=== PATIENT | female | born 1945 | race Two or more races ===

== ENCOUNTER 2019-02-07 22:51 | Inpatient (IN) | payer MEDICARE, MEDICAID ==
[~2019-02-07] VITALS: Ht 162.6 cm; Wt 86.2 kg
--- NOTE | 2019-02-07 22:55 | NUR ---
ED Nurse Note: Pt MAUDEA RA 32, no medicl complaints at this time, [facility] home refused to accept pt from EMS after being sent home from a clinic. Pt is AO x 3~4 times, on 2L N/C. KIRA seen Pt at bedside.
[2019-02-07] MEDS ORDERED: AMLODIPINE BESY10 MG ORAL (23:02)
[2019-02-07] MEDS ORDERED: ASPIRIN81 MG ORAL (23:02)
[2019-02-07] MEDS ORDERED: LANTUS SOL100 UNIT/1 SUBQ (23:02)
[2019-02-07] MEDS ORDERED: ATORVASTATIN CA40 MG ORAL (23:02)
[2019-02-07] MEDS ORDERED: HYDRALAZINE HCL50 MG ORAL (23:02)
[2019-02-07] MEDS ORDERED: FUROSEMIDE40 MG ORAL (23:02)
[2019-02-07] MEDS ORDERED: METOPROLOL SUC100 MG ORAL (23:02)
[2019-02-07] MEDS ORDERED: METFORMIN HCL1000 M1 ORAL (23:02)
[2019-02-07] MEDS ORDERED: LISINOPRIL40 MG ORAL (23:02)
[2019-02-07] MEDS ORDERED: CLOPIDOGREL75 MG ORAL (23:02)
--- NOTE | 2019-02-07 23:20 | Emergency Room Report ---
History of Present Illness General Chief Complaint: General Complaint Source: Patient, Medical Record Present Illness HPI This is a 73-year-old female with a history of diabetes, CHF, frequent fall who was just discharged from [facility] on January 30, 2018 for acute CHF exacerbation. [facility] for chief complaint of increasing weakness and fall. Work-up data showed elevated glucose and patient was given insulin. Also labs and chest x- ray show CHF. Patient was given a dose of Lasix. She was hypoxic on room air at 83%. On 4 L it went to 98%. She was seen there and sent to a SNF via BLS. When she moved at the skilled nursing, because of her condition, they refused admission and EMS brought her here instead. Patient is complaining of generalized weakness. Denies any other trauma. Denies any fever chills but denies any nausea or vomiting. Allergies: Uncoded Allergies: SULFA (Allergy, Unknown, 02/07/19) Patient History Past Medical History: see triage record, old chart reviewed, DM, HTN Past Surgical History: other Pertinent Family History: none Social History: Denies: smoking Now: No Immunizations: other Reviewed Nursing Documentation: PMH: Agreed; PSxH: Agreed Nursing Documentation-PMH Past Medical History: No Stated History Hx Cardiac Problems: Yes - CHF Hx Hypertension: Yes Hx COPD: Yes Hx Diabetes: Yes Review of Systems Constitutional: Reports: malaise, weakness Eye: Denies: eye pain, blurred vision ENT: Denies: ear pain, nose congestion, throat swelling Respiratory: Denies: cough, shortness of breath Cardiovascular: Denies: chest pain, palpitations Gastrointestinal: Denies: abdominal pain, diarrhea, nausea, vomiting Musculoskeletal: Denies: back pain, joint pain Skin: Denies: rash Neurological: Denies: headache, numbness Endocrine: Denies: increased thirst, increased urine Hematologic/Lymphatic: Denies: easy bruising All Other Systems: negative except mentioned in HPI Physical Exam Vital Signs Date Time Temp Pulse Resp B/P (MAP) Pulse Ox O2 Delivery O2 Flow Rate FiO2 02/07/19 22:50 98.1 18 16 121/93 (102) 97 Room Air Vitals unremarkable Sp02 EP Interpretation: reviewed, normal General Appearance: well appearing, no apparent distress, alert Head: normocephalic, atraumatic Eyes: bilateral eye PERRL, bilateral eye EOMI ENT: hearing grossly normal, normal pharynx Neck: full range of motion, supple, no meningismus Respiratory: chest non-tender, normal breath sounds, rales Cardiovascular #1: regular rate, rhythm, no murmur Gastrointestinal: normal bowel sounds, non tender, no mass, no organomegaly, no bruit, non-distended Musculoskeletal: back normal, normal range of motion, other - 1+ pitting edema Psychiatric: mood/affect normal Medical Decision Making Diagnostic Impression: Primary Impression: Acute exacerbation of CHF (congestive heart failure) Qualified Codes: I50.9 - Heart failure, unspecified Additional Impressions: Uncontrolled diabetes mellitus Qualified Codes: E11.65 - Type 2 diabetes mellitus with hyperglycemia Bacteriuria ER Course Patient presents with altered mental status and weakness. Her glucose very elevated. She may have a urinary tract infection. She does have bacteruria and positive nitrite. We will go ahead and treat with antibiotics. CT negative for CVA. Troponin negative. I discussed the case with Dr. Brink who will admit. Lab Results Impression Labs with elevated BNP and glucose EKG Diagnostic Results Rate: normal, tachycardiac Rhythm: NSR ST Segments: other - bifasicular block Rhythm Strip Diag. Results EP Interpretation: yes Rate: 113 Rhythm: NSR, no PVC's, no ectopy Chest X-Ray Diagnostic Results Chest X-Ray Diagnostic Results : Chest X-Ray Ordered: Yes # of Views/Limited/Complete: 1 View Indication: Shortness of Breath EP Interpretation: Yes Interpretation: no consolidation, no effusion, no pneumothorax, other - Vascular congestion Impression: Other - chf Electronically Signed by: Franck Yanez MD CT/MRI/US Diagnostic Results CT/MRI/US Diagnostic Results : Imaging Test Ordered: CT head Impression Neg per radiologist Last Vital Signs Date Time Temp Pulse Resp B/P (MAP) Pulse Ox O2 Delivery O2 Flow Rate FiO2 02/07/19 22:50 98.1 18 16 121/93 (102) 97 Room Air Status: improved Disposition: ADMITTED INPATIENT Condition: Serious Franck Yanez MD Feb 07, 2019 23:20
[2019-02-07 23:43] LABS: APPEARANCE,URINE CLEAR; BILIRUBIN, URINE NEGATIVE (NEGATIVE); COLOR,URINE PALE YELLOW; GLUCOSE, URINE (UA) 3+ (NEGATIVE); KETONES,URINE NEGATIVE (NEGATIVE); LEUKOCYTE ESTERASE ,URINE NEGATIVE (NEGATIVE); NITRITE,URINE POSITIVE (NEGATIVE); PH,URINE 5 (4.5-8.0); PROTEIN,URINE 1+ (NEGATIVE); UROBILINOGEN,URINE NORMAL MG/DL (0.0-1.0)
--- NOTE | 2019-02-07 23:45 | NUR ---
ED Nurse Note: Pt went to CT scan.
--- NOTE | 2019-02-07 23:48 | NUR ---
ED Nurse Note: Urine and blood sample sent to lab.
[2019-02-07 23:50] LABS: BASOPHILS % (AUTO) 0.7 % (0.0-2.0); EOSINOPHILS % (AUTO) 1.7 % (0.0-3.0); HEMATOCRIT 37.9 % (37.0-47.0); HEMOGLOBIN 11.7 G/DL (12.0-16.0); LYMPHOCYTES % (AUTO) 11.1 % (20.0-45.0); MEAN CORPUSCULAR VOLUME 91 FL (80-99); MONOCYTES % (AUTO) 8.1 % (1.0-10.0); NEUTROPHILS % (AUTO) 78.5 % (45.0-75.0); PLATELET COUNT 586 K/UL (150-450); RED BLOOD COUNT 4.17 M/UL (4.20-5.40); RED CELL DISTRIBUTION WIDTH 15.6 % (11.6-14.8); WHITE BLOOD COUNT 9.9 K/UL (4.8-10.8)
[2019-02-07 23:51] VITALS: BP 134/90
[2019-02-08] VITALS (19 sets, daily range): BP systolic 105–167; BP diastolic 52–88
--- NOTE | 2019-02-08 00:38 | Diagnostic Imaging Report ---
Indications: Altered mental status Technique: Spiral acquisitions obtained through the brain. Angled axial and coronal 5 x 5 mm slices were reconstructed. Total dose length product 1415.01 mGycm. CTDI vol(s) 70.38 mGy. Dose reduction achieved using automated exposure control Comparison: None. Findings: No acute intracranial hemorrhage or edema, mass effect, nor midline shift. Small old deep white matter infarct is seen in the right frontal deep white matter. Otherwise normal vaz-white differentiation. Normal size ventricles and extra axial CSF spaces. Intact calvarium. The mastoids are clear. Visualized orbits and sinuses are unremarkable. 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 The CT scanner at [facility] is accredited by the [employer] and the scans are performed using protocols designed to limit radiation exposure to as low as reasonably achievable to attain images of sufficient resolution adequate for diagnostic evaluation.
[2019-02-08 00:43] LABS: ALANINE AMINOTRANSFERASE 13 U/L (12-78); ALBUMIN 3.3 G/DL (3.4-5.0); ALBUMIN/GLOBULIN RATIO 0.7 (1.0-2.7); ALKALINE PHOSPHATASE 146 U/L (46-116); ANION GAP 3 mmol/L (5-15); ASPARTATE AMINO TRANSFERASE 30 U/L (15-37); BILIRUBIN,TOTAL 0.4 MG/DL (0.2-1.0); BLOOD UREA NITROGEN 26 mg/dL (7-18); CARBON DIOXIDE 38 MMOL/L (21-32); CHLORIDE 97 MMOL/L (98-107); CKMB < 0.5 NG/ML (0.0-3.6); CREATINE KINASE 87 U/L (26-308); CREATININE 1.1 MG/DL (0.55-1.30); SODIUM 138 MMOL/L (136-145)
[2019-02-08 00:45] LABS: POTASSIUM 6.6 MMOL/L (3.5-5.1)
--- NOTE | 2019-02-08 00:47 | NUR ---
ED Nurse Note: Demographics finally obtained. Message left with Pt's daughter, Val Hanna ([phone]). Addendum: 02/08/19 at 0358 by [employer] Pt's daughter returned call - informed of her mother's whereabouts.
[2019-02-08] MEDS ORDERED: cefTRIAXone 1 GM in NS 55 ML IVPB ONE (03:15)
[2019-02-08] MEDS ORDERED: Insulin Human Regular 100units/ml 3ml IV ONE (03:15)
--- NOTE | 2019-02-08 04:25 | NUR ---
ED Nurse Note: Recheck BS 347. Pt admit to Tele room 214-2. Report given to ANDREW Garvin. Pt is current asleep,VSS, on 2L N/C 100% O2 Sat no distress.
--- NOTE | 2019-02-08 04:46 | NUR ---
NURSE NOTES: Received pt from ED via gurney. Pt transferred to telemetry unit and bed without any incident. Received report from ANDREW Kennedy. Pt is lethargic; arousable by name and light shaking. Pt is currently on 3L N/C, breathing through mouth and using accessory muscles; saturating at 95%. Vital signs are stable. prosthetic dentist is in placed, IV site intact, asymptomatic, and patent. Bed is in the lowest position and locked. Belongings list checked and accounted. Will call Dr. Brink for admission orders.
--- NOTE | 2019-02-08 05:05 | NUR ---
NURSE NOTES: Called respiratory therapist, Alexandre, who put pt on venturi mask at 6L, 35%. Pt's O2 is saturating at 93% with history of COPD.
--- NOTE | 2019-02-08 05:32 | NUR ---
NURSE NOTES: Received admission orders from Dr. Brink. Also, notified Dr. Brink that pt is currently lethargic, on venturi mask at 6L 35%, using accessory muscles and breathing through mouth. Dr. Brink said okay. Also mentioned that pt is currently A.Fib on quality assurance monitor body and confirmed with EKG tracing; Dr. Brink ordered Eliquis 5mg BID and to also put Dr. Martínez as a farm owner operator consultation.
[2019-02-08] MEDS ORDERED: HydrALAZINE 50mg tab ORAL SCH (06:00)
[2019-02-08] MEDS ORDERED: NovoLOG Insulin Flexpen SUBQ SCH (06:30)
--- NOTE | 2019-02-08 07:25 | NUR ---
NURSE NOTES: Received patient from ANDREW Garvin. Patient is lethargic and responded to voice. Patient is on youth nutritional monitor and afib. Patient is on venturi mask 6L 35%. Patient is breathing labored and using accessory muscles. Was endorsed that Dr. Brink is aware of patient labored breathing. In addition, notified Clement, respiratory therapist and Nba charge nurse. Patient has Turner that is intact and patent. Patient is on fall precaution. Bed alarm is on, call light in place, bed in lowest position, side rails x 3. Will follow up plan of care.
--- NOTE | 2019-02-08 08:21 | NUR ---
CASE MANAGEMENT:REVIEW 73 YR OLD FEMALE BIBA FROM [address] SI: CHF. UNCONTROLLED DM 98.0 18 79 121/93 97% ON RA K+6.6 BUN+26 IS: IV LASIX IV ROCEPHIN IV INSULIN CT HEAD CHEST XRAY : TO TELEMETRY
--- NOTE | 2019-02-08 08:28 | NUR ---
HAND-OFF: Report given to ANDREW White.
--- NOTE | 2019-02-08 08:57 | History & Physical ---
History and Physical History & Physicial dict Acute resp failure w CO2 narcosis transfer to ICU BiPAP Blu Brink MD Feb 08, 2019 08:57
[2019-02-08] MEDS ORDERED: metFORMIN 500mg tab ORAL SCH ×3 (09:00→18:00)
[2019-02-08] MEDS ORDERED: Lisinopril 20mg tab ORAL SCH (09:00)
[2019-02-08] MEDS ORDERED: Eliquis 5mg tablet ORAL SCH (09:00)
[2019-02-08] MEDS ORDERED: Aspirin Baby 81mg ORAL SCH (09:00)
[2019-02-08] MEDS ORDERED: Albuterol/Ipratropium 3ml neb HHN SCH (09:00)
[2019-02-08] MEDS ORDERED: Metoprolol Succinate XL 100mg tab ORAL SCH (09:00)
--- NOTE | 2019-02-08 09:00 | NUR ---
NURSE NOTES: ABG done. Notified Dr. Brink results. Order received to go to ICU.
--- NOTE | 2019-02-08 09:40 | NUR ---
HAND-OFF: Report given to ANDREW Palacios. Patient transfer to ICU room F. Patient is baseline lethargic and responded to voice. Patient is on pathology lab technician and afib. Patient is on venturi mask 6L 35%. Patient is breathing labored and using accessory muscles. Patient has Turner that is intact, draining and patent. Patient is on fall precaution. Bed alarm is on, call light in place, bed in lowest position, side rails x 3. Noted IV heplock is infiltrated and was removed. Addendum: 02/08/19 at 1312 by Christopher Zaman RN Belonging checklist signed.
--- NOTE | 2019-02-08 09:40 | NUR ---
NURSE NOTES: Unable to give Lasix 40mg IVPB. IV on right hand infiltrated. Attempted twice to insert IV. was unsuccessful. was endorse to ICU nurse Suzanne.
--- NOTE | 2019-02-08 09:45 | NUR ---
NURSE NOTES: Received pt who was transferred from [facility] via hospital bed to ICU. Pt hand off report received from Christopher MORALES. Pt is asleep, lethargic, responsive to painful stimuli. Pt is currently on Venturi mask at 6L, and is currently being placed on BIPAP per MD order by RT with settings 14/5 and FIO2 40% with O2sat fluctuating from 92-98%. Diminished breath sounds noted on auscultation. environmental monitoring specialist displays AFib with heart rate fluctuating in the 90's and palpable bounding peripheral pulses with edema on lower extremities. Pt has no IV access at this time. Will attempt to access peripheral line. Abdomen is large, round, distended, slightly hard/nontender to touch with hypoactive bowel sounds. Turner catheter is in place draining clear, yellow urine. Bed is locked with three side rails up, in lowest position and call light within easy reach. Will continue to monitor pt and follow plan of care per MD orders and protocol.
--- NOTE | 2019-02-08 09:50 | NUR ---
RESPIRATORY NOTE: Placed pt on Bipap 14/5- back up rate 12- 30%FiO2. Pt is lethargic, tolerating well with the setting. Foam tapes applied to cheeks, chin, and nose bridge to prevent skin breakdown, no redness or skin breakdown on pt face. End tidal CO2 monitor in place at bedside, EtCO2 75mmHg. No SOB or resp distress noted at this time. Alarms are set and audible, Bipap is plugged into the red outlet, ambu bag is at bedside. Will continue to monitor pt.
--- NOTE | 2019-02-08 10:30 | Diagnostic Imaging Report ---
Indication: Shortness of breath and coughing Technique: One view of the chest Comparison: None Findings: Body habitus limits evaluation. Suboptimal inspiration. The heart is enlarged. There is a left chest bifocal pacemaker. There is equivocal mild central interstitial congestive changes. Impression: Cardiomegaly Equivocal mild interstitial congestion correlate with clinical findings
--- NOTE | 2019-02-08 10:30 | NUR ---
NURSE NOTES: Order and consent was received for PICC placement if unable to obtain peripheral IV access. security installation technician was at bedside and able to obtain two peripheral IV access, right AC #20G, and left AC #18G.
--- NOTE | 2019-02-08 10:42 | NUR ---
*-* NO INSURANCE INFORMATION IN THE BAR UNABLE TO SEND CLINICALS *-*
--- NOTE | 2019-02-08 11:00 | NUR ---
NURSE NOTES: Pt is asleep, awakens to touch, however lethargic. VS stable while currently on BIPAP. Family now at bedside. Turner continues to drain yellow urine with sediments. Pt is afebrile.
[2019-02-08] MEDS: NovoLOG Insulin Flexpen SUBQ SCH ×3 (11:30→21:33)
--- NOTE | 2019-02-08 12:00 | NUR ---
NURSE NOTES: Pt is maintained on Bipap with settings 14/5 and FIO2 currently at 40% with O2sat fluctuating above 94%. alarm security or surveillance monitor displays arrhythmia with heart rate in the upper 90's-100's. Pt remains afebrile. Pt has been repositioned with extremities elevated on pillows. Head of bed at semi-neal's.
[2019-02-08] MEDS: Albuterol/Ipratropium 3ml neb HHN SCH ×2 (12:50→19:00)
--- NOTE | 2019-02-08 13:00 | History and Physical Report ---
DATE OF ADMISSION: 02/08/2019 CHIEF COMPLAINT: Short of breath. HISTORY OF PRESENT ILLNESS: The patient is a 73-year-old woman, who was admitted because of shortness of breath and diabetes, out of control. She was recently hospitalized at another facility for similar problems and was discharged home. She became weak at home after several days and yesterday the family brought her to urgent care where she was evaluated. She was found to have compensated heart failure and frequent falls. Her blood sugar was 437 in the urgent care facility, but she was discharged to a snf care facility. When she arrived there, she was lethargic and in respiratory distress and they refused her and she was redirected to the emergency department here. The patient is poorly responsive and can provide no additional history. Records reviewed. PAST MEDICAL HISTORY: Congestive heart failure, type 2 diabetes, frequent falls, sick sinus syndrome, pacemaker, COPD, sleep apnea, anemia, aortic atherosclerosis, coronary heart disease, chronic back pain, chronic diastolic heart failure, chronic kidney disease, hyperlipidemia, degenerative disc disease, peripheral neuropathy, and morbid obesity. She is oxygen dependent. She has had a coronary stent placed in the past. She has diabetic retinopathy. There is vitamin D deficiency. ALLERGIES: Sulfa. CODE STATUS: DNR. SURGICAL HISTORY: Cholecystectomy, pacemaker. SOCIAL HISTORY: She does not drink or smoke. REVIEW OF SYSTEMS: Cannot be obtained. MEDICATIONS: Advair, amlodipine, baby aspirin, Lipitor, insulin, Plavix, Lasix, hydralazine, iron, Januvia, lisinopril, metformin, metoprolol, and vitamin D. PHYSICAL EXAMINATION: GENERAL: The patient is poorly responsive, but is arousable. VITAL SIGNS: Blood pressure is satisfactory, heart rate was 79 to 92, saturations 93% to 100% on mask oxygen. There is no fever. She is somewhat overweight. HEENT: Head is normocephalic. NECK: No jugular veins visible. CHEST: Has a few rhonchi. CARDIAC: Irregular with rate controlled. ABDOMEN: Soft and nontender. Liver and spleen are not enlarged. EXTREMITIES: No clubbing, cyanosis, or edema. DIAGNOSTIC AND LABORATORY DATA: Chest x-ray is reported to show vascular congestion. It is not available for my review. EKG shows right bundle-branch block and atrial fibrillation. Laboratory tests show the blood sugar was 424, but improved somewhat with insulin. Potassium was 6.6, but improved on repeat. BUN is 26, creatinine 1.1. Natriuretic peptide 4000. Troponin negative. Albumin is 3.3. White count is normal, hemoglobin is 11.7, and platelets are high at 586,000. Urinalysis shows protein and glucose. CT brain showed an old infarct, but nothing acute. IMPRESSION: 1. Congestive heart failure. 2. Diabetes, out of control. 3. 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 4. COPD. 5. Sleep apnea. 6. Atrial fibrillation, not on anticoagulants. 7. Coronary heart disease. 8. Aortic atherosclerosis. PLAN: The patient will be cared for on the telemetry floor. We will get a stat blood gas to evaluate for possible CO2 narcosis. Cardiology and Endocrinology have been called for consultation. Neurology may be appropriate. If she has respiratory failure, she may be transferred to ICU. We will give Lasix intravenous and increase the insulin as needed. Blu Brink M.D. DR: JAMI JOB#: [id number] CC:
[2019-02-08] MEDS: HydrALAZINE 50mg tab ORAL SCH ×2 (14:00→22:20)
--- NOTE | 2019-02-08 14:00 | NUR ---
NURSE NOTES: Pt is maintained on Bipap with settings 14/5 and FIO2 at 40% with O2sat above 95%. Pt's daughter and son are now at bedside. VS stable. Pt was repositioned.
--- NOTE | 2019-02-08 15:09 | Cardiology Report ---
APPROVED REPORT EXAM: Two-dimensional and M-mode echocardiogram with Doppler and color Doppler. INDICATION Atrial fibrillation M-Mode DIMENSIONS IVSd1.7 (0.7-1.1cm)Left Atrium (MM)4.8 (1.6-4.0cm) LVDd3.6 (3.5-5.6cm)Aortic Root2.2 (2.0-3.7cm) PWd1.5 (0.7-1.1cm)Aortic Cusp Exc.1.5 (1.5-2.0cm) LVDs2.6 (2.5-4.0cm) PWs1.7 cm Technically difficult study due to poor acoustic windows. Study quality precludes accurate assessment of regional wall motion. Normal left ventricular chamber size. Global left ventricular hypokinesis. Left ventricular ejection fraction estimated to be 40-45 %. Mild left ventricular hypertrophy. No evidence of pericardial effusion. Mild left atrial enlargement. Right atrial size at upper limits of normal. Right ventricular chamber sizes is within normal limits. Focal aortic valve sclerosis with adequate cusp excursion. Mildly thickened mitral valve leaflets with normal excursion. Mild mitral annulus and aortic root calcification. Normal pulmonic valve structure. Normal tricuspid valve structure. IVC dilated at 2.3 cm without physiological collapse. A color flow and spectral Doppler study was performed and revealed: No aortic regurgitation. Mild mitral regurgitation. Left ventricular diastolic function could not be determined due to A-Fib. Mild tricuspid regurgitation. Tricuspid systolic velocities suggests peak right ventricular systolic pressure of 31 mmHg. Trace pulmonic regurgitation present.
--- NOTE | 2019-02-08 15:10 | Cardiology Report ---
APPROVED REPORT EKG Measurement Heart [id number] Atrial flutter with variable AV block Right bundle branch block Left posterior fascicular block Bifascicular block T wave abnormality, consider inferior ischemia Abnormal ECG
--- NOTE | 2019-02-08 15:13 | Cardiology Report ---
APPROVED REPORT EKG Measurement Heart [id number] CA 96P [id number] Sinus tachycardia with short CA Right bundle branch block Left posterior fascicular block Bifascicular block Abnormal ECG
--- NOTE | 2019-02-08 16:00 | NUR ---
NURSE NOTES: RT at bedside. ABGs were redrawn and results reported to Dr Brink. Per Dr Brink's advise, ER MD was contacted and plan is now to intubate pt. Pt's family is aware and in the waiting room. VS stable currently.
--- NOTE | 2019-02-08 16:33 | Emergency Room Report ---
History of Present Illness General Chief Complaint: General Complaint Source: Patient, Medical Record Present Illness Allergies: Coded Allergies: SULFA (SULFONAMIDE ANTIBIOTICS) (Unverified Allergy, Unknown, 02/08/19) Uncoded Allergies: SULFA (Allergy, Unknown, 02/07/19) Patient History Now: No Nursing Documentation-[facility] Past Medical History: No History, Except For Hx Cardiac Problems: Yes Hx Hypertension: Yes Hx Pacemaker: Yes - Lt chest Hx Asthma: Yes Hx COPD: Yes Hx Diabetes: Yes Hx Cancer: No Hx Gastrointestinal Problems: No Hx Neurological Problems: No Physical Exam Vital Signs Date Time Temp Pulse Resp B/P (MAP) Pulse Ox O2 Delivery O2 Flow Rate FiO2 02/07/19 22:50 98.1 18 16 121/93 (102) 97 Room Air 02/08/19 04:46 6.0 02/08/19 09:50 30 Procedures Critical Care Time Critical Care Time i. I feel this is a highly complex case requiring extensive working including EKG/Rhythm strip, Xray/CT/US, Blood/urine lab work, repeat exams while in ED, and administration of strong opiates/narcotics for pain control, admission to hospital or close patient follow up. Total time: 30 min bedside evaluation and treatment excludes procedures (EKG). Reason for critical care: hypercapnia, acidosis, COPD Possible complications: hypotension, hypertension, WI, shock, arrhythmias, metabolic acidosis, end organ damage, respiratory failure. Interventions: interpretation of ABG. intubation. Course: Called to evaluate this patient in the ICU. On BiPAP for COPD. After several hours of BiPAP repeat ABG shows worsening of PCO2 and pH. Patient remains lethargic. I made decision to intubate patient. Intubated without complication. Repeat chest x-ray shows ET tube in mainstem bronchus. Will be pulled back and adjusted accordingly Consultations: nursing staff, EMS, family Performed by: Dr Barnett Tolerated well condition = critical j. because of unstable vital signs this patient had a condition that could potentially threaten life or limb. I feel this is a critical patient who required my full attention while patient was considered critical. Total Critical Care Time excluding procedures was greater than 30 minutes Intubation Intubation : Consent: Emergent Intubation Method: orotracheal Tube Size (cm): 7.5 Medications: Etomidate, Rocuronium Breath Sounds after Intubation: equal Intubation Complications: no complications Post Intubation Xray: Yes Progress/Xray Impression: ET TUbe in Right Mainstem Bronchus Attempts: One Patient Tolerated: Well Complications: None Medical Decision Making Diagnostic Impression: Primary Impression: Acute exacerbation of CHF (congestive heart failure) Qualified Codes: I50.9 - Heart failure, unspecified Additional Impressions: Bacteriuria Uncontrolled diabetes mellitus Qualified Codes: E11.65 - Type 2 diabetes mellitus with hyperglycemia ER Course I was called to evaluate this patient in the ICU. On BiPAP for COPD. After several hours of BiPAP patient ABG getting worse and PCO2 getting worse. Patient is lethargic. I made decision to intubate patient. Good breath sounds bilaterally. O2 sats improved. Repeat chest x-ray shows ET tube in mainstem bronchus. Will be adjusted accordingly. Care resumed by admitting physician Last Vital Signs Date Time Temp Pulse Resp B/P (MAP) Pulse Ox O2 Delivery O2 Flow Rate FiO2 02/08/19 14:00 97 15 120/81 (94) 99 02/08/19 12:52 Facial 40 02/08/19 12:00 98.0 02/08/19 09:00 6.0 Status: improved Disposition: ADMITTED INPATIENT Condition: Critical Referrals: [facility]ERR[facility] (PCP) Eliel Barnett MD Feb 08, 2019 16:33
--- NOTE | 2019-02-08 16:39 | NUR ---
RESPIRATORY NOTE: Intubated patient with a 7.5 ETT at 23cm at the lip. ACVC 20, VT 500, 40% fio2, Peep +5. Patient currently sedated. Will continue to monitor.
--- NOTE | 2019-02-08 16:48 | Diagnostic Imaging Report ---
Indication: Post intubation Technique: One view of the chest Comparison: 02/07/2019 Findings: Left chest bipolar pacemaker is again demonstrated. Interim endotracheal intubation, endotracheal tube projecting slightly into the right mainstem bronchus. There is better inspiration. Lungs and pleural spaces are clear. Heart size is enlarged. Impression: Low position of endotracheal tube, within the right mainstem bronchus. Retraction recommended. This critical value finding was discussed by phone with Dr. Barnett previously Cardiomegaly Apparent improved interstitial congestion, probably in part apparent and artifactual due to better aeration of the lungs
--- NOTE | 2019-02-08 17:00 | NUR ---
NURSE NOTES: Pt was intubated at bedside by ER MD, two RTs at bedside. ETT 7.5, currently at 23cm lipline, with vent settings AC20, VT500, Peep 5.0, FIO2 40%, with O2sat now at 100%. Sputum culture was collected and sent to lab. VS stable.
[2019-02-08] MEDS ORDERED: LORazepam Inj 2mg/ml 1ml IV PRN (17:15)
[2019-02-08] MEDS: Eliquis 5mg tablet ORAL SCH (17:27)
--- NOTE | 2019-02-08 17:28 | Diagnostic Imaging Report ---
Indication: Status post repositioning of malpositioned endotracheal tube Technique: One view of the chest Comparison: One hour earlier Findings: Interim improved position previously malpositioned endotracheal tube, tip now in satisfactory position approximately 3 cm above the karlee. Other findings are unchanged Impression: Improved and now satisfactory position of endotracheal tube
--- NOTE | 2019-02-08 18:08 | NUR ---
RESPIRATORY NOTE: Ordered by Dr. Brink to cut ETT. Cut at 25 cm at the lip. Addendum: 02/08/19 at 1809 by MARYBETH FAYE RT Dr. Brink at bedside.
--- NOTE | 2019-02-08 18:30 | NUR ---
NURSE NOTES: Per radiologist recommendation, ETT was repositioned to 20cm at lipline and now confirmed with good position with xray. Radiologist informed charge nurse. VS stable. Pt was cleaned, gown and linens changed, oral care done and pt repositioned.
--- NOTE | 2019-02-08 18:45 | NUR ---
NURSE NOTES: Orders received from Dr Brink for daily labs at 0400 CBC, CMP and ABGs. Order also received for NG tube insertion to for PO med administration and to start tube feeding per nutrition consult recommendation. Order also received for Troponin Q8hrs x3 and lipid/TSH for 0400 tomorrow, venous duplex and SCDS. Will process all orders, follow and endorse to next shift.
--- NOTE | 2019-02-08 19:00 | NUR ---
NURSE NOTES: NG tube was inserted. Will place order for KUB confirmation.
--- NOTE | 2019-02-08 19:01 | NUR ---
RESPIRATORY NOTE: Received pt on AC 20, 500VT, 40%, PEEP +5. Pt intubated w/ ETT 7.5 @ 20cm lipline, secured by anchorfast. Pt sedated. B/S sarthak. rhonchi, sxn small amounts of thick/thin, pale-yellow secretions w/ occasional red specks. Bite block in place as pt tends to clench jaw. Both hands on soft-restraints to prevent pt from self-extubation. Vent plugged into red outlet, ambubag at bedside. Pt in no apparent distress at this time. Will continue to monitor pt.
--- NOTE | 2019-02-08 19:15 | NUR ---
NURSE NOTES: Endorsement received from ANDREW Palacios. Patient asleep, responds to pain. Orally intubated with ET 7.5, 20 lipline. AC 20,. Vt 500, PEEP 5, 40% FiO2. With NGT at right nare, pending confirmation with KUB. With heplock g 20 at right AC, and left AC g18. Turner catheter draining to urimeter. With bilateral soft wrists restraints for attempting to pull out tubings. Head of bed elevated, locked and in low position. Bed alarm on, call light within reach.
--- NOTE | 2019-02-08 19:30 | NUR ---
NURSE NOTES: Patient connected to ETCO2 monitor, current reading at 30.
--- NOTE | 2019-02-08 19:30 | NUR ---
HAND-OFF: Report given to Ailin MORALES. Endorsed plan of care. VS stable.
--- NOTE | 2019-02-08 19:45 | NUR ---
NURSE NOTES: news gathering technician at bedside for KUB
--- NOTE | 2019-02-08 19:45 | Consultation ---
DATE OF CONSULTATION: 02/08/2019 ENDOCRINOLOGY CONSULTATION CONSULTING PHYSICIAN: Garett Shay M.D. REFERRING PHYSICIAN: Blu Brink M.D. REASON FOR CONSULTATION: Diabetes management. HISTORY OF PRESENT ILLNESS: The patient is a 73-year-old female who was admitted to the hospital with respiratory failure. Currently, recently she was intubated and she is in the ICU. Therefore, history is obtained from review of the chart and medical records. The patient has diabetes and is on combination of Levemir, NovoLog, and metformin as an outpatient. Additionally, she has history of heart failure. PAST MEDICAL HISTORY: 1. CHF. 2. Type 2 diabetes. 3. Frequent falls. 4. Sinus sick syndrome. 5. COPD. 6. Sleep apnea. 7. Anemia. 8. Aortic atherosclerosis 9. Coronary artery disease. 10. Chronic back pain. 11. Chronic kidney disease. 12. Hyperlipidemia. 13. Peripheral neuropathy. 14. Vitamin D deficiency. PAST SURGICAL HISTORY: 1. Pacemaker placement. 2. Cholecystectomy. ALLERGIES: Sulfa. SOCIAL HISTORY: No smoking, alcohol, or drug use. REVIEW OF SYSTEMS: Unobtainable. MEDICATIONS: Reviewed and reconciled. PHYSICAL EXAMINATION: GENERAL: The patient is intubated. VITAL SIGNS: Blood pressure 110/80, pulse 80, temperature 98.2, respiratory rate 18. HEENT: Pupils are equal and reactive to light. Orally intubated. NECK: No JVD. HEART: Tachycardia. LUNGS: Decreased breath sounds. ABDOMEN: Positive bowel sounds. EXTREMITIES: No clubbing, cyanosis. Positive for edema. LABORATORY DATA: WBC 9.9, hemoglobin 11, hematocrit 37, platelets of 586. Sodium 138, potassium 6.6, chloride 97, bicarbonate 38, BUN 26, creatinine 1.1, glucose of 424. BNP of 4079. DIAGNOSES: 1. Hypercapnic respiratory failure. 2. CHF. 3. Diabetes out of control. PLAN: 1. Discontinue metformin. 2. Continue Levemir 25 units daily. 3. NovoLog sliding scale high dose every 4 hours. 4. Further adjustment according to blood glucose values. 5. I will follow the patient closely during hospital stay. Thank you, Dr. Brink, for the courtesy of this consultation. Garett Shay M.D. DR: Tushar JOB#: [id number] CC: TRENT
--- NOTE | 2019-02-08 20:15 | NUR ---
NURSE NOTES: Patient has episodes of non sustained v tach, 4-[address] Martínez and left a message. Awaiting for return call.
--- NOTE | 2019-02-08 20:18 | Diagnostic Imaging Report ---
EXAM: XR Abdomen, 1 View CLINICAL HISTORY: TUBE PLCMT TECHNIQUE: Frontal supine view of the abdomen/pelvis. COMPARISON: No relevant prior studies available. FINDINGS: Lower thorax: Pacemaker and cardiomegaly. Gastrointestinal tract: Enteric tube at the gastroduodenal junction. Organs: Cholecystectomy clips. Bones/joints: No acute fracture. Tubes, lines and devices: Endotracheal tube in the distal trachea, approximately 1 cm above the karlee. IMPRESSION: Enteric tube at the gastroduodenal junction.
[2019-02-08] MEDS ORDERED: Atorvastatin 80mg tab ORAL SCH (21:00)
[2019-02-08] MEDS ORDERED: Levemir Flexpen SUBQ SCH ×2 (21:00)
--- NOTE | 2019-02-08 21:00 | NUR ---
NURSE NOTES: Patient NPO, half dose of levemir = 12 units given as ordered
--- NOTE | 2019-02-08 21:20 | NUR ---
NURSE NOTES: Dr. Martínez returned the call with new orders for stat BNP, Troponin and Magnesium
[2019-02-08] MEDS: Atorvastatin 80mg tab ORAL SCH (21:26)
[2019-02-08] MEDS: Pantoprazole Inj IVP SCH (21:27)
[2019-02-08] MEDS: Solu-MEDROL 40mg Inj IVP SCH (22:19)
--- NOTE | 2019-02-08 22:29 | NUR ---
NURSE NOTES: Lab results available, called Dr. Martínez. Left a message, awaiting for return call.
--- NOTE | 2019-02-08 23:30 | NUR ---
NURSE NOTES: Patient seen and examined by Dr. Martínez with orders in.
[2019-02-08 23:53] LABS: ANION GAP 7 mmol/L (5-15); BLOOD UREA NITROGEN 34 mg/dL (7-18); CALCIUM 9.7 MG/DL (8.5-10.1); CARBON DIOXIDE 37 MMOL/L (21-32); CHLORIDE 100 MMOL/L (98-107); CREATININE 1.4 MG/DL (0.55-1.30); POTASSIUM 3.8 MMOL/L (3.5-5.1); SODIUM 144 MMOL/L (136-145)
[2019-02-09] VITALS (24 sets, daily range): BP systolic 93–133; BP diastolic 54–76
--- NOTE | 2019-02-09 01:00 | Consultation ---
DATE OF CONSULTATION: 02/08/2019 CARDIOLOGY CONSULTATION CONSULTING PHYSICIAN: Dominic Martínez M.D. REFERRING PHYSICIAN: Blu Brink M.D. REASON FOR CONSULTATION: Respiratory failure with congestive heart failure. HISTORY OF PRESENT ILLNESS: This 73-year-old female was admitted to the hospital with shortness of breath. She was noted to have signs of acute congestive heart failure. She subsequently deteriorated with regard to respiratory parameters and required intubation and mechanical ventilation. I have been asked to assist with further cardiovascular care. The patient had an echocardiogram performed earlier today that revealed an ejection fraction in the range of 45% with areas of hypokinesis and mild valvular regurgitation. PAST MEDICAL HISTORY: Permanent pacemaker, paroxysmal atrial fibrillation, sick sinus syndrome, coronary artery disease, history of coronary stent, hypertension with hypertensive heart disease and congestive heart failure, COPD, sleep apnea, anemia of chronic kidney disease, type 2 diabetes mellitus, diabetic nephropathy, hyperlipidemia, degenerative disk disease, peripheral neuropathy, obesity, diabetic retinopathy, and vitamin D deficiency. Prior cholecystectomy. ALLERGIES: Sulfa. ADVANCED DIRECTIVES: DNR. MEDICATIONS: Prior to admission, reviewed and reconciled. Current medications reviewed in the MAR. FAMILY HISTORY: Noncontributory. SOCIAL HISTORY: No record of smoking or alcohol use. REVIEW OF SYSTEMS: Cannot be obtained from the patient at this time. Pertinent data from records is outlined above after extensive review. PHYSICAL EXAMINATION: GENERAL: She is orally intubated. Mechanically ventilated. VITAL SIGNS: Blood pressure 151/79, heart rate 121, respiratory rate 22, and temperature 98.2. HEENT: Orally intubated. Mechanically ventilated. NECK: Thin trach secretions. LUNGS: Bilateral rales. Accessory muscle use. HEART: Irregularly irregular rhythm. Normal S1, increased splitting S2. Respiratory sounds obscure further cardiac evaluation and murmur cannot be auscultated. ABDOMEN: Soft and nontender. EXTREMITIES: 1+ dependent edema. NEUROLOGIC: She is able to respond to painful stimuli with symmetric movement of the extremities. DIAGNOSTIC DATA: EKG reveals atrial fibrillation/flutter, right bundle and left anterior hemiblock. LABORATORY DATA: Notable for sodium 138, potassium 6.6 repeated 4.6, bicarb 38, BUN 26, and creatinine 1.1. Glucose 424. Magnesium 1.7. Troponin 1 is 0.012, troponin 2 is 0.024. Pro-natriuretic peptide initially was 4000, now 5700. Albumin 3.3. White count 9.9, hemoglobin 11.7. ABG pre-intubation 7.24, 120, 51. IMPRESSION: 1. Acute respiratory failure. 2. Acute respiratory acidosis. 3. Acute on chronic diastolic and systolic congestive heart failure. 4. Ischemic cardiomyopathy. 5. Hypertensive heart disease. 6. Insulin requiring diabetes with multiple complications. 7. Mild protein-calorie malnutrition. 8. Mild hypomagnesemia. 9. Paroxysmal atrial fibrillation and flutter. 10. Permanent pacemaker. PLAN: 1. ICU unit monitoring and care. 2. Intravenous diuresis. 3. Titration of anti-failure and antihypertensive. 4. Monitor potassium and replace accordingly IV magnesium at this time. 5. Full anticoagulation with apixaban for cardioembolic prophylaxis. 6. Sputum culture. 7. Empiric antimicrobials. 8. Condition is critical. 9. Prognosis guarded. 10. Follow up lipid panel, chemistry panel, thyroid function, and trend natriuretic peptide assay. Dominic Martíenz M.D. DR: DOROTHY JOB#: [id number] CC:
[2019-02-09] MEDS: Albuterol/Ipratropium 3ml neb HHN SCH ×4 (01:11→19:31)
[2019-02-09] MEDS: NovoLOG Insulin Flexpen SUBQ SCH ×6 (01:18→21:07)
--- NOTE | 2019-02-09 02:00 | NUR ---
NURSE NOTES: No episodes of SVT. Patient asleep. Arousable by light touch. No sign of pain or discomfort
--- NOTE | 2019-02-09 04:00 | NUR ---
NURSE NOTES: Bed bath, oral care, change of linens done. Skin is intact.
[2019-02-09] MEDS: Solu-MEDROL 40mg Inj IVP SCH ×2 (05:07→14:09)
[2019-02-09] MEDS: HydrALAZINE 50mg tab ORAL SCH ×3 (05:57→21:06)
--- NOTE | 2019-02-09 06:00 | NUR ---
NURSE NOTES: ETCO2 readinmmHg. Blood sugar checked and covered with insulin as per sliding scale
--- NOTE | 2019-02-09 06:55 | NUR ---
RESPIRATORY NOTE: Received patient on ordered vent settings. Pt airway is patent and secured. Suctioned pt prn. Vent alarms are on and audible. Vent is plugged into red outlet. Will monitor pt progress.
[2019-02-09 07:10] LABS: HEMATOCRIT 39.7 % (37.0-47.0); HEMOGLOBIN 12.3 G/DL (12.0-16.0); MEAN CORPUSCULAR VOLUME 91 FL (80-99); PLATELET COUNT 547 K/UL (150-450); RED BLOOD COUNT 4.39 M/UL (4.20-5.40); RED CELL DISTRIBUTION WIDTH 15.6 % (11.6-14.8); WHITE BLOOD COUNT 13.1 K/UL (4.8-10.8)
--- NOTE | 2019-02-09 07:24 | General Progress Note ---
Assessment/Plan Problem List: (1) Bacteriuria ICD Codes: R82.71 - Bacteriuria SNOMED: 78017355 (2) Uncontrolled diabetes mellitus ICD Codes: E11.65 - Type 2 diabetes mellitus with hyperglycemia SNOMED: 93773012, 795848652 Qualifiers: Qualified Codes: E11.65 - Type 2 diabetes mellitus with hyperglycemia (3) Acute exacerbation of CHF (congestive heart failure) ICD Codes: I50.9 - Heart failure, unspecified SNOMED: 075276016, [id number] Qualifiers: Qualified Codes: I50.9 - Heart failure, unspecified Assessment/Plan: change Levemir to 16 units bid continue NISS every 4 hours Subjective ROS Limited/Unobtainable: Yes Allergies: Coded Allergies: SULFA (SULFONAMIDE ANTIBIOTICS) (Unverified Allergy, Unknown, 02/08/19) Uncoded Allergies: SULFA (Allergy, Unknown, 02/07/19) Subjective intubated in ICU glucose values improved still on higher side on steroid Item Value Date Time Bedside Blood Glucose 217 mg/dl H 02/09/19 0607 Bedside Blood Glucose 185 mg/dl H 02/09/19 0118 Bedside Blood Glucose 244 mg/dl H 02/08/19 2133 Bedside Blood Glucose 211 mg/dl H 02/08/19 1630 Bedside Blood Glucose 196 mg/dl H 02/08/19 1130 Bedside Blood Glucose 351 mg/dl H 02/08/19 0646 Objective Last 24 Hour Vital Signs Date Time Temp Pulse Resp B/P (MAP) Pulse Ox O2 Delivery O2 Flow Rate FiO2 02/09/19 06:55 124 20 100 Mechanical Ventilator 40 02/09/19 06:55 124 20 40 02/09/19 06:55 40 02/09/19 06:00 115 20 104/68 (80) 100 02/09/19 05:57 104/68 02/09/19 05:13 120 20 40 02/09/19 05:00 121 20 105/61 (76) 100 02/09/19 04:00 99.1 120 20 93/58 (70) 100 02/09/19 04:00 40 02/09/19 04:00 124 02/09/19 04:00 Mechanical Ventilator 02/09/19 03:03 120 20 40 02/09/19 03:00 121 20 130/60 (83) 100 02/09/19 02:00 123 20 127/62 (83) 100 02/09/19 01:20 120 20 100 Mechanical Ventilator 40 02/09/19 01:10 118 20 100 Mechanical Ventilator 40 02/09/19 01:09 118 20 40 02/09/19 01:00 120 20 106/58 (74) 99 02/09/19 00:00 Mechanical Ventilator 02/09/19 00:00 99.0 122 20 118/63 (81) 99 02/09/19 00:00 40 02/09/19 00:00 122 02/08/19 23:00 123 20 105/57 (73) 100 02/08/19 23:00 126 20 40 02/08/19 22:20 126/64 02/08/19 22:00 121 20 124/65 (84) 100 02/08/19 21:05 122 20 40 02/08/19 21:00 121 21 131/68 (89) 99 02/08/19 20:00 121 02/08/19 20:00 40 02/08/19 20:00 99.1 116 20 153/88 (109) 100 02/08/19 20:00 Mechanical Ventilator 02/08/19 19:00 121 20 167/82 (110) 100 02/08/19 18:59 Mechanical Ventilator 40 02/08/19 18:59 Mechanical Ventilator 40 02/08/19 18:57 124 20 40 02/08/19 18:00 121 22 151/79 (103) 98 02/08/19 17:11 108 20 40 02/08/19 17:00 98.2 122 27 165/52 (89) 41 02/08/19 16:34 125 20 100 Mechanical Ventilator 60.0 40 02/08/19 16:28 123 20 40 02/08/19 16:00 123 02/08/19 16:00 40 02/08/19 16:00 123 20 117/63 (81) 100 02/08/19 15:00 123 15 148/70 (96) 98 02/08/19 14:00 97 15 120/81 (94) 99 02/08/19 13:00 96 16 123/76 (92) 99 02/08/19 12:52 123 18 98 Facial 40 02/08/19 12:51 Bi-Pap 40 02/08/19 12:51 123 Bi-Pap 40 02/08/19 12:00 40 02/08/19 12:00 85 02/08/19 12:00 98.0 89 17 125/75 (92) 99 02/08/19 11:15 40 02/08/19 11:00 87 14 136/76 (96) 91 02/08/19 10:35 91 14 94 Facial 30 02/08/19 10:00 96 14 121/67 (85) 93 02/08/19 09:50 98 16 96 Facial 30 02/08/19 09:50 98 16 96 Bi-Pap 30 02/08/19 09:30 98.0 95 20 135/53 (80) 90 02/08/19 09:00 Venturi Mask 6.0 02/08/19 08:00 97.7 104 24 161/83 (109) 93 Intake and Output 02/08/19 02/09/19 18:59 06:59 Intake Total 200 ml Output Total 460 ml 365 ml Balance -460 ml -165 ml Intake IV Total 200 ml Output Urine Total 460 ml 365 ml Laboratory Tests 02/08/19 08:40: Arterial Blood pH 7.268L, Arterial Blood Partial Pressure CO2 112.1*H, Arterial Blood Partial Pressure O2 79.1, Arterial Blood HCO3 50.1*H, Arterial Blood Oxygen Saturation 93.8L, Arterial Blood Base Excess 18.1*H, Ector Test Positive 02/08/19 15:00: Arterial Blood pH 7.245*L, Arterial Blood Partial Pressure CO2 121.6*H, Arterial Blood Partial Pressure O2 98.9, Arterial Blood HCO3 51.5*H, Arterial Blood Oxygen Saturation 96.3, Arterial Blood Base Excess 18.7*H, Ector Test Positive 02/08/19 17:25: Arterial Blood pH 7.527H, Arterial Blood Partial Pressure CO2 44.4, Arterial Blood Partial Pressure O2 85.2, Arterial Blood HCO3 36.0H, Arterial Blood Oxygen Saturation 97.1, Arterial Blood Base Excess 11.9*H, Ector Test Positive 02/08/19 21:40: Sodium Level 144, Potassium Level 3.8, Chloride Level 100, Carbon Dioxide Level 37H, Anion Gap 7, Blood Urea Nitrogen 34H, Creatinine 1.4H, Estimat Glomerular Filtration Rate , Glucose Level 289#H, Calcium Level 9.7, Magnesium Level 1.7L, Troponin I 0.024, Pro-B-Type Natriuretic Peptide 5724H 02/09/19 06:30: White Blood Count 13.1H, Red Blood Count 4.39, Hemoglobin 12.3, Hematocrit 39.7 , Mean Corpuscular Volume 91, Mean Corpuscular Hemoglobin 28.0, Mean Corpuscular Hemoglobin Concent 30.9L, Red Cell Distribution Width 15.6H, Platelet Count 547H, Mean Platelet Volume 5.4L, Neutrophils (%) (Auto) , Lymphocytes (%) (Auto) , Monocytes (%) (Auto) , Eosinophils (%) (Auto) , Basophils (%) (Auto) , Neutrophils % (Manual) [Pending], Lymphocytes % (Manual) [Pending], Platelet Estimate [Pending], Platelet Morphology [Pending], Sodium Level [Pending], Potassium Level [Pending], Chloride Level [Pending], Carbon Dioxide Level [Pending], Blood Urea Nitrogen [Pending], Creatinine [Pending], Estimat Glomerular Filtration Rate [Pending], Glucose Level [Pending], Calcium Level [Pending], Total Bilirubin [Pending], Aspartate Amino Transf (AST/SGOT) [ Pending], Alanine Aminotransferase (ALT/SGPT) [Pending], Alkaline Phosphatase [ Pending], Troponin I [Pending], Total Protein [Pending], Albumin [Pending], Globulin [Pending], Triglycerides Level [Pending], Cholesterol Level [Pending], LDL Cholesterol [Pending], HDL Cholesterol [Pending], Cholesterol/HDL Ratio [ Pending], Thyroid Stimulating Hormone (TSH) [Pending] 02/09/19 06:53: Arterial Blood pH 7.686*H, Arterial Blood Partial Pressure CO2 27.4L, Arterial Blood Partial Pressure O2 121.1H, Arterial Blood HCO3 32.1H, Arterial Blood Oxygen Saturation 98.6, Arterial Blood Base Excess 12.0*H, Ector Test Positive Height (Feet): 5 Height (Inches): 4.00 Weight (Pounds): 170 General Appearance: severe distress EENT: other - ETT Neck: normal alignment Cardiovascular: tachycardia Respiratory/Chest: decreased breath sounds Abdomen: normal bowel sounds Edema: 1+ Arm (L), 1+ Arm (R), 1+ Leg (L), 1+ Leg (R), 1+ Pedal (L), 1+ Pedal ( R), 1+ Generalized Objective Current Medications Medications (Trade) Dose Ordered Sig/Willy Route PRN Reason Start Time Stop Time Status Last Admin Dose Admin Albuterol/ Ipratropium (Albuterol/ Ipratropium) 3 ml Q6HRT HHN 02/08/19 13:00 02/13/19 08:59 02/09/19 01:11 Amlodipine Besylate (Norvasc) 5 mg DAILY ORAL 02/09/19 09:00 03/11/19 08:59 Apixaban (Eliquis) 5 mg BID ORAL 02/08/19 18:00 03/10/19 08:59 Aspirin (ASA) 81 mg DAILY ORAL 02/09/19 09:00 03/10/19 08:59 Atorvastatin Calcium (Lipitor) 80 mg BEDTIME ORAL 02/08/19 21:00 03/10/19 20:59 02/08/19 21:26 Clopidogrel Bisulfate (Plavix) 75 mg DAILY ORAL 02/09/19 09:00 03/10/19 08:59 Furosemide (Lasix) 40 mg EVERY 8 HOURS IV 02/09/19 06:00 03/11/19 05:59 02/09/19 05:08 Hydralazine HCl (Apresoline) 50 mg EVERY 8 HOURS ORAL 02/08/19 14:00 03/10/19 05:59 02/09/19 05:57 Insulin Aspart (NovoLOG) EVERY 4 HOURS SUBQ 02/08/19 21:00 03/10/19 06:29 02/09/19 05:09 Insulin Detemir (Levemir) 25 units BEDTIME SUBQ 02/08/19 21:00 03/10/19 20:59 02/08/19 21:30 Lisinopril (Prinivil) 40 mg DAILY ORAL 02/09/19 09:00 03/10/19 08:59 Lorazepam (Ativan 2mg/ml 1ml) 1 mg Q2H PRN IV For Anxiety 02/08/19 17:15 02/15/19 17:14 02/08/19 17:42 Methylprednisolone Sodium Succinate (Solu-MEDROL) 40 mg EVERY 8 HOURS IVP 02/08/19 22:00 03/10/19 21:59 02/09/19 05:07 Metoprolol Succinate (Toprol XL) 200 mg DAILY ORAL 02/09/19 09:00 03/10/19 08:59 Pantoprazole (Protonix) 40 mg DAILY IVP 02/08/19 20:45 03/10/19 20:44 02/08/19 21:27 Garett Shay MD Feb 09, 2019 07:24
[2019-02-09 07:25] LABS: ALANINE AMINOTRANSFERASE 14 U/L (12-78); ALBUMIN 2.9 G/DL (3.4-5.0); ALBUMIN/GLOBULIN RATIO 0.6 (1.0-2.7); ALKALINE PHOSPHATASE 130 U/L (46-116); ANION GAP 8 mmol/L (5-15); ASPARTATE AMINO TRANSFERASE 18 U/L (15-37); BILIRUBIN,TOTAL 0.6 MG/DL (0.2-1.0); BLOOD UREA NITROGEN 43 mg/dL (7-18); CALCIUM 9.5 MG/DL (8.5-10.1); CARBON DIOXIDE 35 MMOL/L (21-32); CHLORIDE 101 MMOL/L (98-107); CHOLESTEROL 131 MG/DL (< 200); HDL CHOLESTEROL 40 MG/DL (40-60); POTASSIUM 3.6 MMOL/L (3.5-5.1); SODIUM 144 MMOL/L (136-145); TRIGLYCERIDES 104 MG/DL (30-150)
--- NOTE | 2019-02-09 07:30 | NUR ---
HAND-OFF: Report given to ANDREW Mccurdy.
--- NOTE | 2019-02-09 07:31 | NUR ---
NURSE NOTES: Received patient from ANDREW Parisi. Patient restless and throwing right leg off the bed. Patient pulled up and repositioned at this time. Patient does not have her eyes open at this time. Patient's eyes were cleaned and oral care provided. Heart rate 120, blood pressure 101/57, temp 99.2, SpO2 100%, RR 20. Patient's eyes PERRLA bilaterally. Patient does not respond to voice at this time. Patient sleeping. Patient withdraws to pain. Patient's feet 4/5 strength. right arm 4/5 strength and left arm 3/5 strength. Patient has endotracheal tube with 20cm at the lip line. Patient ventilator set at assist/control 20, tidal volume 500, FiO2 40%, and PEEP 5. Patient tolerating setting with oxygen saturation 99%. Patient has a right nares NGT that is patent and verified with aspiration and auscultation at this time. Patient NPO awaiting nutritional consult. Patient has abnormal ABG results this morning. Will notify Dr Brink. Patient skin intact at this time. Patient has a right antecubital 20 gauge peripheral IV and a left antecubital 18 gauge IV. Both are patent, asymptomatic, and saline locked at this time. skin intact. Patient received 2g Magnesium yesterday for low serum magnesium. No repeat lab drawn this morning. Patient showing sinus tachycardia on the monitor with occasional runs of PVCs and atrial pacing. Patient showing no sign of acute distress. Patient has an order for venous duplex today. Will follow up with radiology. Bed in low position with bed alarm on and call light in reach at this time.
--- NOTE | 2019-02-09 08:09 | NUR ---
NURSE NOTES: Notified Dr Brink over the phone regarding ABG results of pH 7.686, pCO2 27.4, PO2 121.1, HCO3 32.1, O2 98.6, and base excess 12. He reported that Dr Sandoval is covering for him today and ordered change of ventilator setting to IMV/SIMV 12 with tidal volume 400.
--- NOTE | 2019-02-09 08:15 | NUR ---
NURSE NOTES: Called Dr Martínez and was connected with Dr Valdez through their emergency line as he is the doctor operations lieutenant. I reported that I was attempting to talk to Dr Martínez and he reported that he is not covering for Dr Martínez with this patient. I reported the troponin of 0.[address] Valdez and he said that he would pass the message on to Dr Martínez.
[2019-02-09] MEDS: Eliquis 5mg tablet ORAL SCH ×2 (08:47→18:35)
[2019-02-09] MEDS: Aspirin Baby 81mg ORAL SCH (08:47)
[2019-02-09] MEDS: Levemir Flexpen SUBQ SCH ×2 (08:57→18:40)
[2019-02-09] MEDS ORDERED: Pantoprazole Inj IVP SCH (09:00)
[2019-02-09] MEDS ORDERED: Metoprolol Succinate XL 100mg tab ORAL SCH (09:00)
[2019-02-09] MEDS ORDERED: Lisinopril 20mg tab ORAL SCH (09:00)
--- NOTE | 2019-02-09 09:00 | NUR ---
NURSE NOTES: Unable to give metoprolol this morning. This medication cannot be crushed in the form that has been ordered. Will notify Dr Martínez when he rounds on the patient.
[2019-02-09] MEDS: Pantoprazole Inj IVP SCH (10:23)
--- NOTE | 2019-02-09 10:46 | NUR ---
NURSE NOTES: Called Dr Sandoval and notified her of ABG result this morning. Dr Brink did not order pressure support setting for SIMV of 12 and tidal volume [address] Sandoval ordered for ventilator setting of SIMV 12, TV 400, and pressure support 12. Order placed at this time.
--- NOTE | 2019-02-09 12:00 | NUR ---
NURSE NOTES: Patient continues to be restless and throwing right leg off the bed. Patient pulled up and repositioned at this time. Patient has eyes open and is communicating with her family at this time. She is asking for water. It has been explained to her that she is not able to have anything by mouth at this time. Patient responds to questions with nodding head for yes and shaking head for no. Patient follows commands. Oral care provided. Heart rate 121, blood pressure 130/66, temp 100.6, SpO2 100%, RR 21. Patient's eyes PERRLA bilaterally. Patient withdraws to pain. Patient's feet 4/5 strength. right arm 4/5 strength and left arm 3/5 strength. Patient ventilator set at SIMV 12, tidal volume 400, FiO2 40%, and pressure support 12. Patient tolerating setting with oxygen saturation 100%. Patient right nares NGT that is patent and verified with aspiration and auscultation at this time. Dr Brink and Dr Sandoval are aware of the ABG result. Right antecubital 20 gauge peripheral IV and a left antecubital 18 gauge IV patent, asymptomatic, and saline locked at this time. skin intact. Patient showing sinus tachycardia on the monitor with occasional runs of PVCs and atrial pacing. Patient had a run of ventricular tachycardia at 1029. Dr Martínez called, message left, awaiting call back regarding V tach and elevated serum troponin value of 0.07. Patient showing no sign of acute distress. Bed in low position with bed alarm on and call light in reach at this time. Addendum: 02/09/19 at 1911 by Calli Esqueda RN Capnography shows 27mmHg CO2
[2019-02-09] MEDS ORDERED: Acetaminophen 650mg/20.3ml NG PRN (12:45)
--- NOTE | 2019-02-09 13:38 | NUR ---
NURSE NOTES: Noted troponin value of 0.147 which is higher than the previous value of 0.070 this morning. Left message for Dr Martínez on his emergency line. Patient continues to have small runs of V. tach. aware.
--- NOTE | 2019-02-09 15:43 | NUR ---
CASE MANAGEMENT: REVIEW 02/09/2019 SI: CHF. UNCONTROLLED DM T 99.1 HR 106 RR 20 B/P 118/57 SATS 99% ON MECH VENT FIO2 40 WBC 13.1 CO2 37 BUN 43 CR 2 GLU 246 ALP 130 TROPONIN 0.070 ABGs pH 7.686 pCO2 27.4 pO2 121.1 HCO3 32.1 BE 12 IS: INSULIN ASPART SUBQ Q4H HYDRALAZINE PO Q8H SOLU MEDROL IV Q8H LASIX IV Q8H LIPITOR PO QHS ELIQUIS PO BID LEVEMIR SUBQ BID ASA PO QD PLAVIX PO QD LISINOPRIL PO QD PROTONIX IV QD NORVASC PO QD : ICU STATUS
[2019-02-09] MEDS ORDERED: NS 275ml ONE (15:52)
--- NOTE | 2019-02-09 16:00 | NUR ---
NURSE NOTES: Patient continues to be restless and throwing right leg off the bed. Family reports that the patient is complaining of sacral pain. Patient pulled up, cleaned, and repositioned at this time with pillows under both sides. Patient reports that she is comfortable. Patient follows commands and continues to answer yes and no questions. Oral care provided. Heart rate 113, blood pressure 130/68, temp 99.6, SpO2 100%, RR 20. Patient's eyes PERRLA bilaterally. Patient withdraws to pain. Patient's feet 4/5 strength. right arm 4/5 strength and left arm 3/5 strength. Patient ventilator set at SIMV 12, tidal volume 400, FiO2 40%, and pressure support 12. Patient tolerating setting with oxygen saturation 100% and RR 20. Patient right nares NGT that is patent and verified with aspiration and auscultation at this time. Dr Brink and Dr Sandoval are aware of the ABG result. Right antecubital 20 gauge peripheral IV and a left antecubital 18 gauge IV patent, asymptomatic, and saline locked at this time. skin intact. Patient showing sinus tachycardia on the monitor with occasional runs of PVCs and atrial pacing. Awaiting call back from Dr Martínez regarding elevated troponin value. Patient showing no sign of acute distress. Bed in low position with bed alarm on and call light in reach at this time. Addendum: 02/09/19 at 1910 by Calli Esqueda RN Capnography shows 42mmHg CO2
--- NOTE | 2019-02-09 18:21 | NUR ---
NURSE NOTES: Awaiting for Dr Martínez to assess patient bedside. LM on MD emergency line regarding the metoprolol succinate extended release tablet that was not given because it could not be crushed and patient had an episode of 5 beats of V tach which occurred at 1029 this morning. Will endorse to the PM RN to show the EKG strip to MD when he arrives this evening and to get new order for med that is not extended release.
[2019-02-09] MEDS: Metoprolol Tartrate 50mg tab ORAL SCH ×2 (18:40→23:32)
--- NOTE | 2019-02-09 19:05 | NUR ---
NURSE NOTES: Patient's urine output has steadily declined throughout the day. Bladder scan done with only 14mL residual. LM for Dr Sandoval. Awaiting call back. Addendum: 02/09/19 at 1928 by Calli Esqueda RN Patient cleaned, repositioned, and oral care provided at this time. Patient denies pain and showing no sign of acute distress. HR 108, BP 129/58, SpO2 99%, and RR 19. Capnography shows 47mmHg CO2.
--- NOTE | 2019-02-09 19:22 | NUR ---
HAND-OFF: Report given to ANDREW Ch. Dr Sandoval notifed regarding low urine output. Dr Martínez notified regarding episode of 5 beats of V tach and elevated troponin. Endorsed to follow up.
--- NOTE | 2019-02-09 20:00 | NUR ---
NURSE NOTES: Received patient from Dheeraj Mccurdy RN. Patient reports that she is comfortable. Patient follows commands and able to answer yes and no questions. Oral care provided. Heart rate 83, blood pressure 129/76, temp 99.2, SpO2 100%, RR 20. Patient's eyes PERRLA bilaterally. Patient withdraws to pain. Patient's feet 4/5 strength. right arm 4/5 strength and left arm 3/5 strength. Patient ventilator set at SIMV 12, tidal volume 400, FiO2 40%, and pressure support 12. Patient tolerating setting with oxygen saturation 100% and RR 20. Patient right nares NGT that is patent and verified with aspiration and auscultation at this time. Right antecubital 20 gauge peripheral IV and a left antecubital 18 gauge IV patent, asymptomatic, and saline locked at this time. skin intact, safety measures are in place. Family at bedside. Will continue to monitor.
--- NOTE | 2019-02-09 21:00 | NUR ---
NURSE NOTES: Glucose noted to be 190, NovoLog coverage provided. Scheduled PM meds given. NAD at this time. Will continue to monitor.
[2019-02-09] MEDS: Atorvastatin 80mg tab ORAL SCH (21:06)
--- NOTE | 2019-02-09 21:24 | Pulmonolgy Critical Care Note ---
Critical Care - Asmt/Plan Assessment/Plan: 1. Congestive heart failure. 2. Diabetes, out of control. 3. 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 4. COPD. 5. Sleep apnea. 6. Atrial fibrillation, not on anticoagulants. 7. Coronary heart disease. 8. Aortic atherosclerosis. PLAN: weaning protocol to start in am abx nebs rate control wound care avoid narcotics cxr and labs in the am trending trops as well Respiratory: CXR, ABG, weaning trial Cardiac: continue to monitor HR/BP Infectious Disease: check cultures, continue antibiotics Gastrointestinal: continue feedings/current rate Prophylaxis: Protonix Disposition: keep in ICU Time Spent (Minutes): 40 Notes Reviewed: weblogic administrator Discussed with: nurses Critical Care - Objective Last 24 Hour Vital Signs Date Time Temp Pulse Resp B/P (MAP) Pulse Ox O2 Delivery O2 Flow Rate FiO2 02/09/19 21:06 130/72 02/09/19 20:00 40 02/09/19 20:00 99.3 81 21 124/75 (91) 100 02/09/19 20:00 Mechanical Ventilator 02/09/19 20:00 82 02/09/19 19:41 85 16 100 Mechanical Ventilator 40 02/09/19 19:33 81 16 40 02/09/19 19:31 84 16 100 Mechanical Ventilator 40 02/09/19 19:00 84 19 129/76 (93) 100 02/09/19 18:40 113 129/58 02/09/19 18:00 107 24 129/58 (81) 99 02/09/19 17:00 110 19 130/58 (82) 99 02/09/19 16:51 126 20 40 02/09/19 16:00 112 02/09/19 16:00 40 02/09/19 16:00 110 20 130/68 (88) 99 02/09/19 16:00 99.6 110 20 130/68 (88) 99 02/09/19 16:00 Mechanical Ventilator 02/09/19 15:00 110 20 125/59 (81) 99 02/09/19 14:49 128 20 40 02/09/19 14:10 118/57 02/09/19 14:00 99.1 106 20 118/57 (77) 99 02/09/19 13:33 99.1 02/09/19 13:21 122 20 40 02/09/19 13:21 122 20 100 Mechanical Ventilator 40 02/09/19 13:21 40 02/09/19 13:00 120 20 123/64 (83) 100 02/09/19 12:00 40 02/09/19 12:00 120 02/09/19 12:00 100.6 121 19 130/66 (87) 100 02/09/19 12:00 Mechanical Ventilator 02/09/19 11:01 120 20 40 02/09/19 11:00 119 18 129/67 (87) 100 02/09/19 10:00 119 20 122/57 (78) 100 02/09/19 09:20 123 20 40 02/09/19 09:00 118 20 133/68 (89) 100 02/09/19 08:48 119 131/72 02/09/19 08:48 120 131/72 02/09/19 08:47 131/72 02/09/19 08:00 120 02/09/19 08:00 99.2 120 20 120/71 (87) 100 02/09/19 08:00 Mechanical Ventilator 02/09/19 08:00 40 02/09/19 07:00 120 20 101/57 (72) 100 02/09/19 06:55 124 20 100 Mechanical Ventilator 40 02/09/19 06:55 124 20 40 02/09/19 06:55 40 02/09/19 06:00 115 20 104/68 (80) 100 02/09/19 05:57 104/68 02/09/19 05:13 120 20 40 02/09/19 05:00 121 20 105/61 (76) 100 02/09/19 04:00 99.1 120 20 93/58 (70) 100 02/09/19 04:00 40 02/09/19 04:00 124 02/09/19 04:00 Mechanical Ventilator 02/09/19 03:03 120 20 40 02/09/19 03:00 121 20 130/60 (83) 100 02/09/19 02:00 123 20 127/62 (83) 100 02/09/19 01:20 120 20 100 Mechanical Ventilator 40 02/09/19 01:10 118 20 100 Mechanical Ventilator 40 02/09/19 01:09 118 20 40 02/09/19 01:00 120 20 106/58 (74) 99 02/09/19 00:00 Mechanical Ventilator 02/09/19 00:00 99.0 122 20 118/63 (81) 99 02/09/19 00:00 40 02/09/19 00:00 122 02/08/19 23:00 123 20 105/57 (73) 100 02/08/19 23:00 126 20 40 02/08/19 22:20 126/64 02/08/19 22:00 121 20 124/65 (84) 100 Status: awake Condition: critical, improving Lungs: rhonchi Heart: HR/BP stable Abdomen: soft, non-tender Extremities: edema Micro: Microbiology Date/Time Source Procedure Growth Status 02/08/19 16:20 Sputum Gram Stain - Final Resulted 02/08/19 16:20 Sputum Sputum Culture Pending Resulted 02/07/19 23:30 Urine,Clean Catch Urine Culture - Preliminary Gram Negative Yusuf Resulted 02/08/19 04:30 Rectum Received Accucheck: 190 Critical Care - Subjective ROS Limited/Unobtainable: Yes Condition: critical FI02: 40 Vent Support Breath Rate: 12 Vent Support Mode: IMV/SIMV Vent Tidal Volume: 400 Sputum Amount: Small PEEP: 5.0 PIP: 28 I&O: Intake and Output 02/08/19 02/09/19 19:00 07:00 Intake Total 200 ml Output Total 495 ml 350 ml Balance -495 ml -150 ml Intake IV Total 200 ml Output Urine Total 495 ml 350 ml Subjective: more awwake ddoing well on current imv settings positive uop no cp nv or bleeding toelrating tf ET-Tube: 7.5 ET Position: 20 Labs: Current Medications Medications (Trade) Dose Ordered Sig/Willy Route PRN Reason Start Time Stop Time Status Last Admin Dose Admin Acetaminophen (Tylenol) 650 mg Q6H PRN NG Mild Pain/Temp > 100.5 02/09/19 12:45 03/11/19 12:44 02/09/19 13:03 Albuterol/ Ipratropium (Albuterol/ Ipratropium) 3 ml Q6HRT HHN 02/08/19 13:00 02/13/19 08:59 02/09/19 19:31 Amlodipine Besylate (Norvasc) 5 mg DAILY ORAL 02/09/19 09:00 03/11/19 08:59 02/09/19 08:48 Apixaban (Eliquis) 5 mg BID ORAL 02/08/19 18:00 03/10/19 08:59 02/09/19 18:35 Aspirin (ASA) 81 mg DAILY ORAL 02/09/19 09:00 03/10/19 08:59 02/09/19 08:47 Atorvastatin Calcium (Lipitor) 80 mg BEDTIME ORAL 02/08/19 21:00 03/10/19 20:59 02/09/19 21:06 Clopidogrel Bisulfate (Plavix) 75 mg DAILY ORAL 02/09/19 09:00 03/10/19 08:59 02/09/19 08:46 Hydralazine HCl (Apresoline) 50 mg EVERY 8 HOURS ORAL 02/08/19 14:00 03/10/19 05:59 02/09/19 21:06 Insulin Aspart (NovoLOG) EVERY 4 HOURS SUBQ 02/08/19 21:00 03/10/19 06:29 02/09/19 21:07 Insulin Detemir (Levemir) 16 units BID SUBQ 02/09/19 09:00 03/10/19 20:59 02/09/19 18:40 Lorazepam (Ativan 2mg/ml 1ml) 1 mg Q2H PRN IV For Anxiety 02/08/19 17:15 02/15/19 17:14 02/08/19 17:42 Methylprednisolone Sodium Succinate (Solu-MEDROL) 40 mg DAILY IVP 02/10/19 09:00 03/12/19 08:59 Metoprolol Tartrate (Lopressor) 50 mg Q6HR ORAL 02/09/19 18:30 03/11/19 18:29 02/09/19 18:40 Pantoprazole (Protonix) 40 mg DAILY IVP 02/08/19 20:45 03/10/19 20:44 02/09/19 10:23 Laboratory Tests Test 02/08/19 21:40 02/09/19 06:30 02/09/19 06:53 02/09/19 11:45 Sodium Level 144 MMOL/L (136-145) 144 MMOL/L (136-145) Potassium Level 3.8 MMOL/L (3.5-5.1) 3.6 MMOL/L (3.5-5.1) Chloride Level 100 MMOL/L (98-107) 101 MMOL/L (98-107) Carbon Dioxide Level 37 MMOL/L (21-32) H 35 MMOL/L (21-32) H Anion Gap 7 mmol/L (5-15) 8 mmol/L (5-15) Blood Urea Nitrogen 34 mg/dL (7-18) H 43 mg/dL (7-18) H Creatinine 1.4 MG/DL (0.55-1.30) H 2.0 MG/DL (0.55-1.30) H Estimat Glomerular Filtration Rate mL/min (>60) mL/min (>60) Glucose Level 289 MG/DL (74-106) #H 246 MG/DL (74-106) H Calcium Level 9.7 MG/DL (8.5-10.1) 9.5 MG/DL (8.5-10.1) Magnesium Level 1.7 MG/DL (1.8-2.4) L Troponin I 0.024 ng/mL (0.000-0.056) 0.070 ng/mL (0.000-0.056) 0.147 ng/mL (0.000-0.056) Pro-B-Type Natriuretic Peptide 5724 pg/mL (0-125) H White Blood Count 13.1 K/UL (4.8-10.8) H Red Blood Count 4.39 M/UL (4.20-5.40) Hemoglobin 12.3 G/DL (12.0-16.0) Hematocrit 39.7 % (37.0-47.0) Mean Corpuscular Volume 91 FL (80-99) Mean Corpuscular Hemoglobin 28.0 PG (27.0-31.0) Mean Corpuscular Hemoglobin Concent 30.9 G/DL (32.0-36.0) L Red Cell Distribution Width 15.6 % (11.6-14.8) H Platelet Count 547 K/UL (150-450) H Mean Platelet Volume 5.4 FL (6.5-10.1) L Neutrophils (%) (Auto) % (45.0-75.0) Lymphocytes (%) (Auto) % (20.0-45.0) Monocytes (%) (Auto) % (1.0-10.0) Eosinophils (%) (Auto) % (0.0-3.0) Basophils (%) (Auto) % (0.0-2.0) Differential Total Cells Counted 100 Neutrophils % (Manual) 94 % (45-75) H Lymphocytes % (Manual) 3 % (20-45) L Monocytes % (Manual) 3 % (1-10) Eosinophils % (Manual) 0 % (0-3) Basophils % (Manual) 0 % (0-2) Band Neutrophils 0 % (0-8) Platelet Estimate Increased H Platelet Morphology Normal Hypochromasia 1+ Anisocytosis 1+ Total Bilirubin 0.6 MG/DL (0.2-1.0) Aspartate Amino Transf (AST/SGOT) 18 U/L (15-37) Alanine Aminotransferase (ALT/SGPT) 14 U/L (12-78) Alkaline Phosphatase 130 U/L (46-116) H Total Protein 7.4 G/DL (6.4-8.2) Albumin 2.9 G/DL (3.4-5.0) L Globulin 4.5 g/dL Albumin/Globulin Ratio 0.6 (1.0-2.7) L Triglycerides Level 104 MG/DL (30-150) Cholesterol Level 131 MG/DL (< 200) LDL Cholesterol 70 mg/dL (<100) HDL Cholesterol 40 MG/DL (40-60) Cholesterol/HDL Ratio 3.3 (3.3-4.4) Thyroid Stimulating Hormone (TSH) 1.989 uiU/mL (0.358-3.740) Arterial Blood pH 7.686 (7.350-7.450) Arterial Blood Partial Pressure CO2 27.4 mmHg (35.0-45.0) L Arterial Blood Partial Pressure O2 121.1 mmHg (75.0-100.0) H Arterial Blood HCO3 32.1 mmol/L (22.0-26.0) H Arterial Blood Oxygen Saturation 98.6 % (95-100) Arterial Blood Base Excess 12.0 (-2-2) *H Ector Test Positive Citlaly Sandoval DO Feb 09, 2019 21:24
--- NOTE | 2019-02-09 21:30 | NUR ---
NURSE NOTES: Dr. Sandoval came in to round on patient. placed in morning lab orders and mentioned to go ahead with CPAP weaning protocols to be done in the morning. No other new orders. Patient is awake and alert during rounding.
--- NOTE | 2019-02-09 22:00 | NUR ---
NURSE NOTES: Repositioned patient given oral care. Patient remains awake and alert at this time. 104/54, HR 84-92 Afib. 98% SpO2. Patient tolerating ventilator settings. No acute distress at this time.
[2019-02-10] VITALS (24 sets, daily range): BP systolic 99–153; BP diastolic 54–81
--- NOTE | 2019-02-10 | NUR ---
NURSE NOTES: Patient repositioned and given oral care, HR in afib controlled. Patient sleeping at this time. BP is stable. Pacer capturing. Afebrile. Patient awake upon verbal stimulus.
[2019-02-10] MEDS: NovoLOG Insulin Flexpen SUBQ SCH ×6 (00:40→21:14)
[2019-02-10] MEDS: Albuterol/Ipratropium 3ml neb HHN SCH ×4 (01:21→19:21)
--- NOTE | 2019-02-10 02:00 | NUR ---
NURSE NOTES: Repositioned patient and given oral care. Vitals remains stable, Afib, NAD. Patient sleeping at this time.
--- NOTE | 2019-02-10 02:15 | Progress Note ---
DATE: 02/09/2019 CARDIOLOGY PROGRESS NOTE SUBJECTIVE: The patient's condition remains critical. Prognosis guarded. She remains in the intensive care unit. The patient has monitored rhythm, atrial fibrillation. OBJECTIVE: VITAL SIGNS: Blood pressure 130/72, pulse 81, respiratory rate 21, temperature 99.6 max. LUNGS: Bilateral breath sounds. Scattered rhonchi and rales. HEART: Irregularly irregular rhythm. Normal S1, S2. Murmur unchanged. ABDOMEN: Soft. 1+ dependent edema. LABORATORY DATA: White count 13, hemoglobin 12.3. Sodium 144, potassium 3.6, bicarb 35, BUN 42, creatinine 2.0, glucose 246. Troponin increased to 0.147. Albumin 2.9. IMPRESSION: 1. Acute on chronic systolic and diastolic congestive heart failure. 2. Acute renal failure post diuresis. 3. Acute myocardial ischemia and possible non-ST elevation infarction. 4. Moderate protein-calorie malnutrition. 5. Respiratory failure. 6. Chronic obstructive pulmonary disease. 7. Respiratory alkalosis. PLAN: 1. Adjust vent. 2. Hold diuretics. 3. Steroid taper. 4. Bronchodilators. 5. Antimicrobials. 6. Trend troponin level. 7. Recheck chest x-ray. 8. Beta-shai therapy for rate control advanced and discussed with ICU staff. Dominic Martínze M.D. DR: MAIRA ELENA JOB#: [id number] CC:
--- NOTE | 2019-02-10 04:00 | NUR ---
NURSE NOTES: Repositioned and given sponge bath. Patient remains alert and oriented. Vitals stable, afebrile.
[2019-02-10] MEDS: HydrALAZINE 50mg tab ORAL SCH ×3 (05:00→21:48)
[2019-02-10] MEDS: Metoprolol Tartrate 50mg tab ORAL SCH ×4 (05:00→23:57)
--- NOTE | 2019-02-10 06:00 | NUR ---
NURSE NOTES: No acute changes overnight. Patient remains alert and oriented. VSS. Afebrile. Repositioned patient, NGT flushed.
[2019-02-10 06:02] LABS: HEMATOCRIT 41.6 % (37.0-47.0); HEMOGLOBIN 13.1 G/DL (12.0-16.0); MEAN CORPUSCULAR VOLUME 88 FL (80-99); PLATELET COUNT 571 K/UL (150-450); RED BLOOD COUNT 4.74 M/UL (4.20-5.40); RED CELL DISTRIBUTION WIDTH 15.2 % (11.6-14.8); WHITE BLOOD COUNT 21.5 K/UL (4.8-10.8)
--- NOTE | 2019-02-10 07:10 | NUR ---
HAND-OFF: Report given to Dheeraj Mccurdy.
--- NOTE | 2019-02-10 07:11 | NUR ---
NURSE NOTES: Received patient from ANDREW Ch. Patient reported to be alert and oriented times 4, able to follow commands, and primarily [place] speaking. Patient sleeping at this time. Heart rate 80 with some PVCs, blood pressure 125/64, SpO2 100%, RR 19. Capnography showing 45mmHg CO2 on the monitor. Patient's eyes PERRLA bilaterally. Patient withdraws to pain. Patient's feet 4/5 strength. right arm 4/5 strength and left arm 3/5 strength. Patient has endotracheal tube with 20cm at the lip line. Patient on CPAP . Patient tolerating setting with oxygen saturation 99%. Patient has a right nares NGT that is patent and verified with aspiration and auscultation at this time. Patient remains NPO awaiting nutritional consult. Will notify Dr Sandoval. Patient skin intact at this time. Patient has a right antecubital 20 gauge peripheral IV and a left antecubital 18 gauge IV. Both are patent, asymptomatic, and saline locked at this time. skin intact. Patient has high WBC 21.5 this morning and low potassium 3.4 this morning. Will notify Dr Sandoval. Patient has 0.194 serum troponin value this morning. This is elevated from 0.147 yesterday. Patient showing abnormal rhythm on the monitor and the pacer is not capturing. Will perform EKG and notify MD. Patient showing no sign of acute distress. Bed in low position with bed alarm on and call light in reach at this time.
[2019-02-10 07:19] LABS: ALANINE AMINOTRANSFERASE 13 U/L (12-78); ALBUMIN 2.9 G/DL (3.4-5.0); ALBUMIN/GLOBULIN RATIO 0.6 (1.0-2.7); ALKALINE PHOSPHATASE 127 U/L (46-116); ANION GAP 12 mmol/L (5-15); ASPARTATE AMINO TRANSFERASE 22 U/L (15-37); BILIRUBIN,TOTAL 0.5 MG/DL (0.2-1.0); BLOOD UREA NITROGEN 67 mg/dL (7-18); CALCIUM 9.7 MG/DL (8.5-10.1); CARBON DIOXIDE 35 MMOL/L (21-32); CHLORIDE 96 MMOL/L (98-107); CREATININE 2.9 MG/DL (0.55-1.30); POTASSIUM 3.4 MMOL/L (3.5-5.1); SODIUM 143 MMOL/L (136-145)
--- NOTE | 2019-02-10 07:50 | NUR ---
NURSE NOTES: Patient showed a brief episode of atrial fibrillation on the public records officer at this time. Will perform 12 lead ECG and notify MD of result.
--- NOTE | 2019-02-10 07:57 | NUR ---
RESPIRATORY NOTE: Endorsed to RN Calli that I was unsuccessful in drawing the AM ABG from pt. Rn suggest pt may be dehydrated & states she will discuss with MD for solution. Will continue to monitor.
--- NOTE | 2019-02-10 07:59 | NUR ---
NURSE NOTES: Respiratory therapist Quintin unable to obtain ABG due presumably to dehydration. Left message on Dr Sandoval's emergency line regarding inability to obtain ABG, WBC count of 21.5 and serum potassium of 3.4. Recommended IV fluid therapy for this patient. Awaiting call back and orders.
--- NOTE | 2019-02-10 08:30 | NUR ---
NURSE NOTES: Dr Sandoval ordered chest x-ray, blood culture, urine culture, sputum culture, tube feeding of Glucerna 1.2 at 60mL/hr, and nutritional consult using TO/RB. Orders placed at this time.
[2019-02-10 08:48] LABS: HEMATOCRIT 41.3 % (37.0-47.0); HEMOGLOBIN 13.1 G/DL (12.0-16.0); MEAN CORPUSCULAR VOLUME 88 FL (80-99); PLATELET COUNT 629 K/UL (150-450); RED BLOOD COUNT 4.69 M/UL (4.20-5.40); RED CELL DISTRIBUTION WIDTH 15.5 % (11.6-14.8); WHITE BLOOD COUNT 21.9 K/UL (4.8-10.8)
[2019-02-10 08:55] LABS: ANION GAP 2 mmol/L (5-15); BLOOD UREA NITROGEN 70 mg/dL (7-18); CALCIUM 9.3 MG/DL (8.5-10.1); CARBON DIOXIDE 38 MMOL/L (21-32); CHLORIDE 101 MMOL/L (98-107); CREATININE 2.8 MG/DL (0.55-1.30); POTASSIUM 3.5 MMOL/L (3.5-5.1); SODIUM 141 MMOL/L (136-145)
--- NOTE | 2019-02-10 09:09 | NUR ---
RESPIRATORY NOTE: Re-attempt abg draw, unsuccessful. Rn & Md aware. will continue to monitor.
[2019-02-10] MEDS: Solu-MEDROL 40mg Inj IVP SCH (09:25)
[2019-02-10] MEDS: Pantoprazole Inj IVP SCH (09:25)
[2019-02-10] MEDS: Aspirin Baby 81mg ORAL SCH (09:26)
[2019-02-10] MEDS: Eliquis 5mg tablet ORAL SCH ×2 (09:26→17:48)
[2019-02-10] MEDS: Levemir Flexpen SUBQ SCH ×2 (09:34→18:01)
--- NOTE | 2019-02-10 10:09 | Diagnostic Imaging Report ---
EXAM: XR Chest, 1 View CLINICAL HISTORY: CONSTIPATION TECHNIQUE: Frontal view of the chest. COMPARISON: Chest x-ray dated 02/08/19 FINDINGS: Lungs: Subsegmental atelectasis in the left lung base, unchanged. Pleural space: Unremarkable. The costophrenic angles are sharp. No visible pneumothorax. Heart: Cardiomegaly, unchanged. Mediastinum: Unremarkable. Bones/joints: Unremarkable. Tubes, lines and devices: Stable positioning of endotracheal tube. NG tube extends below the diaphragm and its tip is not visualized. Cardiac pacer in the left chest wall with the lead tips in the right atrium and right ventricle regions. Telemetry leads overlie the thorax. IMPRESSION: No significant interval change from the prior chest x-ray.
--- NOTE | 2019-02-10 12:00 | NUR ---
NURSE NOTES: Patient reported to be alert and oriented times 4, able to follow commands. Patient awake and oriented. Family at the bedside speaking with patient. Heart rate 92 in atrial fibrillation with A-pacing, blood pressure 126/61, SpO2 99%, RR 17. Capnography showing 44mmHg CO2 on the monitor. Patient's eyes PERRLA bilaterally. Patient's feet 5/5 strength. right arm 5/5 strength and left arm 4/5 strength. Patient has endotracheal tube with 20cm at the lip line. Patient on CPAP wit pressure support 12. Patient tolerating setting with oxygen saturation 99%. Patient has a right nares NGT that is patent and verified with aspiration and auscultation at this time. Patient will be started on tube feeding Glucerna 1.2 at 60mL/hr per Dr Sandoval. Patient skin intact. Patient has a right antecubital 20 gauge peripheral IV and a left antecubital 18 gauge IV. Both are patent, asymptomatic, and saline locked at this time. Patient has high WBC 21.5 this morning. ID doctor consulted. Will notify Dr Sandoval. Repeat troponin trending down. Patient showing no sign of acute distress. Bed in low position with bed alarm on and call light in reach at this time. Addendum: 02/10/19 at 2000 by Calli Esqueda RN Oral care and repositioning performed.
--- NOTE | 2019-02-10 12:35 | NUR ---
NURSE NOTES: Dietitian called with a recommendation for tube feeding. Recommendation is for Glucerna 1.5 at 40mL/hr. Will change order at this time.
--- NOTE | 2019-02-10 12:36 | NUR ---
RD ASSESSMENT & RECOMMENDATIONS SEE CARE ACTIVITY FOR COMPLETE ASSESSMENT DAILY ESTIMATED NEEDS: Needs based on Critcal care, pulmonary, DM 58.9kg adj 22-28 kcals/kg [id number] total kcals 1.2-2 g protein/kg 71-118 g total protein Fluid per MD, on lasix NUTRITION DIAGNOSIS: 1) Swallowing difficulty r/t respiratory distress as evidenced by s/p intubation, now on NGT feeds. 2) Altered nutrition related lab values r/t clinical status as evidenced by elev WBC (21.9), elev pH (7.686), elev BUN (70), elev Creat (2.8), elev BG on adm now improved (424->151), elev BNP (4990) (CURRENT TF: Glucerna 1.2 @60 ml) PO DIET RECOMMENDATIONS: IN FLIGHT REFUELING MANAGER eval upon extubation ENTERAL NUTRITION RECOMMENDATIONS-->> TF change to Glucerna 1.5 @40ml/hr x24 hrs to provide 960ml, 1440 kcal, 79g pro, 729ml free H2O - Rec TF change for less free fluid (h/o CHF, currently edematous w/ elev BNP). - Start Glucerna 1.5 @20ml/hr for 6 hrs. Advance as tolerated 10ml/hr q4-6 hrs to goal. - Flush per MD/ HOB over 30 degrees. ---- ADDITIONAL RECOMMENDATIONS: 1) NGT recs as above 2) Monitor lytes, BG daily (on NGT feeds + lasix + solumedrol) 3) On lasix, daily calibrated bed scale wts for accuracy 4) IN FLIGHT REFUELING MANAGER eval upon extubation for appropriate texture 5) Monitor tolerance to TF
--- NOTE | 2019-02-10 13:20 | General Progress Note ---
Assessment/Plan Problem List: (1) Bacteriuria ICD Codes: R82.71 - Bacteriuria SNOMED: 94775160 (2) Uncontrolled diabetes mellitus ICD Codes: E11.65 - Type 2 diabetes mellitus with hyperglycemia SNOMED: 84672752, [id number] Qualifiers: Qualified Codes: E11.65 - Type 2 diabetes mellitus with hyperglycemia (3) Acute exacerbation of CHF (congestive heart failure) ICD Codes: I50.9 - Heart failure, unspecified SNOMED: 524178215, [id number] Qualifiers: Qualified Codes: I50.9 - Heart failure, unspecified Assessment/Plan: continue Levemir to 16 units bid continue NISS every 4 hours Subjective ROS Limited/Unobtainable: Yes Allergies: Coded Allergies: SULFA (SULFONAMIDE ANTIBIOTICS) (Unverified Allergy, Unknown, 02/08/19) Uncoded Allergies: SULFA (Allergy, Unknown, 02/07/19) Subjective events noted intubated - awake on TF glucose in fair control Item Value Date Time Bedside Blood Glucose 141 mg/dl H 02/10/19 1312 Bedside Blood Glucose 130 mg/dl H 02/10/19 0934 Bedside Blood Glucose 141 mg/dl H 02/10/19 0501 Bedside Blood Glucose 135 mg/dl H 02/10/19 0040 Bedside Blood Glucose 190 mg/dl H 02/09/19 2107 Bedside Blood Glucose 193 mg/dl H 02/09/19 1841 Objective Last 24 Hour Vital Signs Date Time Temp Pulse Resp B/P (MAP) Pulse Ox O2 Delivery O2 Flow Rate FiO2 02/10/19 13:16 97 17 40 02/10/19 13:07 97 131/64 02/10/19 11:25 90 14 40 02/10/19 10:00 84 13 146/79 (101) 99 02/10/19 09:26 89 153/81 02/10/19 09:01 84 14 40 02/10/19 09:00 87 20 153/81 (105) 100 02/10/19 08:00 85 02/10/19 08:00 98.6 86 18 141/68 (92) 100 02/10/19 08:00 40 02/10/19 08:00 Mechanical Ventilator 02/10/19 07:00 85 18 125/64 (84) 100 02/10/19 06:40 100 02/10/19 06:35 74 12 100 Mechanical Ventilator 40 02/10/19 06:30 83 14 40 02/10/19 06:25 84 14 100 Mechanical Ventilator 40 02/10/19 06:00 80 16 134/69 (90) 100 02/10/19 05:08 88 12 40 02/10/19 05:00 89 125/62 02/10/19 05:00 125/62 02/10/19 05:00 93 16 150/62 (91) 100 02/10/19 04:00 88 02/10/19 04:00 Mechanical Ventilator 02/10/19 04:00 99.0 87 16 122/60 (80) 100 02/10/19 04:00 40 02/10/19 03:01 89 14 40 02/10/19 03:00 82 18 125/62 (83) 100 02/10/19 02:00 81 12 99/57 (71) 99 02/10/19 01:29 76 12 100 Mechanical Ventilator 40 02/10/19 01:22 75 12 40 02/10/19 01:21 83 12 100 Mechanical Ventilator 40 02/10/19 01:00 80 12 118/63 (81) 100 02/10/19 00:00 98.3 78 20 119/61 (80) 100 02/10/19 00:00 40 02/10/19 00:00 65 02/10/19 00:00 Mechanical Ventilator 02/09/19 23:32 91 113/59 02/09/19 23:29 83 16 40 02/09/19 23:00 92 15 113/59 (77) 100 02/09/19 22:00 90 16 104/54 (71) 100 02/09/19 21:25 82 18 40 02/09/19 21:06 130/72 02/09/19 21:00 83 17 130/72 (91) 100 02/09/19 20:00 40 02/09/19 20:00 99.3 81 21 124/75 (91) 100 02/09/19 20:00 Mechanical Ventilator 02/09/19 20:00 82 02/09/19 19:41 85 16 100 Mechanical Ventilator 40 02/09/19 19:33 81 16 40 02/09/19 19:31 84 16 100 Mechanical Ventilator 40 02/09/19 19:00 84 19 129/76 (93) 100 02/09/19 18:40 113 129/58 02/09/19 18:00 107 24 129/58 (81) 99 02/09/19 17:00 110 19 130/58 (82) 99 02/09/19 16:51 126 20 40 02/09/19 16:00 112 02/09/19 16:00 40 02/09/19 16:00 110 20 130/68 (88) 99 02/09/19 16:00 99.6 110 20 130/68 (88) 99 02/09/19 16:00 Mechanical Ventilator 02/09/19 15:00 110 20 125/59 (81) 99 02/09/19 14:49 128 20 40 02/09/19 14:10 118/57 02/09/19 14:00 99.1 106 20 118/57 (77) 99 02/09/19 13:33 99.1 02/09/19 13:21 122 20 40 02/09/19 13:21 122 20 100 Mechanical Ventilator 40 02/09/19 13:21 40 Intake and Output 02/09/19 02/10/19 18:59 06:59 Output Total 190 ml 190 ml Balance -190 ml -190 ml Output Urine Total 190 ml 190 ml Laboratory Tests 02/10/19 05:20: White Blood Count 21.5#H, Red Blood Count 4.74, Hemoglobin 13.1, Hematocrit 41.6 , Mean Corpuscular Volume 88, Mean Corpuscular Hemoglobin 27.7, Mean Corpuscular Hemoglobin Concent 31.5L, Red Cell Distribution Width 15.2H, Platelet Count 571H, Mean Platelet Volume 5.6L, Neutrophils (%) (Auto) , Lymphocytes (%) (Auto) , Monocytes (%) (Auto) , Eosinophils (%) (Auto) , Basophils (%) (Auto) , Differential Total Cells Counted 100, Neutrophils % ( Manual) 86H, Lymphocytes % (Manual) 7L, Monocytes % (Manual) 7, Eosinophils % ( Manual) 0, Basophils % (Manual) 0, Band Neutrophils 0, Platelet Estimate IncreasedH, Platelet Morphology Normal, Polychromasia 1+, Hypochromasia 1+, Anisocytosis 1+, Sodium Level 143, Potassium Level 3.4L, Chloride Level 96L, Carbon Dioxide Level 35H, Anion Gap 12, Blood Urea Nitrogen 67H, Creatinine 2.9H , Estimat Glomerular Filtration Rate , Glucose Level 161H, Calcium Level 9.7, Total Bilirubin 0.5, Aspartate Amino Transf (AST/SGOT) 22, Alanine Aminotransferase (ALT/SGPT) 13, Alkaline Phosphatase 127H, Troponin I 0.194H, Pro-B-Type Natriuretic Peptide 4990H, Total Protein 7.5, Albumin 2.9L, Globulin 4.6, Albumin/Globulin Ratio 0.6L 02/10/19 08:00: White Blood Count 21.9H, Red Blood Count 4.69, Hemoglobin 13.1, Hematocrit 41.3 , Mean Corpuscular Volume 88, Mean Corpuscular Hemoglobin 27.9, Mean Corpuscular Hemoglobin Concent 31.6L, Red Cell Distribution Width 15.5H, Platelet Count 629H, Mean Platelet Volume 5.4L, Neutrophils (%) (Auto) , Lymphocytes (%) (Auto) , Monocytes (%) (Auto) , Eosinophils (%) (Auto) , Basophils (%) (Auto) , Differential Total Cells Counted 100, Neutrophils % ( Manual) 82H, Lymphocytes % (Manual) 8L, Monocytes % (Manual) 10, Eosinophils % ( Manual) 0, Basophils % (Manual) 0, Band Neutrophils 0, Platelet Estimate IncreasedH, Platelet Morphology Normal, Polychromasia 1+, Hypochromasia 1+, Anisocytosis 1+, Sodium Level 141, Potassium Level 3.5, Chloride Level 101, Carbon Dioxide Level 38H, Anion Gap 2L, Blood Urea Nitrogen 70H, Creatinine 2.8H , Estimat Glomerular Filtration Rate , Glucose Level 151H, Calcium Level 9.3, Troponin I 0.139H, Magnesium Level 2.6H Height (Feet): 5 Height (Inches): 4.00 Weight (Pounds): 170 General Appearance: no apparent distress, other - intubated EENT: other - ETT Neck: normal alignment Cardiovascular: normal rate Respiratory/Chest: decreased breath sounds Abdomen: normal bowel sounds Edema: 1+ Arm (L), 1+ Arm (R), 1+ Leg (L), 1+ Leg (R), 1+ Pedal (L), 1+ Pedal ( R), 1+ Generalized Objective Current Medications Medications (Trade) Dose Ordered Sig/Willy Route PRN Reason Start Time Stop Time Status Last Admin Dose Admin Acetaminophen (Tylenol) 650 mg Q6H PRN NG Mild Pain/Temp > 100.5 02/09/19 12:45 03/11/19 12:44 02/09/19 13:03 Albuterol/ Ipratropium (Albuterol/ Ipratropium) 3 ml Q6HRT HHN 02/08/19 13:00 02/13/19 08:59 02/10/19 06:29 Amlodipine Besylate (Norvasc) 5 mg DAILY ORAL 02/09/19 09:00 03/11/19 08:59 02/10/19 09:26 Apixaban (Eliquis) 5 mg BID ORAL 02/08/19 18:00 03/10/19 08:59 02/10/19 09:26 Aspirin (ASA) 81 mg DAILY ORAL 02/09/19 09:00 03/10/19 08:59 02/10/19 09:26 Atorvastatin Calcium (Lipitor) 80 mg BEDTIME ORAL 02/08/19 21:00 03/10/19 20:59 02/09/19 21:06 Clopidogrel Bisulfate (Plavix) 75 mg DAILY ORAL 02/09/19 09:00 03/10/19 08:59 02/10/19 09:26 Hydralazine HCl (Apresoline) 50 mg EVERY 8 HOURS ORAL 02/08/19 14:00 03/10/19 05:59 02/10/19 05:00 Insulin Aspart (NovoLOG) EVERY 4 HOURS SUBQ 02/08/19 21:00 03/10/19 06:29 02/10/19 13:12 Insulin Detemir (Levemir) 16 units BID SUBQ 02/09/19 09:00 03/10/19 20:59 02/10/19 09:34 Lorazepam (Ativan 2mg/ml 1ml) 1 mg Q2H PRN IV For Anxiety 02/08/19 17:15 02/15/19 17:14 02/08/19 17:42 Methylprednisolone Sodium Succinate (Solu-MEDROL) 40 mg DAILY IVP 02/10/19 09:00 03/12/19 08:59 02/10/19 09:25 Metoprolol Tartrate (Lopressor) 50 mg Q6HR ORAL 02/09/19 18:30 03/11/19 18:29 02/10/19 13:07 Pantoprazole (Protonix) 40 mg DAILY IVP 02/08/19 20:45 03/10/19 20:44 02/10/19 09:25 Garett Shay MD Feb 10, 2019 13:20
--- NOTE | 2019-02-10 14:00 | NUR ---
NURSE NOTES: Blood pressure 114/63, HR 89 in atrial fibrillation with atrial pacing, SpO2 99%, RR 13. Patient showing no sign of acute distress. Repositioning done at this time.
--- NOTE | 2019-02-10 15:14 | Infectious Diseases Prog Note ---
Assessment/Plan Assessment/Plan Full consult dictated: A) 1) klebsiella uti 2) possible sepsis, leukocytosis, fevers 3) on steroids 4) sc - neg, chest x-ray without consolidation P) 1) start ceftriaxone 2) monitor labs and chest x-ray 3) thank you Subjective Constitutional: Reports: fever Allergies: Coded Allergies: SULFA (SULFONAMIDE ANTIBIOTICS) (Unverified Allergy, Unknown, 02/08/19) Uncoded Allergies: SULFA (Allergy, Unknown, 02/07/19) Objective Vital Signs Last 24 Hour Vital Signs Date Time Temp Pulse Resp B/P (MAP) Pulse Ox O2 Delivery O2 Flow Rate FiO2 02/10/19 14:36 114/63 02/10/19 13:16 97 17 40 02/10/19 13:15 88 14 100 Mechanical Ventilator 40 02/10/19 13:07 97 131/64 02/10/19 13:00 90 12 100 Mechanical Ventilator 40 02/10/19 13:00 93 18 131/64 (86) 99 02/10/19 12:00 94 16 126/61 (82) 99 02/10/19 11:25 90 14 40 02/10/19 11:00 92 17 140/71 (94) 99 02/10/19 10:00 84 13 146/79 (101) 99 02/10/19 09:26 89 153/81 02/10/19 09:01 84 14 40 02/10/19 09:00 87 20 153/81 (105) 100 02/10/19 08:00 85 02/10/19 08:00 98.6 86 18 141/68 (92) 100 02/10/19 08:00 40 02/10/19 08:00 Mechanical Ventilator 02/10/19 07:00 85 18 125/64 (84) 100 02/10/19 06:40 100 02/10/19 06:35 74 12 100 Mechanical Ventilator 40 02/10/19 06:30 83 14 40 02/10/19 06:25 84 14 100 Mechanical Ventilator 40 02/10/19 06:00 80 16 134/69 (90) 100 02/10/19 05:08 88 12 40 02/10/19 05:00 89 125/62 02/10/19 05:00 125/62 02/10/19 05:00 93 16 150/62 (91) 100 02/10/19 04:00 88 02/10/19 04:00 Mechanical Ventilator 02/10/19 04:00 99.0 87 16 122/60 (80) 100 02/10/19 04:00 40 02/10/19 03:01 89 14 40 02/10/19 03:00 82 18 125/62 (83) 100 02/10/19 02:00 81 12 99/57 (71) 99 02/10/19 01:29 76 12 100 Mechanical Ventilator 40 02/10/19 01:22 75 12 40 02/10/19 01:21 83 12 100 Mechanical Ventilator 40 02/10/19 01:00 80 12 118/63 (81) 100 02/10/19 00:00 98.3 78 20 119/61 (80) 100 02/10/19 00:00 40 02/10/19 00:00 65 02/10/19 00:00 Mechanical Ventilator 02/09/19 23:32 91 113/59 02/09/19 23:29 83 16 40 02/09/19 23:00 92 15 113/59 (77) 100 02/09/19 22:00 90 16 104/54 (71) 100 02/09/19 21:25 82 18 40 02/09/19 21:06 130/72 02/09/19 21:00 83 17 130/72 (91) 100 02/09/19 20:00 40 02/09/19 20:00 99.3 81 21 124/75 (91) 100 02/09/19 20:00 Mechanical Ventilator 02/09/19 20:00 82 02/09/19 19:41 85 16 100 Mechanical Ventilator 40 02/09/19 19:33 81 16 40 02/09/19 19:31 84 16 100 Mechanical Ventilator 40 02/09/19 19:00 84 19 129/76 (93) 100 02/09/19 18:40 113 129/58 02/09/19 18:00 107 24 129/58 (81) 99 02/09/19 17:00 110 19 130/58 (82) 99 02/09/19 16:51 126 20 40 02/09/19 16:00 112 02/09/19 16:00 40 02/09/19 16:00 110 20 130/68 (88) 99 02/09/19 16:00 99.6 110 20 130/68 (88) 99 02/09/19 16:00 Mechanical Ventilator Height (Feet): 5 Height (Inches): 4.00 Weight (Pounds): 170 Microbiology Date/Time Source Procedure Growth Status 02/08/19 16:20 Sputum Gram Stain - Final Complete 02/08/19 16:20 Sputum Sputum Culture - Final NORMAL UPPER RESPIRATORY ROHAN AT 48 ... Complete 02/08/19 04:30 Nose MRSA Culture - Final NO METHICILLIN RESISTANT STAPH AUREUS... Complete 02/07/19 23:30 Urine,Clean Catch Urine Culture - Final Klebsiella Pneumoniae Complete 02/08/19 04:30 Rectum - Final NO CARBAPENEM-RESISTANT ENTEROBACTERI... Complete 02/08/19 04:30 Rectum VRE Culture - Final NO VANCOMYCIN RESISTANT ENTEROCOCCUS ... Complete Laboratory Tests Test 02/10/19 05:20 02/10/19 08:00 02/10/19 13:21 White Blood Count 21.5 K/UL (4.8-10.8) #H 21.9 K/UL (4.8-10.8) H Red Blood Count 4.74 M/UL (4.20-5.40) 4.69 M/UL (4.20-5.40) Hemoglobin 13.1 G/DL (12.0-16.0) 13.1 G/DL (12.0-16.0) Hematocrit 41.6 % (37.0-47.0) 41.3 % (37.0-47.0) Mean Corpuscular Volume 88 FL (80-99) 88 FL (80-99) Mean Corpuscular Hemoglobin 27.7 PG (27.0-31.0) 27.9 PG (27.0-31.0) Mean Corpuscular Hemoglobin Concent 31.5 G/DL (32.0-36.0) L 31.6 G/DL (32.0-36.0) L Red Cell Distribution Width 15.2 % (11.6-14.8) H 15.5 % (11.6-14.8) H Platelet Count 571 K/UL (150-450) H 629 K/UL (150-450) H Mean Platelet Volume 5.6 FL (6.5-10.1) L 5.4 FL (6.5-10.1) L Neutrophils (%) (Auto) % (45.0-75.0) % (45.0-75.0) Lymphocytes (%) (Auto) % (20.0-45.0) % (20.0-45.0) Monocytes (%) (Auto) % (1.0-10.0) % (1.0-10.0) Eosinophils (%) (Auto) % (0.0-3.0) % (0.0-3.0) Basophils (%) (Auto) % (0.0-2.0) % (0.0-2.0) Differential Total Cells Counted 100 100 Neutrophils % (Manual) 86 % (45-75) H 82 % (45-75) H Lymphocytes % (Manual) 7 % (20-45) L 8 % (20-45) L Monocytes % (Manual) 7 % (1-10) 10 % (1-10) Eosinophils % (Manual) 0 % (0-3) 0 % (0-3) Basophils % (Manual) 0 % (0-2) 0 % (0-2) Band Neutrophils 0 % (0-8) 0 % (0-8) Platelet Estimate Increased H Increased H Platelet Morphology Normal Normal Polychromasia 1+ 1+ Hypochromasia 1+ 1+ Anisocytosis 1+ 1+ Sodium Level 143 MMOL/L (136-145) 141 MMOL/L (136-145) Potassium Level 3.4 MMOL/L (3.5-5.1) L 3.5 MMOL/L (3.5-5.1) Chloride Level 96 MMOL/L (98-107) L 101 MMOL/L (98-107) Carbon Dioxide Level 35 MMOL/L (21-32) H 38 MMOL/L (21-32) H Anion Gap 12 mmol/L (5-15) 2 mmol/L (5-15) L Blood Urea Nitrogen 67 mg/dL (7-18) H 70 mg/dL (7-18) H Creatinine 2.9 MG/DL (0.55-1.30) H 2.8 MG/DL (0.55-1.30) H Estimat Glomerular Filtration Rate mL/min (>60) mL/min (>60) Glucose Level 161 MG/DL (74-106) H 151 MG/DL (74-106) H Calcium Level 9.7 MG/DL (8.5-10.1) 9.3 MG/DL (8.5-10.1) Total Bilirubin 0.5 MG/DL (0.2-1.0) Aspartate Amino Transf (AST/SGOT) 22 U/L (15-37) Alanine Aminotransferase (ALT/SGPT) 13 U/L (12-78) Alkaline Phosphatase 127 U/L (46-116) H Troponin I 0.194 ng/mL (0.000-0.056) 0.139 ng/mL (0.000-0.056) Pro-B-Type Natriuretic Peptide 4990 pg/mL (0-125) H Total Protein 7.5 G/DL (6.4-8.2) Albumin 2.9 G/DL (3.4-5.0) L Globulin 4.6 g/dL Albumin/Globulin Ratio 0.6 (1.0-2.7) L Magnesium Level 2.6 MG/DL (1.8-2.4) H Arterial Blood pH 7.494 (7.350-7.450) Arterial Blood Partial Pressure CO2 49.6 mmHg (35.0-45.0) H Arterial Blood Partial Pressure O2 116.5 mmHg (75.0-100.0) H Arterial Blood HCO3 37.3 mmol/L (22.0-26.0) H Arterial Blood Oxygen Saturation 98.0 % (95-100) Arterial Blood Base Excess 12.3 (-2-2) *H Ector Test Positive Current Medications Medications (Trade) Dose Ordered Sig/Willy Route PRN Reason Start Time Stop Time Status Last Admin Dose Admin Acetaminophen (Tylenol) 650 mg Q6H PRN NG Mild Pain/Temp > 100.5 02/09/19 12:45 03/11/19 12:44 02/09/19 13:03 Albuterol/ Ipratropium (Albuterol/ Ipratropium) 3 ml Q6HRT HHN 02/08/19 13:00 02/13/19 08:59 02/10/19 13:39 Amlodipine Besylate (Norvasc) 5 mg DAILY ORAL 02/09/19 09:00 03/11/19 08:59 02/10/19 09:26 Apixaban (Eliquis) 5 mg BID ORAL 02/08/19 18:00 03/10/19 08:59 02/10/19 09:26 Aspirin (ASA) 81 mg DAILY ORAL 02/09/19 09:00 03/10/19 08:59 02/10/19 09:26 Atorvastatin Calcium (Lipitor) 80 mg BEDTIME ORAL 02/08/19 21:00 03/10/19 20:59 02/09/19 21:06 Clopidogrel Bisulfate (Plavix) 75 mg DAILY ORAL 02/09/19 09:00 03/10/19 08:59 02/10/19 09:26 Hydralazine HCl (Apresoline) 50 mg EVERY 8 HOURS ORAL 02/08/19 14:00 03/10/19 05:59 02/10/19 14:36 Insulin Aspart (NovoLOG) EVERY 4 HOURS SUBQ 02/08/19 21:00 03/10/19 06:29 02/10/19 13:12 Insulin Detemir (Levemir) 16 units BID SUBQ 02/09/19 09:00 03/10/19 20:59 02/10/19 09:34 Lorazepam (Ativan 2mg/ml 1ml) 1 mg Q2H PRN IV For Anxiety 02/08/19 17:15 02/15/19 17:14 02/08/19 17:42 Methylprednisolone Sodium Succinate (Solu-MEDROL) 40 mg DAILY IVP 02/10/19 09:00 03/12/19 08:59 02/10/19 09:25 Metoprolol Tartrate (Lopressor) 50 mg Q6HR ORAL 02/09/19 18:30 03/11/19 18:29 02/10/19 13:07 Pantoprazole (Protonix) 40 mg DAILY IVP 02/08/19 20:45 03/10/19 20:44 02/10/19 09:25 Jose Cutler MD Feb 10, 2019 15:14
--- NOTE | 2019-02-10 16:00 | NUR ---
NURSE NOTES: Patient reported to be alert and oriented times 4, able to follow commands. Patient awake and oriented. Family at the bedside speaking with patient. Heart rate 93 in atrial fibrillation with A-pacing, blood pressure 125/74, SpO2 100%, RR 16. Capnography showing 44mmHg CO2 on the monitor. Patient's eyes PERRLA bilaterally. Patient's feet 5/5 strength. right arm 5/5 strength and left arm 4/5 strength. Patient has endotracheal tube with 20cm at the lip line. Patient back on SIMV 12, tidal volume 400, FiO2 40%, and PEEP 5. Weaning trial successful. ABG obtained. Dr Sandoval reported that patient would not be extubated today. Patient tolerating setting with oxygen saturation 99%. Patient has a right nares NGT that is patent and verified with aspiration and auscultation at this time. Patient running tube feeding of Glucerna 1.5 at 20mL/hr with goal of 40mL/hr. Patient reported nausea when feeding increased after four hours on 20mL/hr. Will continue to monitor and increase feeding when possible. No residual noted. Patient skin intact. Patient has a right antecubital 20 gauge peripheral IV and a left antecubital 18 gauge IV. Both are patent, asymptomatic, and saline locked at this time. Patient showing no sign of acute distress. Bed in low position with bed alarm on and call light in reach at this time. Addendum: 02/10/19 at 2000 by Calli Esqueda RN Oral care and repositioning performed.
[2019-02-10] MEDS: cefTRIAXone 1 GM in D5W 50 ML IVPB SCH (17:48)
--- NOTE | 2019-02-10 18:00 | NUR ---
NURSE NOTES: Blood pressure 133/66, HR 92 in atrial fibrillation with atrial pacing, SpO2 100%, RR 18. Patient showing no sign of acute distress. Repositioning done at this time. Addendum: 02/10/19 at 2000 by Calli Esqueda RN Patient cleaned and repositioned at this time.
--- NOTE | 2019-02-10 18:04 | NUR ---
CASE MANAGEMENT: REVIEW 02/10/2019 SI: CHF. UNCONTROLLED DM T 99.1 HR 94 RR 15 B/P 125/74 SATS 100% ON MECH VENT FIO2 40 WBC 21.9 CO2 38 BUN 70 CR 2.8 GLU 151 MG 2.6 TROPONIN 0.139 ABGs PH 7.494 PCO2 49.6 PO2 116.5 HCO3 37.3 BE 12.3 IS: INSULIN ASPART SUBQ Q4H HYDRALAZINE PO Q8H SOLU MEDROL IV Q8H LASIX IV Q8H LIPITOR PO QHS ELIQUIS PO BID LEVEMIR SUBQ BID ASA PO QD PLAVIX PO QD LISINOPRIL PO QD PROTONIX IV QD NORVASC PO QD : ICU STATUS
--- NOTE | 2019-02-10 19:30 | NUR ---
HAND-OFF: Report given to ANDREW Alonzo. Patient blood pressure 109/54, HR 86, SpO2 99%, and RR 16. Patient showing no sign of acute distress.
--- NOTE | 2019-02-10 19:30 | NUR ---
NURSE NOTES:Received pt asleep, but easily arousable to tactile stimulation. Orally intubated on SIMV mode, Bilateral soft wrist restraints on for safety to avoid sadia extubation. Pt A fib rate 90s on the monitor. Pt also has a pacemaker not capturing mds were aware per RN Jeremy Esqueda. Bp stable at this time, afebrile.IVF been infusing well per left upper arm pICC line TKO nS. Site atraumatic. Pt also has Turner to gravity with lg amt of yellowish urine.Monitor I and O. Monitor lytes. NGt fdg re started at this time Glucerna 1.5 at 20ml /hr Goal 40. No nausea nor vomiting noted at this time. HOB kept elevated. On aspiration precaution. Will continue to monitor.
--- NOTE | 2019-02-10 20:12 | Pulmonolgy Critical Care Note ---
Critical Care - Asmt/Plan Assessment/Plan: 1. Congestive heart failure. 2. Diabetes, out of control. 3. 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 4. COPD. 5. Sleep apnea. 6. Atrial fibrillation, not on anticoagulants. 7. Coronary heart disease. 8. Aortic atherosclerosis. 9. 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 Discussed with: nurses Critical Care - Objective Last 24 Hour Vital Signs Date Time Temp Pulse Resp B/P (MAP) Pulse Ox O2 Delivery O2 Flow Rate FiO2 02/10/19 19:32 77 12 100 Mechanical Ventilator 40 02/10/19 19:22 82 15 40 02/10/19 19:21 81 14 100 Mechanical Ventilator 40 02/10/19 19:00 80 14 109/54 (72) 100 02/10/19 18:00 92 20 133/66 (88) 99 02/10/19 17:48 88 121/57 02/10/19 17:25 90 15 40 02/10/19 17:00 92 18 121/57 (78) 100 02/10/19 16:00 Mechanical Ventilator 02/10/19 16:00 40 02/10/19 16:00 99.1 94 15 125/74 (91) 100 02/10/19 16:00 88 02/10/19 15:29 85 14 40 02/10/19 15:00 93 17 115/59 (77) 99 02/10/19 14:36 114/63 02/10/19 14:00 98.8 88 14 114/63 (80) 99 02/10/19 13:16 97 17 40 02/10/19 13:15 88 14 100 Mechanical Ventilator 40 02/10/19 13:07 97 131/64 02/10/19 13:00 90 12 100 Mechanical Ventilator 40 02/10/19 13:00 93 18 131/64 (86) 99 02/10/19 12:00 Mechanical Ventilator 02/10/19 12:00 40 02/10/19 12:00 94 16 126/61 (82) 99 02/10/19 12:00 93 02/10/19 11:25 90 14 40 02/10/19 11:00 92 17 140/71 (94) 99 02/10/19 10:00 84 13 146/79 (101) 99 02/10/19 09:26 89 153/81 02/10/19 09:01 84 14 40 02/10/19 09:00 87 20 153/81 (105) 100 02/10/19 08:00 85 02/10/19 08:00 98.6 86 18 141/68 (92) 100 02/10/19 08:00 40 02/10/19 08:00 Mechanical Ventilator 02/10/19 07:00 85 18 125/64 (84) 100 02/10/19 06:40 100 02/10/19 06:35 74 12 100 Mechanical Ventilator 40 02/10/19 06:30 83 14 40 02/10/19 06:25 84 14 100 Mechanical Ventilator 40 02/10/19 06:00 80 16 134/69 (90) 100 02/10/19 05:08 88 12 40 02/10/19 05:00 89 125/62 02/10/19 05:00 125/62 02/10/19 05:00 93 16 150/62 (91) 100 02/10/19 04:00 88 02/10/19 04:00 Mechanical Ventilator 02/10/19 04:00 99.0 87 16 122/60 (80) 100 02/10/19 04:00 40 02/10/19 03:01 89 14 40 02/10/19 03:00 82 18 125/62 (83) 100 02/10/19 02:00 81 12 99/57 (71) 99 02/10/19 01:29 76 12 100 Mechanical Ventilator 40 02/10/19 01:22 75 12 40 02/10/19 01:21 83 12 100 Mechanical Ventilator 40 02/10/19 01:00 80 12 118/63 (81) 100 02/10/19 00:00 98.3 78 20 119/61 (80) 100 02/10/19 00:00 40 02/10/19 00:00 65 02/10/19 00:00 Mechanical Ventilator 02/09/19 23:32 91 113/59 02/09/19 23:29 83 16 40 02/09/19 23:00 92 15 113/59 (77) 100 02/09/19 22:00 90 16 104/54 (71) 100 02/09/19 21:25 82 18 40 02/09/19 21:06 130/72 02/09/19 21:00 83 17 130/72 (91) 100 Status: awake Lungs: rhonchi Heart: HR/BP stable Abdomen: soft, non-tender Extremities: edema Micro: Microbiology Date/Time Source Procedure Growth Status 02/08/19 16:20 Sputum Gram Stain - Final Complete 02/08/19 16:20 Sputum Sputum Culture - Final NORMAL UPPER RESPIRATORY ROHAN AT 48 ... Complete 02/08/19 04:30 Nose MRSA Culture - Final NO METHICILLIN RESISTANT STAPH AUREUS... Complete 02/07/19 23:30 Urine,Clean Catch Urine Culture - Final Klebsiella Pneumoniae Complete 02/08/19 04:30 Rectum - Final NO CARBAPENEM-RESISTANT ENTEROBACTERI... Complete 02/08/19 04:30 Rectum VRE Culture - Final NO VANCOMYCIN RESISTANT ENTEROCOCCUS ... Complete Accucheck: 181 Blood Sugars: BS not controlled Critical Care - Subjective ROS Limited/Unobtainable: Yes Condition: critical, improving FI02: 40 Vent Support Breath Rate: 12 Vent Support Mode: IMV/SIMV Vent Tidal Volume: 400 Sputum Amount: Scant PEEP: 5.0 PIP: 21 Tube Feeding Amount: 20 I&O: Intake and Output 02/09/19 02/10/19 19:00 07:00 Output Total 170 ml 210 ml Balance -170 ml -210 ml Output Urine Total 170 ml 210 ml Subjective: more awake doing well on current imv settings weaned on CPAP for 6 hours doign better WBC up today seen by ID, started on abx positive uop no cp nv or bleeding tolerating tf ET-Tube: 7.5 ET Position: 20 Labs: Laboratory Tests Test 02/10/19 05:20 02/10/19 08:00 02/10/19 13:21 White Blood Count 21.5 K/UL (4.8-10.8) #H 21.9 K/UL (4.8-10.8) H Red Blood Count 4.74 M/UL (4.20-5.40) 4.69 M/UL (4.20-5.40) Hemoglobin 13.1 G/DL (12.0-16.0) 13.1 G/DL (12.0-16.0) Hematocrit 41.6 % (37.0-47.0) 41.3 % (37.0-47.0) Mean Corpuscular Volume 88 FL (80-99) 88 FL (80-99) Mean Corpuscular Hemoglobin 27.7 PG (27.0-31.0) 27.9 PG (27.0-31.0) Mean Corpuscular Hemoglobin Concent 31.5 G/DL (32.0-36.0) L 31.6 G/DL (32.0-36.0) L Red Cell Distribution Width 15.2 % (11.6-14.8) H 15.5 % (11.6-14.8) H Platelet Count 571 K/UL (150-450) H 629 K/UL (150-450) H Mean Platelet Volume 5.6 FL (6.5-10.1) L 5.4 FL (6.5-10.1) L Neutrophils (%) (Auto) % (45.0-75.0) % (45.0-75.0) Lymphocytes (%) (Auto) % (20.0-45.0) % (20.0-45.0) Monocytes (%) (Auto) % (1.0-10.0) % (1.0-10.0) Eosinophils (%) (Auto) % (0.0-3.0) % (0.0-3.0) Basophils (%) (Auto) % (0.0-2.0) % (0.0-2.0) Differential Total Cells Counted 100 100 Neutrophils % (Manual) 86 % (45-75) H 82 % (45-75) H Lymphocytes % (Manual) 7 % (20-45) L 8 % (20-45) L Monocytes % (Manual) 7 % (1-10) 10 % (1-10) Eosinophils % (Manual) 0 % (0-3) 0 % (0-3) Basophils % (Manual) 0 % (0-2) 0 % (0-2) Band Neutrophils 0 % (0-8) 0 % (0-8) Platelet Estimate Increased H Increased H Platelet Morphology Normal Normal Polychromasia 1+ 1+ Hypochromasia 1+ 1+ Anisocytosis 1+ 1+ Sodium Level 143 MMOL/L (136-145) 141 MMOL/L (136-145) Potassium Level 3.4 MMOL/L (3.5-5.1) L 3.5 MMOL/L (3.5-5.1) Chloride Level 96 MMOL/L (98-107) L 101 MMOL/L (98-107) Carbon Dioxide Level 35 MMOL/L (21-32) H 38 MMOL/L (21-32) H Anion Gap 12 mmol/L (5-15) 2 mmol/L (5-15) L Blood Urea Nitrogen 67 mg/dL (7-18) H 70 mg/dL (7-18) H Creatinine 2.9 MG/DL (0.55-1.30) H 2.8 MG/DL (0.55-1.30) H Estimat Glomerular Filtration Rate mL/min (>60) mL/min (>60) Glucose Level 161 MG/DL (74-106) H 151 MG/DL (74-106) H Calcium Level 9.7 MG/DL (8.5-10.1) 9.3 MG/DL (8.5-10.1) Total Bilirubin 0.5 MG/DL (0.2-1.0) Aspartate Amino Transf (AST/SGOT) 22 U/L (15-37) Alanine Aminotransferase (ALT/SGPT) 13 U/L (12-78) Alkaline Phosphatase 127 U/L (46-116) H Troponin I 0.194 ng/mL (0.000-0.056) 0.139 ng/mL (0.000-0.056) Pro-B-Type Natriuretic Peptide 4990 pg/mL (0-125) H Total Protein 7.5 G/DL (6.4-8.2) Albumin 2.9 G/DL (3.4-5.0) L Globulin 4.6 g/dL Albumin/Globulin Ratio 0.6 (1.0-2.7) L Magnesium Level 2.6 MG/DL (1.8-2.4) H Arterial Blood pH 7.494 (7.350-7.450) Arterial Blood Partial Pressure CO2 49.6 mmHg (35.0-45.0) H Arterial Blood Partial Pressure O2 116.5 mmHg (75.0-100.0) H Arterial Blood HCO3 37.3 mmol/L (22.0-26.0) H Arterial Blood Oxygen Saturation 98.0 % (95-100) Arterial Blood Base Excess 12.3 (-2-2) *H Ector Test Positive Current Medications Medications (Trade) Dose Ordered Sig/Willy Route PRN Reason Start Time Stop Time Status Last Admin Dose Admin Acetaminophen (Tylenol) 650 mg Q6H PRN NG Mild Pain/Temp > 100.5 02/09/19 12:45 03/11/19 12:44 02/09/19 13:03 Albuterol/ Ipratropium (Albuterol/ Ipratropium) 3 ml Q6HRT HHN 02/08/19 13:00 02/13/19 08:59 02/10/19 19:21 Amlodipine Besylate (Norvasc) 5 mg DAILY ORAL 02/09/19 09:00 03/11/19 08:59 02/10/19 09:26 Apixaban (Eliquis) 5 mg BID ORAL 02/08/19 18:00 03/10/19 08:59 02/10/19 17:48 Aspirin (ASA) 81 mg DAILY ORAL 02/09/19 09:00 03/10/19 08:59 02/10/19 09:26 Atorvastatin Calcium (Lipitor) 80 mg BEDTIME ORAL 02/08/19 21:00 03/10/19 20:59 02/09/19 21:06 Ceftriaxone Sodium 1 gm/ Dextrose 50 ml @ 100 mls/hr Q24H IVPB 02/10/19 17:00 02/17/19 16:59 02/10/19 17:48 Clopidogrel Bisulfate (Plavix) 75 mg DAILY ORAL 02/09/19 09:00 03/10/19 08:59 02/10/19 09:26 Hydralazine HCl (Apresoline) 50 mg EVERY 8 HOURS ORAL 02/08/19 14:00 03/10/19 05:59 02/10/19 14:36 Insulin Aspart (NovoLOG) EVERY 4 HOURS SUBQ 02/08/19 21:00 03/10/19 06:29 02/10/19 18:00 Insulin Detemir (Levemir) 16 units BID SUBQ 02/09/19 09:00 03/10/19 20:59 02/10/19 18:01 Lorazepam (Ativan 2mg/ml 1ml) 1 mg Q2H PRN IV For Anxiety 02/08/19 17:15 02/15/19 17:14 02/08/19 17:42 Methylprednisolone Sodium Succinate (Solu-MEDROL) 40 mg DAILY IVP 02/10/19 09:00 03/12/19 08:59 02/10/19 09:25 Metoprolol Tartrate (Lopressor) 50 mg Q6HR ORAL 02/09/19 18:30 03/11/19 18:29 02/10/19 17:48 Pantoprazole (Protonix) 40 mg DAILY IVP 02/08/19 20:45 03/10/19 20:44 02/10/19 09:25 Citlaly Sandoval DO Feb 10, 2019 20:12
[2019-02-10] MEDS: Atorvastatin 80mg tab ORAL SCH (20:45)
--- NOTE | 2019-02-10 21:30 | NUR ---
NURSE NOTES:Turned for comfort and suctioned tk beige secretions moderate in amt. Dr Sandoval at bedside updated with pts condition. No new orders given,
--- NOTE | 2019-02-10 22:30 | Consultation ---
DATE OF CONSULTATION: 02/10/2019 INFECTIOUS DISEASE CONSULT CONSULTING PHYSICIAN: Jose Cutler M.D. ATTENDING PHYSICIAN: Blu Brink M.D. REFERRING PHYSICIAN: Citlaly Sandoval D.O. who is covering for Blu Brink M.D. REASON FOR CONSULTATION: Possible sepsis, elevated white count, fevers, Klebsiella UTI. CHIEF COMPLAINT: The patient's chief complaint coming into the hospital is congestive heart failure and respiratory failure. HISTORY OF PRESENT ILLNESS: This is a 73-year-old female who comes in to [facility] because of shortness of breath and uncontrolled diabetes. She had an elevated blood sugar of 437, had CHF, and frequent falls. The patient is now intubated in the ICU at [place]. She is alert. She is not on pressors. The patient's leukocytosis is getting worse with white count of 21.9. Workup shows that she has a Klebsiella pneumoniae UTI; however, she is on IV steroids also. Infectious Disease consult requested for antibiotic management. The patient was placed on Rocephin 1 g IV q.24 hours. Chart was reviewed. Records and labs are reviewed. Cultures reviewed. REVIEW OF SYSTEMS: CONSTITUTIONAL: She is in the ICU. She is intubated on a vent. No pressors. HEAD AND NECK: She is orally intubated. CARDIAC: No pressors. GASTROINTESTINAL: No nausea, vomiting, or diarrhea. GENITOURINARY: She has a Turner. PULMONARY: She came in with shortness of breath, is intubated. SKIN: No rash. No pruritus, nausea, or seizures. PAST MEDICAL HISTORY: Includes the following. The patient has a past medical history of CHF. She has an elevated creatinine. She has history of diabetes, history of falls, sick sinus syndrome, pacemaker, COPD, sleep apnea, anemia, aortic atherosclerosis, coronary artery disease, back pain, diastolic heart failure, chronic kidney disease, hyperlipidemia, neuropathy, obesity, hypertension. She has history of retinopathy, vitamin D deficiency. She has been on blood pressure medications. ALLERGIES: Include sulfa drugs. SOCIAL HISTORY: Negative for smoking, alcohol, drug abuse. FAMILY HISTORY: Noncontributory. MEDICATIONS: Upon reviewing the MAR, she is on following medications. She is on methylprednisolone, metoprolol. She is on acetaminophen, aspirin, clopidogrel, amlodipine, insulin. She is on Lipitor, NovoLog insulin, Protonix, Eliquis, lorazepam, hydralazine, albuterol treatments. Outside medications noted and reconciliated. PHYSICAL EXAMINATION: VITAL SIGNS: T-max is 100.6, currently blood pressure 114/63, most recent temperature 98.6, pulse rate 97, respiratory rate 17, FiO2 40%, saturation 100%. GENERAL: She is in the ICU. She is intubated. No pressors. HEAD AND NECK: Orally intubated. Eye exam, no icterus. Normocephalic. No JVD. HEART: Regular. No obvious gallop. No murmur, friction rub. ABDOMEN: Soft. Positive bowel sounds. LUNGS: Bilateral rhonchi, rales, and crackles. Possible rales, but no significant rales more fairly. Clearly we might say maybe occasional crackles and rhonchi. SKIN: No rash or dermatitis. MUSCULOSKELETAL: No effusion. Legs are without cellulitis. PERIPHERAL VASCULAR: No cyanosis. GENITOURINARY: She has a Turner. Urine is slightly cloudy. LINE SITES: Without phlebitis. NEUROLOGIC: Awake and responsive. LABORATORY DATA: As follows. White count 21.9, hemoglobin 13.1. Creatinine 2.8. UA had positive nitrite, moderate bacteria. Urine culture greater than 100,000 Klebsiella pneumoniae sensitive to Rocephin and cefazolin. Sputum culture normal kady. Chest x-ray showed no significant change and it looks like atelectasis was seen. It is the most recent chest x-ray from today 02/02/2019. Initial chest x-ray showed CHF findings, interstitial congestion. ASSESSMENT AND PLAN: 1. The patient has Klebsiella UTI, likely complicated UTI. The patient has elevated white count and fevers. However, she has also been on steroids, which could cause leukocytosis. The patient will be placed on Rocephin 1 g IV q.24 hours for the Klebsiella UTI and possible sepsis, elevated white count. Monitor leukocytosis. Again, the patient is on steroids. There is no obvious pneumonia at this time. Most likely CHF with respiratory failure. Continue Rocephin . Plan on 7 to 10-day course of antibiotics. Continue IV Rocephin for now. 2. Acute renal failure. 3. Anemia. 4. CHF. 5. Respiratory failure. 6. ICU care. 7. Diabetes. 8. Possible hypertension. 9. Blood sugar treatment per Endocrinology and primary. 10. Vent care per Dr. Brink and Dr. Sandoval. 11. Falls. 12. Sick sinus syndrome, pacemaker. 13. Sleep apnea, COPD. 14. Anemia. 15. Diastolic heart disease. 16. Coronary artery disease. 17. CHF. 18. Dyslipidemia. 19. Neuropathy. 20. Obesity. 21. Vitamin D deficiency. 22. Allergies to sulfa drugs. 23. MAR is noted. 24. Case was discussed with RN. 25. Social history negative. 26. Family history noncontributory. 27. Continue treatment per primary consultants. Jose Cutler M.D. DR: MACIEJ JOB#: [id number] CC:
--- NOTE | 2019-02-10 22:45 | Progress Note ---
DATE: 02/10/2019 CARDIOLOGY PROGRESS NOTE SUBJECTIVE: The patient remains in the intensive care unit. Condition remains critical. Prognosis guarded. She remains on ventilator support. Weaning trials are in progress. Monitored rhythm, sinus with bundle-branch block. PHYSICAL EXAMINATION: VITAL SIGNS: Blood pressure 109/54, pulse 80, respiratory rate 14, and afebrile. LUNGS: Bilateral breath sounds. Scattered rhonchi. Orally intubated. HEART: Regular rhythm and rate. Normal S1 and S2. A 1/6 systolic murmur at apex. ABDOMEN: Soft. There is no guarding or rebound. EXTREMITIES: Without edema. LABORATORY AND DIAGNOSTIC DATA: White count 21.9 and hemoglobin 13.1. Chest x-ray today reveals no interval change with atelectasis at the left base. ABG, pH 7.49, pCO2 49, and pO2 116. Sodium 141, potassium 3.5, bicarbonate 38, BUN 70, and creatinine 2.8. Troponin is 0.139. Natriuretic peptide is 4990. IMPRESSION: 1. Respiratory failure. 2. UTI with sepsis. 3. COPD exacerbation. 4. Acute on chronic renal failure. 5. Cerebrovascular disease with encephalopathy. 6. Acute on chronic diastolic congestive heart failure. 7. Paroxysmal atrial fibrillation, now in sinus rhythm. 8. Permanent pacemaker. PLAN: 1. Weaning trials. 2. Antimicrobials. 3. Respiratory hygiene. 4. Steroid taper. 5. Hold diuretics. 6. Repeat renal parameters. 7. DVT and stress ulcer prophylaxis. Dominic Martínez M.D. DR: CLIFF JOB#: [id number] CC:
--- NOTE | 2019-02-10 23:00 | NUR ---
NURSE NOTES:Accucheck with coverage. Pls see EMar . watch for any hypoglycemic rections.
[2019-02-11] VITALS (26 sets, daily range): BP systolic 97–122; BP diastolic 46–83
--- NOTE | 2019-02-11 | NUR ---
NURSE NOTES:NGT fdg increased up to 30ml at this time. HOB kept elevated. on aspiration precautions.
[2019-02-11] MEDS: Albuterol/Ipratropium 3ml neb HHN SCH ×4 (01:00→19:42)
[2019-02-11] MEDS: NovoLOG Insulin Flexpen SUBQ SCH ×6 (01:12→20:41)
--- NOTE | 2019-02-11 02:00 | NUR ---
NURSE NOTES:Still AFIB on the monitor, rate 92/mi. bp 94/50. Will continue to observe.
--- NOTE | 2019-02-11 04:00 | NUR ---
NURSE NOTES: Complete bath with bed changed was done.
[2019-02-11 05:18] LABS: HEMATOCRIT 37.5 % (37.0-47.0); HEMOGLOBIN 11.7 G/DL (12.0-16.0); MEAN CORPUSCULAR VOLUME 89 FL (80-99); PLATELET COUNT 537 K/UL (150-450); RED BLOOD COUNT 4.23 M/UL (4.20-5.40); RED CELL DISTRIBUTION WIDTH 15.3 % (11.6-14.8); WHITE BLOOD COUNT 20.1 K/UL (4.8-10.8)
[2019-02-11] MEDS: Metoprolol Tartrate 50mg tab ORAL SCH ×3 (05:39→18:29)
[2019-02-11] MEDS: HydrALAZINE 50mg tab ORAL SCH ×3 (05:40→22:00)
[2019-02-11 05:41] LABS: ALANINE AMINOTRANSFERASE 14 U/L (12-78); ALBUMIN 2.5 G/DL (3.4-5.0); ALBUMIN/GLOBULIN RATIO 0.7 (1.0-2.7); ALKALINE PHOSPHATASE 126 U/L (46-116); ANION GAP 9 mmol/L (5-15); ASPARTATE AMINO TRANSFERASE 24 U/L (15-37); BILIRUBIN,TOTAL 0.3 MG/DL (0.2-1.0); BLOOD UREA NITROGEN 82 mg/dL (7-18); CALCIUM 8.7 MG/DL (8.5-10.1); CARBON DIOXIDE 35 MMOL/L (21-32); CHLORIDE 100 MMOL/L (98-107); CREATININE 2.4 MG/DL (0.55-1.30); SODIUM 144 MMOL/L (136-145)
--- NOTE | 2019-02-11 06:00 | NUR ---
NURSE NOTES:Tolerated SIMV mode the whole night, no resp. distress noted.
--- NOTE | 2019-02-11 06:30 | General Progress Note ---
Assessment/Plan Problem List: (1) Bacteriuria ICD Codes: R82.71 - Bacteriuria SNOMED: 49770527 (2) Uncontrolled diabetes mellitus ICD Codes: E11.65 - Type 2 diabetes mellitus with hyperglycemia SNOMED: 02607310, 436277847 Qualifiers: Qualified Codes: E11.65 - Type 2 diabetes mellitus with hyperglycemia (3) Acute exacerbation of CHF (congestive heart failure) ICD Codes: I50.9 - Heart failure, unspecified SNOMED: 529676574, [id number] Qualifiers: Qualified Codes: I50.9 - Heart failure, unspecified Assessment/Plan: increase Levemir to 18 units bid continue NISS every 4 hours Subjective ROS Limited/Unobtainable: Yes Allergies: Coded Allergies: SULFA (SULFONAMIDE ANTIBIOTICS) (Unverified Allergy, Unknown, 02/08/19) Uncoded Allergies: SULFA (Allergy, Unknown, 02/07/19) Subjective events noted on TF Item Value Date Time Bedside Blood Glucose 219 mg/dl H 02/11/19 0457 Bedside Blood Glucose 168 mg/dl H 02/11/19 0112 Bedside Blood Glucose 182 mg/dl H 02/10/19 2114 Bedside Blood Glucose 181 mg/dl H 02/10/19 1801 Bedside Blood Glucose 141 mg/dl H 02/10/19 1312 Bedside Blood Glucose 130 mg/dl H 02/10/19 0934 Bedside Blood Glucose 141 mg/dl H 02/10/19 0501 Bedside Blood Glucose 135 mg/dl H 02/10/19 0040 Objective Last 24 Hour Vital Signs Date Time Temp Pulse Resp B/P (MAP) Pulse Ox O2 Delivery O2 Flow Rate FiO2 02/11/19 05:40 112/52 02/11/19 05:39 91 112/52 02/11/19 05:12 89 16 40 02/11/19 03:17 88 16 40 02/11/19 02:00 87 17 104/50 (68) 98 02/11/19 01:22 84 14 99 Mechanical Ventilator 40 02/11/19 01:00 83 14 99 Mechanical Ventilator 40 02/11/19 01:00 84 14 97/53 (68) 98 02/11/19 01:00 84 14 40 02/11/19 00:00 40 02/11/19 00:00 98.8 92 16 102/50 (67) 99 02/11/19 00:00 82 7/29/19 00:00 Mechanical Ventilator 02/10/19 23:57 96 105/57 02/10/19 23:30 91 14 40 02/10/19 23:00 94 18 105/57 (73) 99 02/10/19 22:00 88 17 103/54 (70) 99 02/10/19 21:48 112/58 02/10/19 21:18 78 13 40 02/10/19 21:00 85 18 112/58 (76) 99 02/10/19 20:00 80 02/10/19 20:00 40 02/10/19 20:00 Mechanical Ventilator 02/10/19 20:00 99.0 83 16 126/76 (93) 100 02/10/19 19:32 77 12 100 Mechanical Ventilator 40 02/10/19 19:22 82 15 40 02/10/19 19:21 81 14 100 Mechanical Ventilator 40 02/10/19 19:00 80 14 109/54 (72) 100 02/10/19 18:00 92 20 133/66 (88) 99 02/10/19 17:48 88 121/57 02/10/19 17:25 90 15 40 02/10/19 17:00 92 18 121/57 (78) 100 02/10/19 16:00 Mechanical Ventilator 02/10/19 16:00 40 02/10/19 16:00 99.1 94 15 125/74 (91) 100 02/10/19 16:00 88 02/10/19 15:29 85 14 40 02/10/19 15:00 93 17 115/59 (77) 99 02/10/19 14:36 114/63 02/10/19 14:00 98.8 88 14 114/63 (80) 99 02/10/19 13:16 97 17 40 02/10/19 13:15 88 14 100 Mechanical Ventilator 40 02/10/19 13:07 97 131/64 02/10/19 13:00 90 12 100 Mechanical Ventilator 40 02/10/19 13:00 93 18 131/64 (86) 99 02/10/19 12:00 Mechanical Ventilator 02/10/19 12:00 40 02/10/19 12:00 94 16 126/61 (82) 99 02/10/19 12:00 93 7/28/19 11:25 90 14 40 02/10/19 11:00 92 17 140/71 (94) 99 02/10/19 10:00 84 13 146/79 (101) 99 02/10/19 09:26 89 153/81 02/10/19 09:01 84 14 40 02/10/19 09:00 87 20 153/81 (105) 100 02/10/19 08:00 85 02/10/19 08:00 98.6 86 18 141/68 (92) 100 02/10/19 08:00 40 02/10/19 08:00 Mechanical Ventilator 02/10/19 07:00 85 18 125/64 (84) 100 02/10/19 06:40 100 02/10/19 06:35 74 12 100 Mechanical Ventilator 40 02/10/19 06:30 83 14 40 Intake and Output 02/10/19 02/11/19 19:00 07:00 Intake Total 290 ml 180 ml Output Total 525 ml 540 ml Balance -235 ml -360 ml Intake Free Water 30 ml IV Total 50 ml Tube Feeding 210 ml 150 ml Other 30 ml Output Urine Total 525 ml 540 ml Laboratory Tests 02/10/19 08:00: White Blood Count 21.9H, Red Blood Count 4.69, Hemoglobin 13.1, Hematocrit 41.3 , Mean Corpuscular Volume 88, Mean Corpuscular Hemoglobin 27.9, Mean Corpuscular Hemoglobin Concent 31.6L, Red Cell Distribution Width 15.5H, Platelet Count 629H, Mean Platelet Volume 5.4L, Neutrophils (%) (Auto) , Lymphocytes (%) (Auto) , Monocytes (%) (Auto) , Eosinophils (%) (Auto) , Basophils (%) (Auto) , Differential Total Cells Counted 100, Neutrophils % ( Manual) 82H, Lymphocytes % (Manual) 8L, Monocytes % (Manual) 10, Eosinophils % ( Manual) 0, Basophils % (Manual) 0, Band Neutrophils 0, Platelet Estimate IncreasedH, Platelet Morphology Normal, Polychromasia 1+, Hypochromasia 1+, Anisocytosis 1+, Sodium Level 141, Potassium Level 3.5, Chloride Level 101, Carbon Dioxide Level 38H, Anion Gap 2L, Blood Urea Nitrogen 70H, Creatinine 2.8H , Estimat Glomerular Filtration Rate , Glucose Level 151H, Calcium Level 9.3, Magnesium Level 2.6H, Troponin I 0.139H 7/28/19 13:21: Arterial Blood pH 7.494H, Arterial Blood Partial Pressure CO2 49.6H, Arterial Blood Partial Pressure O2 116.5H, Arterial Blood HCO3 37.3H, Arterial Blood Oxygen Saturation 98.0, Arterial Blood Base Excess 12.3*H, Ector Test Positive 02/11/19 04:05: White Blood Count 20.1H, Red Blood Count 4.23, Hemoglobin 11.7L, Hematocrit 37.5 , Mean Corpuscular Volume 89, Mean Corpuscular Hemoglobin 27.7, Mean Corpuscular Hemoglobin Concent 31.3L, Red Cell Distribution Width 15.3H, Platelet Count 537H, Mean Platelet Volume 5.4L, Neutrophils (%) (Auto) , Lymphocytes (%) (Auto) , Monocytes (%) (Auto) , Eosinophils (%) (Auto) , Basophils (%) (Auto) , Neutrophils % (Manual) [Pending], Lymphocytes % (Manual) [Pending], Platelet Estimate [Pending], Platelet Morphology [Pending], Sodium Level 144, Potassium Level 4.0, Chloride Level 100, Carbon Dioxide Level 35H, Anion Gap 9, Blood Urea Nitrogen 82H, Creatinine 2.4H, Estimat Glomerular Filtration Rate , Glucose Level 242H, Calcium Level 8.7, Magnesium Level 2.6H, Total Bilirubin 0.3, Aspartate Amino Transf (AST/SGOT) 24, Alanine Aminotransferase (ALT/SGPT) 14, Alkaline Phosphatase 126H, Total Protein 6.1L, Albumin 2.5L, Globulin 3.6, Albumin/Globulin Ratio 0.7L Height (Feet): 5 Height (Inches): 4.00 Weight (Pounds): 170 General Appearance: no apparent distress Neck: normal alignment Cardiovascular: arrhythmia Respiratory/Chest: decreased breath sounds Abdomen: normal bowel sounds Edema: 2+ Arm (L), 2+ Arm (R), 2+ Leg (L), 2+ Leg (R), 2+ Pedal (L), 2+ Pedal ( R), 2+ Generalized Objective Current Medications Medications (Trade) Dose Ordered Sig/Willy Route PRN Reason Start Time Stop Time Status Last Admin Dose Admin Acetaminophen (Tylenol) 650 mg Q6H PRN NG Mild Pain/Temp > 100.5 02/09/19 12:45 03/11/19 12:44 02/09/19 13:03 Albuterol/ Ipratropium (Albuterol/ Ipratropium) 3 ml Q6HRT HHN 02/08/19 13:00 02/13/19 08:59 02/11/19 01:00 Amlodipine Besylate (Norvasc) 5 mg DAILY ORAL 02/09/19 09:00 03/11/19 08:59 02/10/19 09:26 Apixaban (Eliquis) 5 mg BID ORAL 02/08/19 18:00 03/10/19 08:59 02/10/19 17:48 Aspirin (ASA) 81 mg DAILY ORAL 02/09/19 09:00 03/10/19 08:59 02/10/19 09:26 Atorvastatin Calcium (Lipitor) 80 mg BEDTIME ORAL 02/08/19 21:00 03/10/19 20:59 02/10/19 20:45 Ceftriaxone Sodium 1 gm/ Dextrose 50 ml @ 100 mls/hr Q24H IVPB 02/10/19 17:00 02/17/19 16:59 02/10/19 17:48 Clopidogrel Bisulfate (Plavix) 75 mg DAILY ORAL 02/09/19 09:00 03/10/19 08:59 02/10/19 09:26 Hydralazine HCl (Apresoline) 50 mg EVERY 8 HOURS ORAL 02/08/19 14:00 03/10/19 05:59 02/11/19 05:40 Insulin Aspart (NovoLOG) EVERY 4 HOURS SUBQ 02/08/19 21:00 03/10/19 06:29 02/11/19 04:57 Insulin Detemir (Levemir) 16 units BID SUBQ 02/09/19 09:00 03/10/19 20:59 02/10/19 18:01 Lorazepam (Ativan 2mg/ml 1ml) 1 mg Q2H PRN IV For Anxiety 02/08/19 17:15 02/15/19 17:14 02/08/19 17:42 Methylprednisolone Sodium Succinate (Solu-MEDROL) 40 mg DAILY IVP 02/10/19 09:00 03/12/19 08:59 02/10/19 09:25 Metoprolol Tartrate (Lopressor) 50 mg Q6HR ORAL 7/27/19 18:30 03/11/19 18:29 02/11/19 05:39 Pantoprazole (Protonix) 40 mg DAILY IVP 02/08/19 20:45 03/10/19 20:44 02/10/19 09:25 Garett Shay MD Feb 11, 2019 06:30
--- NOTE | 2019-02-11 07:59 | NUR ---
HAND-OFF: Report given to Suzanne MORALES
--- NOTE | 2019-02-11 08:00 | NUR ---
NURSE NOTES: Received change of shift report from Cheir MORALES. Pt is awake, alert, intubated, able to follow command, and responds by nodding head. ETT 7.5 at 20cm at left lipline with vent settings SIMV 12, TV400, Peep 5, PS 12 with O2sat at 100%. cardiac monitor displays AFib with heart rate in the 70's. NGT in place with feeding Glucerna 1.5 infusing at goal rate of 40ml/hour. Pt is tolerating feeding well with no residual or s/s of nausea. Abdomen is large, round, soft, nontender to touch with active bowel sounds in all quadrants. Turner catheter is in place, draining clear/yellow urine. Pt has bilateral soft wrist restraints to prevent from pulling ET tube out. Skin integrity at restraint site is within normal limits. Head of bed is at 30 degrees, bed in lowest position with three side rails up, bed locked and call light within reach.
--- NOTE | 2019-02-11 08:45 | NUR ---
RESPIRATORY NOTE: Extubated Patient at 0845. Placed on NC 4LPM 36% Fio2. etCO2 48 saturations 98%. Patient doing well, will continue to closely monitor.
[2019-02-11] MEDS: Aspirin Baby 81mg ORAL SCH (09:00)
[2019-02-11] MEDS: Pantoprazole Inj IVP SCH (09:00)
[2019-02-11] MEDS: Eliquis 5mg tablet ORAL SCH ×2 (09:00→18:29)
[2019-02-11] MEDS: Solu-MEDROL 40mg Inj IVP SCH (09:00)
--- NOTE | 2019-02-11 09:00 | NUR ---
NURSE NOTES: Pt was seen by Dr Brink and was extubated by RT per MD order. Pt is currently on NC at 4L with O2sat at 98%. Head of bed is elevated. VS stable.
[2019-02-11] MEDS: Levemir Flexpen SUBQ SCH ×2 (09:21→18:00)
--- NOTE | 2019-02-11 09:30 | NUR ---
NURSE NOTES: Restraints were discontinued after extubation and removal of NG tube. Pt is alert and oriented x4, able to comprehend and follow commands. Pt is primarily Yemeni speaker, however understands simple Slovak.
--- NOTE | 2019-02-11 10:00 | NUR ---
NURSE NOTES: AM meds were administered via NG tube. NG tube was then removed by MD crain. Pt currently remains on NC at 4L with O2sat at 96%. VS stable.
--- NOTE | 2019-02-11 11:00 | NUR ---
NURSE NOTES: Pt had BM x1, soft/brown/formed. Pt was cleaned, gown/linens changed. Pt was repositioned. VS stable.
--- NOTE | 2019-02-11 11:18 | NUR ---
Social Work This SW met patient who is currently alert/oriented x4, speaks Japanese only. This Sw spoke with daughter, Val Gómez (primary decision maker; does not have an Advance Directive). Daughter requesting full code, full treatment. Patient lives with daughter; family to assist with all ADLs (patient was ambulatory with walker-with seat, and has a shower chair). Daughter explains they were anticipating discharge to [facility] [place] [facility] [address] (arranged from Urgent Care), but is requesting either for patient to discharge to home with family care (and home health for P.T) or a SNF closer to her home ([place] or [facility]). This Sw explained will need SNF to locate with available bed and in contract with [facility]. This SW explained how to switch from [facility] to Medicare benefits (per daughter requesting this information). Daughter believes patient will want to stay with [facility], however. P.T to evaluate patient here. Daughter has three steps to her home. Patient has home 02 (through [facility]), did not have a home care agency prior to this admission. Daughter denied any substance abuse history, while explains patient has situation depression from time to time, was not taking any antidepressants.
--- NOTE | 2019-02-11 12:57 | NUR ---
*-* INSURANCE *-* ALL CLINICALS AND REVIEWS HAVE BEEN FAXED TO: [facility] P: [phone] F: [phone] (FAX CLINICALS)
--- NOTE | 2019-02-11 13:00 | NUR ---
NURSE NOTES: Pt was given lunch tray, clear liquid diet per MD order. Pt consumed over 50% of lunch meal. Currently maintained on nasal cannula at 4L with O2sat at 96%. VS stable.
--- NOTE | 2019-02-11 14:00 | NUR ---
NURSE NOTES: Pt is asleep. Pt is a mouth-breather and O2sat is not decreased to 88% while pt is asleep and on nasal cannula. RT at bedside and is switching pt to venturi-mask at 40%FIO2 and O2sat increasing now to 98%. VS remain stable.
--- NOTE | 2019-02-11 14:19 | NUR ---
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 98.1 HR 88 RR 14 B/P 145,77 4L NC O2 SAT @ 98% WBC 20.1 BUN 82 CR 2.4 IS; CEFTRIAXONE IV SOLU MEDROL IV PROTONIX IV ALB HHN ICU STATUS
--- NOTE | 2019-02-11 16:03 | NUR ---
NURSE NOTES: VS stable. O2sat remains at 99% while pt is currently on Venti-mask FIO2 40% while pt is asleep. Pt is a mouth-breather and O2sat drops to 80's with a nasal cannula while pt is asleep.
--- NOTE | 2019-02-11 16:11 | Pulmonology Progress Note ---
Assessment/Plan Assessment/Plan 1. Congestive heart failure. 2. Diabetes, out of control. 3. Altered mental status due to CO2 narcosis 4. COPD with resp failure 5. Sleep apnea. 6. Atrial fibrillation, not on anticoagulants. 7. Coronary heart disease. 8. Aortic atherosclerosis. 9. 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 extubate feed PO WBC high due to steroids, taper AC per cardiology Subjective ROS Limited/Unobtainable: Yes Allergies: Coded Allergies: SULFA (SULFONAMIDE ANTIBIOTICS) (Unverified Allergy, Unknown, 02/08/19) Uncoded Allergies: SULFA (Allergy, Unknown, 02/07/19) Objective Last 24 Hour Vital Signs Date Time Temp Pulse Resp B/P (MAP) Pulse Ox O2 Delivery O2 Flow Rate FiO2 02/11/19 15:00 75 11 101/46 (64) 97 02/11/19 14:41 101/57 02/11/19 14:00 76 10 101/57 (72) 86 02/11/19 13:18 96 18 95 Room Air 4.0 36 02/11/19 13:10 84 18 96 Nasal Cannula 4.0 36 02/11/19 13:00 87 13 109/83 (92) 94 02/11/19 12:23 97 116/62 02/11/19 12:18 88 16 116/62 (80) 98 02/11/19 12:00 Mechanical Ventilator 6.0 Nasal Cannula 02/11/19 12:00 78 02/11/19 12:00 98.4 80 14 99/59 (72) 98 02/11/19 12:00 6.0 02/11/19 11:00 83 13 111/60 (77) 99 02/11/19 10:00 86 13 118/58 (78) 99 02/11/19 09:01 88 116/60 02/11/19 09:00 85 14 105/53 (70) 99 02/11/19 08:57 100 Nasal Cannula 4.0 36 02/11/19 08:56 Nasal Cannula 4.0 36 02/11/19 08:00 88 02/11/19 08:00 40 02/11/19 08:00 Mechanical Ventilator 02/11/19 08:00 98.1 81 14 112/59 (76) 100 02/11/19 07:44 88 12 100 Mechanical Ventilator 40 02/11/19 07:37 75 12 100 Mechanical Ventilator 40 02/11/19 07:20 77 15 40 02/11/19 07:02 94 18 116/60 (78) 98 02/11/19 07:00 84 18 117/60 (79) 98 02/11/19 06:00 94 18 116/60 (78) 98 02/11/19 05:40 112/52 02/11/19 05:39 91 112/52 02/11/19 05:12 89 16 40 02/11/19 05:00 92 17 112/52 (72) 98 02/11/19 04:00 98.6 90 17 98/51 (67) 98 02/11/19 04:00 Mechanical Ventilator 02/11/19 04:00 40 02/11/19 04:00 87 02/11/19 03:17 88 16 40 02/11/19 03:00 91 17 106/60 (75) 98 02/11/19 02:00 87 17 104/50 (68) 98 02/11/19 01:22 84 14 99 Mechanical Ventilator 40 02/11/19 01:00 83 14 99 Mechanical Ventilator 40 02/11/19 01:00 84 14 97/53 (68) 98 02/11/19 01:00 84 14 40 02/11/19 00:00 40 02/11/19 00:00 98.8 92 16 102/50 (67) 99 02/11/19 00:00 82 02/11/19 00:00 Mechanical Ventilator 02/10/19 23:57 96 105/57 02/10/19 23:30 91 14 40 02/10/19 23:00 94 18 105/57 (73) 99 02/10/19 22:00 88 17 103/54 (70) 99 02/10/19 21:48 112/58 02/10/19 21:18 78 13 40 02/10/19 21:00 85 18 112/58 (76) 99 02/10/19 20:00 80 02/10/19 20:00 40 02/10/19 20:00 Mechanical Ventilator 02/10/19 20:00 99.0 83 16 126/76 (93) 100 02/10/19 19:32 77 12 100 Mechanical Ventilator 40 02/10/19 19:22 82 15 40 02/10/19 19:21 81 14 100 Mechanical Ventilator 40 02/10/19 19:00 80 14 109/54 (72) 100 02/10/19 18:00 92 20 133/66 (88) 99 02/10/19 17:48 88 121/57 02/10/19 17:25 90 15 40 02/10/19 17:00 92 18 121/57 (78) 100 Intake and Output 02/10/19 02/11/19 18:59 06:59 Intake Total 270 ml 350 ml Output Total 470 ml 995 ml Balance -200 ml -645 ml Free Water 60 ml IV Total 50 ml Tube Feeding 190 ml 290 ml Other 30 ml Output Urine Total 470 ml 995 ml General Appearance: no acute distress HEENT: atraumatic Respiratory/Chest: lungs clear Cardiovascular: normal rate Microbiology Date/Time Source Procedure Growth Status 02/10/19 10:30 Sputum Induced Gram Stain - Final Resulted 02/10/19 10:30 Sputum Induced Sputum Culture Pending Resulted 02/08/19 16:20 Sputum Gram Stain - Final Complete 02/08/19 16:20 Sputum Sputum Culture - Final NORMAL UPPER RESPIRATORY ROHAN AT 48 ... Complete 02/10/19 10:30 Indwelling Cath Urine Culture - Preliminary NO GROWTH Resulted Laboratory Tests 02/11/19 04:05: White Blood Count 20.1H, Red Blood Count 4.23, Hemoglobin 11.7L, Hematocrit 37.5 , Mean Corpuscular Volume 89, Mean Corpuscular Hemoglobin 27.7, Mean Corpuscular Hemoglobin Concent 31.3L, Red Cell Distribution Width 15.3H, Platelet Count 537H, Mean Platelet Volume 5.4L, Neutrophils (%) (Auto) , Lymphocytes (%) (Auto) , Monocytes (%) (Auto) , Eosinophils (%) (Auto) , Basophils (%) (Auto) , Differential Total Cells Counted 100, Neutrophils % ( Manual) 82H, Lymphocytes % (Manual) 11L, Monocytes % (Manual) 7, Eosinophils % ( Manual) 0, Basophils % (Manual) 0, Band Neutrophils 0, Platelet Estimate Adequate, Platelet Morphology Normal, Hypochromasia 1+, Sodium Level 144, Potassium Level 4.0, Chloride Level 100, Carbon Dioxide Level 35H, Anion Gap 9, Blood Urea Nitrogen 82H, Creatinine 2.4H, Estimat Glomerular Filtration Rate , Glucose Level 242H, Calcium Level 8.7, Magnesium Level 2.6H, Total Bilirubin 0.3 , Aspartate Amino Transf (AST/SGOT) 24, Alanine Aminotransferase (ALT/SGPT) 14, Alkaline Phosphatase 126H, Total Protein 6.1L, Albumin 2.5L, Globulin 3.6, Albumin/Globulin Ratio 0.7L Current Medications Medications (Trade) Dose Ordered Sig/Willy Route PRN Reason Start Time Stop Time Status Last Admin Dose Admin Acetaminophen (Tylenol) 650 mg Q6H PRN NG Mild Pain/Temp > 100.5 02/09/19 12:45 03/11/19 12:44 02/09/19 13:03 Albuterol/ Ipratropium (Albuterol/ Ipratropium) 3 ml Q6HRT HHN 02/08/19 13:00 02/13/19 08:59 02/11/19 13:17 Amlodipine Besylate (Norvasc) 5 mg DAILY ORAL 02/09/19 09:00 03/11/19 08:59 02/11/19 09:01 Apixaban (Eliquis) 5 mg BID ORAL 02/08/19 18:00 03/10/19 08:59 02/11/19 09:00 Aspirin (ASA) 81 mg DAILY ORAL 02/09/19 09:00 03/10/19 08:59 02/11/19 09:00 Atorvastatin Calcium (Lipitor) 80 mg BEDTIME ORAL 02/08/19 21:00 03/10/19 20:59 02/10/19 20:45 Ceftriaxone Sodium 1 gm/ Dextrose 50 ml @ 100 mls/hr Q24H IVPB 02/10/19 17:00 02/17/19 16:59 02/10/19 17:48 Clopidogrel Bisulfate (Plavix) 75 mg DAILY ORAL 02/09/19 09:00 03/10/19 08:59 02/11/19 09:00 Hydralazine HCl (Apresoline) 50 mg EVERY 8 HOURS ORAL 02/08/19 14:00 03/10/19 05:59 02/11/19 14:41 Insulin Aspart (NovoLOG) EVERY 4 HOURS SUBQ 02/08/19 21:00 03/10/19 06:29 02/11/19 12:17 Insulin Detemir (Levemir) 18 units BID SUBQ 02/11/19 09:00 03/10/19 20:59 02/11/19 09:21 Lorazepam (Ativan 2mg/ml 1ml) 1 mg Q2H PRN IV For Anxiety 02/08/19 17:15 02/15/19 17:14 02/08/19 17:42 Methylprednisolone Sodium Succinate (Solu-MEDROL) 40 mg DAILY IVP 02/10/19 09:00 03/12/19 08:59 02/11/19 09:00 Metoprolol Tartrate (Lopressor) 50 mg Q6HR ORAL 02/09/19 18:30 03/11/19 18:29 02/11/19 12:23 Pantoprazole (Protonix) 40 mg DAILY IVP 02/08/19 20:45 03/10/19 20:44 02/11/19 09:00 Blu Brink MD Feb 11, 2019 16:11
--- NOTE | 2019-02-11 18:00 | NUR ---
NURSE NOTES: Pt consumed 75% of dinner meal. Currently on nasal cannula at 6L with O2sat at 99%. VS stable. Pt was cleaned, gown/linens changed, and repositioned. Oral care done.
[2019-02-11] MEDS: cefTRIAXone 1 GM in D5W 50 ML IVPB SCH (18:28)
[2019-02-11] MEDS ORDERED: VITAMIN D1000 UNI1 ORAL (18:37)
[2019-02-11] MEDS ORDERED: JANUVIA100 MG ORAL (18:37)
[2019-02-11] MEDS ORDERED: TYLENOL EXTRA500 MG ORAL (18:37)
[2019-02-11] MEDS ORDERED: NITROSTAT0.4 M1 SL (18:37)
[2019-02-11] MEDS ORDERED: FERROUS SULFAT325 MG ORAL (18:37)
[2019-02-11] MEDS ORDERED: ADVAIR 100-501 EACH INH (18:37)
[2019-02-11] MEDS ORDERED: ADVAIR 250-501 EACH INH (18:41)
--- NOTE | 2019-02-11 19:25 | NUR ---
HAND-OFF: Report given to Pennie MORALES. VS stable. Endorsed plan of care.
--- NOTE | 2019-02-11 19:27 | NUR ---
NURSE NOTES: Received bedside report from ANDREW Palacios.Patient stable,no c/o pain,no respiratory distress noted,A-Fib on desk monitor,pt is with N/C @ 6L/min tolerated well,Mask @ night FiO2 40%,skin intact,f/cath in place draining toward gravity,IV asymptomatic,intact on L AC 18G & R AC 20G SL,bed secured in a low safety position,call light within a reach,family at bedside,will continue to monitor and follow POC.
[2019-02-11] MEDS: Atorvastatin 80mg tab ORAL SCH (20:40)
--- NOTE | 2019-02-11 22:47 | NUR ---
NURSE NOTES: Patient stable,tolerated N/C with 6 L/min,no c/o pain no respiratory distress noted.Patient turned and repositioned.
[2019-02-12] VITALS (19 sets, daily range): BP systolic 97–136; BP diastolic 56–70
[2019-02-12] MEDS: Metoprolol Tartrate 50mg tab ORAL SCH ×5 (00:11→18:00)
[2019-02-12] MEDS: NovoLOG Insulin Flexpen SUBQ SCH ×5 (00:36→21:41)
[2019-02-12] MEDS: Albuterol/Ipratropium 3ml neb HHN SCH ×4 (01:24→19:13)
--- NOTE | 2019-02-12 01:54 | NUR ---
NURSE NOTES: Currently maintained on nasal cannula at 6 L/min with O2sat at 98%. VS stable.Oral care provided.
--- NOTE | 2019-02-12 02:30 | Progress Note ---
DATE: 02/11/2019 CARDIOLOGY PROGRESS NOTE SUBJECTIVE: The patient remains in the intensive care unit. She has been extubated. OBJECTIVE: VITAL SIGNS: Blood pressure 101/46, heart rate 75, respiratory rate 18. LUNGS: Coarse breath sounds. Few rhonchi. No wheezes. CARDIAC: Regular rhythm and rate. Normal S1, S2 with a fourth heart sound. ABDOMEN: Soft, nontender. EXTREMITIES: Trace dependent edema. LABORATORY DATA: White count 20, hemoglobin 11.7. Sodium 144, magnesium 2.6, potassium 4, bicarb 35, BUN 82, creatinine 2.4. Albumin 2.5. IMPRESSION: 1. Status post respiratory failure. 2. Paroxysmal atrial fibrillation. 3. Klebsiella urinary tract infection with sepsis. 4. Paroxysmal atrial fibrillation. 5. Acute on chronic diastolic congestive heart failure. 6. COPD exacerbation. 7. Acute on chronic renal failure. RECOMMENDATIONS: 1. Antimicrobials. 2. Respiratory hygiene. 3. Steroid taper. 4. Monitor renal function. 5. Monitor volume status. 6. Recheck chest x-ray. 7. Apixaban for cardioembolic prophylaxis. Dominic Martínez M.D. DR: Jose JOB#: [id number] CC:
--- NOTE | 2019-02-12 04:00 | NUR ---
NURSE NOTES: Pt stable,no c/o pain,oral care provided,clean and dry,reposition every 2 hrs.Pt on Ventury Mask 4L,FiO2 31% tolerated well O2 Sat 91-93%.Charge nurse aware
[2019-02-12 04:34] LABS: HEMATOCRIT 39.5 % (37.0-47.0); HEMOGLOBIN 12.5 G/DL (12.0-16.0); MEAN CORPUSCULAR VOLUME 89 FL (80-99); PLATELET COUNT 536 K/UL (150-450); RED BLOOD COUNT 4.42 M/UL (4.20-5.40); RED CELL DISTRIBUTION WIDTH 15.7 % (11.6-14.8); WHITE BLOOD COUNT 15.9 K/UL (4.8-10.8)
[2019-02-12 04:55] LABS: ANION GAP 5 mmol/L (5-15); BLOOD UREA NITROGEN 66 mg/dL (7-18); CARBON DIOXIDE 38 MMOL/L (21-32); CHLORIDE 101 MMOL/L (98-107); CREATININE 1.6 MG/DL (0.55-1.30); POTASSIUM 3.7 MMOL/L (3.5-5.1); SODIUM 144 MMOL/L (136-145)
[2019-02-12] MEDS: HydrALAZINE 50mg tab ORAL SCH ×3 (06:00→21:42)
--- NOTE | 2019-02-12 06:00 | NUR ---
NURSE NOTES: Pt.sleeping,no s/s of pain,V/S stable,turned and repositioned,will continue to monitor.
--- NOTE | 2019-02-12 07:12 | General Progress Note ---
Assessment/Plan Problem List: (1) Bacteriuria ICD Codes: R82.71 - Bacteriuria SNOMED: 42726174 (2) Uncontrolled diabetes mellitus ICD Codes: E11.65 - Type 2 diabetes mellitus with hyperglycemia SNOMED: 09795406, 942597142 Qualifiers: Qualified Codes: E11.65 - Type 2 diabetes mellitus with hyperglycemia (3) Acute exacerbation of CHF (congestive heart failure) ICD Codes: I50.9 - Heart failure, unspecified SNOMED: 906896975, [id number] Qualifiers: Qualified Codes: I50.9 - Heart failure, unspecified Assessment/Plan: reduce Levemir to 10 units bid change NISS every 4 hours to ac / hs Subjective Allergies: Coded Allergies: SULFA (SULFONAMIDE ANTIBIOTICS) (Unverified Allergy, Unknown, 02/08/19) Uncoded Allergies: SULFA (Allergy, Unknown, 02/07/19) All Systems: reviewed and negative except above Subjective events noted extubated Item Value Date Time Bedside Blood Glucose 91 mg/dl 02/12/19 0444 Bedside Blood Glucose 122 mg/dl H 02/12/19 0036 Bedside Blood Glucose 125 mg/dl H 02/11/19 2041 Bedside Blood Glucose 122 mg/dl H 02/11/19 1800 Bedside Blood Glucose 190 mg/dl H 02/11/19 1217 Bedside Blood Glucose 352 mg/dl H 02/11/19 0921 Bedside Blood Glucose 219 mg/dl H 02/11/19 0457 Objective Last 24 Hour Vital Signs Date Time Temp Pulse Resp B/P (MAP) Pulse Ox O2 Delivery O2 Flow Rate FiO2 02/12/19 07:08 98 Nasal Cannula 4.0 31 02/12/19 07:07 77 19 98 Venturi Mask 4.0 31 02/12/19 07:00 78 16 125/61 (82) 93 02/12/19 07:00 83 17 96 Venturi Mask 4.0 31 02/12/19 06:00 67 12 103/60 (74) 95 02/12/19 06:00 67 103/60 02/12/19 06:00 103/60 02/12/19 05:00 79 12 103/56 (72) 94 02/12/19 04:11 86 02/12/19 04:00 Venturi Mask 6.0 Venturi Mask 02/12/19 04:00 4.0 40 02/12/19 04:00 81 16 118/63 (81) 96 02/12/19 03:00 97.9 87 13 131/70 (90) 97 02/12/19 02:00 85 18 123/57 (79) 95 02/12/19 01:32 78 18 100 Nasal Cannula 4.0 36 02/12/19 01:24 76 18 96 Nasal Cannula 4.0 36 02/12/19 01:00 74 16 123/57 (79) 98 02/12/19 00:11 85 128/66 02/12/19 00:00 81 16 128/66 (86) 98 02/12/19 00:00 Nasal Cannula 6.0 Nasal Cannula 6.0 02/11/19 23:39 77 02/11/19 23:00 75 12 122/51 (74) 96 02/11/19 22:00 98.2 75 15 119/58 (78) 98 02/11/19 22:00 119/58 02/11/19 21:00 69 14 109/64 (79) 99 02/11/19 20:00 6.0 02/11/19 20:00 Nasal Cannula 6.0 Nasal Cannula 6.0 02/11/19 20:00 82 16 107/76 (86) 96 02/11/19 19:59 79 02/11/19 19:48 86 19 97 Nasal Cannula 4.0 36 02/11/19 19:40 98 Nasal Cannula 4.0 36 02/11/19 19:40 87 16 98 Nasal Cannula 4.0 36 02/11/19 19:00 79 11 102/75 (84) 96 02/11/19 18:29 80 116/67 02/11/19 18:00 81 18 111/67 (82) 98 02/11/19 17:00 98.0 80 17 105/48 (67) 96 02/11/19 16:00 78 02/11/19 16:00 Venturi Mask 6.0 Venturi Mask 02/11/19 16:00 76 15 103/60 (74) 98 02/11/19 16:00 4.0 40 02/11/19 15:00 75 11 101/46 (64) 97 02/11/19 14:41 101/57 02/11/19 14:00 76 10 101/57 (72) 86 02/11/19 13:18 96 18 95 Room Air 4.0 36 02/11/19 13:10 84 18 96 Nasal Cannula 4.0 36 02/11/19 13:00 87 13 109/83 (92) 94 02/11/19 12:23 97 116/62 02/11/19 12:18 88 16 116/62 (80) 98 02/11/19 12:00 Mechanical Ventilator 6.0 Nasal Cannula 02/11/19 12:00 78 02/11/19 12:00 98.4 80 14 99/59 (72) 98 02/11/19 12:00 6.0 02/11/19 11:00 83 13 111/60 (77) 99 02/11/19 10:00 86 13 118/58 (78) 99 02/11/19 09:01 88 116/60 02/11/19 09:00 85 14 105/53 (70) 99 02/11/19 08:57 100 Nasal Cannula 4.0 36 02/11/19 08:56 Nasal Cannula 4.0 36 02/11/19 08:00 88 02/11/19 08:00 40 02/11/19 08:00 Mechanical Ventilator 02/11/19 08:00 98.1 81 14 112/59 (76) 100 02/11/19 07:44 88 12 100 Mechanical Ventilator 40 02/11/19 07:37 75 12 100 Mechanical Ventilator 40 02/11/19 07:20 77 15 40 Intake and Output 02/11/19 02/12/19 19:00 07:00 Intake Total 590 ml 300 ml Output Total 755 ml 470 ml Balance -165 ml -170 ml Intake Oral 200 ml 300 ml Free Water 30 ml IV Total 100 ml Tube Feeding 60 ml Other 200 ml Output Urine Total 755 ml 470 ml # Bowel Movements 1 Laboratory Tests 02/12/19 03:45: White Blood Count 15.9H, Red Blood Count 4.42, Hemoglobin 12.5, Hematocrit 39.5 , Mean Corpuscular Volume 89, Mean Corpuscular Hemoglobin 28.2, Mean Corpuscular Hemoglobin Concent 31.5L, Red Cell Distribution Width 15.7H, Platelet Count 536H, Mean Platelet Volume 5.5L, Neutrophils (%) (Auto) , Lymphocytes (%) (Auto) , Monocytes (%) (Auto) , Eosinophils (%) (Auto) , Basophils (%) (Auto) , Sodium Level 144, Potassium Level 3.7, Chloride Level 101 , Carbon Dioxide Level 38H, Anion Gap 5, Blood Urea Nitrogen 66H, Creatinine 1.6H, Estimat Glomerular Filtration Rate , Glucose Level 98#, Calcium Level 9.0 , Pro-B-Type Natriuretic Peptide 2401H Height (Feet): 5 Height (Inches): 4.00 Weight (Pounds): 170 General Appearance: no apparent distress Neck: normal alignment Cardiovascular: normal rate Respiratory/Chest: decreased breath sounds Abdomen: normal bowel sounds Pelvis: normal external exam Edema: 1+ Arm (L), 1+ Arm (R), 1+ Leg (L), 1+ Leg (R), 1+ Pedal (L), 1+ Pedal ( R), 1+ Generalized Objective Current Medications Medications (Trade) Dose Ordered Sig/Willy Route PRN Reason Start Time Stop Time Status Last Admin Dose Admin Acetaminophen (Tylenol) 650 mg Q6H PRN NG Mild Pain/Temp > 100.5 02/09/19 12:45 03/11/19 12:44 02/09/19 13:03 Albuterol/ Ipratropium (Albuterol/ Ipratropium) 3 ml Q6HRT HHN 02/08/19 13:00 02/13/19 08:59 02/12/19 07:06 Amlodipine Besylate (Norvasc) 5 mg DAILY ORAL 02/09/19 09:00 03/11/19 08:59 02/11/19 09:01 Apixaban (Eliquis) 5 mg BID ORAL 02/08/19 18:00 03/10/19 08:59 02/11/19 18:29 Aspirin (ASA) 81 mg DAILY ORAL 02/09/19 09:00 03/10/19 08:59 02/11/19 09:00 Atorvastatin Calcium (Lipitor) 80 mg BEDTIME ORAL 02/08/19 21:00 03/10/19 20:59 02/11/19 20:40 Ceftriaxone Sodium 1 gm/ Dextrose 50 ml @ 100 mls/hr Q24H IVPB 02/10/19 17:00 02/17/19 16:59 02/11/19 18:28 Clopidogrel Bisulfate (Plavix) 75 mg DAILY ORAL 02/09/19 09:00 03/10/19 08:59 02/11/19 09:00 Hydralazine HCl (Apresoline) 50 mg EVERY 8 HOURS ORAL 02/08/19 14:00 03/10/19 05:59 02/11/19 14:41 Insulin Aspart (NovoLOG) EVERY 4 HOURS SUBQ 02/08/19 21:00 03/10/19 06:29 02/12/19 00:36 Insulin Detemir (Levemir) 18 units BID SUBQ 02/11/19 09:00 03/10/19 20:59 02/11/19 18:00 Lorazepam (Ativan 2mg/ml 1ml) 1 mg Q2H PRN IV For Anxiety 02/08/19 17:15 02/15/19 17:14 02/08/19 17:42 Methylprednisolone Sodium Succinate (Solu-MEDROL) 20 mg DAILY IVP 02/12/19 09:00 03/12/19 08:59 Metoprolol Tartrate (Lopressor) 50 mg Q6HR ORAL 02/09/19 18:30 03/11/19 18:29 02/12/19 00:11 Pantoprazole (Protonix) 40 mg DAILY IVP 02/08/19 20:45 03/10/19 20:44 02/11/19 09:00 Garett Shay MD Feb 12, 2019 07:12
--- NOTE | 2019-02-12 07:18 | NUR ---
HAND-OFF: Report given to ANDREW Palacios.Patient stable,sleeping at this moment.
--- NOTE | 2019-02-12 07:30 | NUR ---
NURSE NOTES: Received change of shift report from Pennie MORALES. Pt is asleep, awakens to name/voice, primarily Swedish speaking, understands basic Occitan, able to follow commands. Pt is on 2L of oxygen via nasal cannula with O2sat at 98-100%. lunchroom monitor displays AFib with heart rate fluctuating from 80's-100's. Bounding radial and weak pedal pulses palpated with mild edema on lower extremities noted. Abdomen is large, round, soft, nontender to touch with active bowel sounds in all quadrants. Turner catheter is in place, draining clear/yellow urine. Skin is intact. Peripheral IV access is present on right AC #20G and left AC #18G both saline locks. Bed is locked with three side rails up, in lowest position, head of bed elevated and call light within reach. Will continue to monitor pt and follow plan of care per MD orders and protocol.
[2019-02-12] MEDS ORDERED: Acetaminophen 650mg/20.3ml ORAL PRN (08:45)
[2019-02-12] MEDS ORDERED: Solu-MEDROL 40mg Inj IVP SCH (09:00)
--- NOTE | 2019-02-12 10:00 | NUR ---
NURSE NOTES: Bilateral SCDs were place on lower extremities for DVT prophylaxis per order. Venous duplex is negative. VS stable. AM meds were given and pt assisted with repositioning.
[2019-02-12] MEDS: Pantoprazole Inj IVP SCH (10:22)
--- NOTE | 2019-02-12 10:22 | NUR ---
RD ASSESSMENT & RECOMMENDATIONS SEE CARE ACTIVITY FOR COMPLETE ASSESSMENT DAILY ESTIMATED NEEDS: Needs based on Pulmonary, DM 58.9kg adj 25-30 kcals/kg 5078-8592 total kcals 1-1.5 g protein/kg 59-88 g total protein Fluid per MD, on lasix NUTRITION DIAGNOSIS: 1) Swallowing difficulty r/t respiratory distress as evidenced by s/p intubation, now on NGT feeds.(INACTIVE) 2) Altered nutrition related lab values r/t clinical status as evidenced by elev WBC (21.9-> 15.9), elev pH (7.686-> now wnl), elev BUN (66), elev Creat (2.8-> 1.6), elev BG on adm now improved (424->151), elev BNP (4990-> 2401) CURRENT DIET: CCHO MED PO DIET RECOMMENDATIONS: CCHO LOW ADDITIONAL RECOMMENDATIONS: 1) Monitor tolerance to oral diet , % po intake 2) Monitor lytes, BG daily 3) On lasix, daily calibrated bed scale wts for accuracy 4) CLIENT SUPPORT ASSOCIATE eval upon extubation for appropriate texture Per RN pt swallows pills without difficulty
[2019-02-12] MEDS: Eliquis 5mg tablet ORAL SCH ×3 (10:23→18:00)
[2019-02-12] MEDS: Aspirin Baby 81mg ORAL SCH (10:23)
[2019-02-12] MEDS: Levemir Flexpen SUBQ SCH ×2 (10:56→17:27)
--- NOTE | 2019-02-12 11:26 | Diagnostic Imaging Report ---
Indication: Dyspnea Comparison: 02/10/2019 A single view chest radiograph was obtained. Findings: Pulmonary vascular congestion suspected. Lung volumes are low. Patient has been extubated. The left lung base is obscured. Pacemaker is noted. Bones are osteopenic. IMPRESSION: Suspected pulmonary vascular congestion
--- NOTE | 2019-02-12 11:27 | NUR ---
CLUB FORMERAMMUNITION COMPONENTS INSPECTOR SI: RESP FAILURE S/P EXTUBATION,UTI,CHF T. 98.4 HR 90 RR 18 B/P 125/56 VM FIO2 30% PH 7.41 PCO2 47.9 PO2 66.4 HCO3 31.4 O2 SAT 91.7 WBC 15.9 CO2 38 BUN 66 CR 1.6 BNP 2451 IS: SOLU MEDROL IV CEFTRIAXONE IV ASA INSULIN SUBC ICU STATUS
--- NOTE | 2019-02-12 12:00 | NUR ---
NURSE NOTES: Pt is resting with stable VS. Oral care done and pt repositioned. Pt remains on 2L nasal cannula with O2sat at 100%. director of first impressions displays Afib with heart rate in the 80's. Pt is afebrile.
--- NOTE | 2019-02-12 13:22 | Infectious Diseases Prog Note ---
Assessment/Plan Assessment/Plan ASSESSMENT AND PLAN: 1. klebsiella uti, sepsis, chf, respiratory failure leukocytosis, fevers - rocephin - day # 4 abx - extubated - monitor labs and chest x-ray - icu care 2. Acute renal failure. 3. Anemia. 4. CHF. 5. Respiratory failure. 6. ICU care. 7. Diabetes. 8. Possible hypertension. 9. Blood sugar treatment per Endocrinology and primary. 10. Vent care per Dr. Brink and Dr. Sandoval. 11. Falls. 12. Sick sinus syndrome, pacemaker. 13. Sleep apnea, COPD. 14. Anemia. 15. Diastolic heart disease. 16. Coronary artery disease. 17. CHF. 18. Dyslipidemia. 19. Neuropathy. 20. Obesity. 21. Vitamin D deficiency. 22. Allergies to sulfa drugs. 23. MAR is noted. 24. Case was discussed with RN. 25. Social history negative. 26. Family history noncontributory. 27. Continue treatment per primary consultants. Subjective Constitutional: Reports: fatigue, other - extbated, responsive ; Denies: fever HEENT: Reports: congestion Respiratory: Reports: shortness of breath Cardiovascular: Denies: chest pain Gastrointestinal/Abdominal: Denies: nausea, vomiting, diarrhea Genitourinary: Reports: other - + salas Neurologic: Denies: headache Skin: Denies: rash Hematologic: Denies: bleeding Musculoskeletal: Denies: pain Allergies: Coded Allergies: SULFA (SULFONAMIDE ANTIBIOTICS) (Unverified Allergy, Unknown, 02/08/19) Uncoded Allergies: SULFA (Allergy, Unknown, 02/07/19) Objective Vital Signs Last 24 Hour Vital Signs Date Time Temp Pulse Resp B/P (MAP) Pulse Ox O2 Delivery O2 Flow Rate FiO2 02/12/19 12:50 85 12 97 Nasal Cannula 2.0 28 02/12/19 12:42 89 14 96 Nasal Cannula 2.0 28 02/12/19 12:00 4.0 40 02/12/19 11:00 93 12 136/66 (89) 89 02/12/19 10:22 77 125/61 02/12/19 10:00 91 11 125/59 (81) 95 02/12/19 09:00 90 13 110/68 (82) 92 02/12/19 08:00 4.0 40 02/12/19 08:00 Venturi Mask 6.0 Venturi Mask 02/12/19 08:00 98.4 90 18 125/56 (79) 93 02/12/19 07:08 98 Nasal Cannula 4.0 31 02/12/19 07:07 77 19 98 Venturi Mask 4.0 31 02/12/19 07:00 78 16 125/61 (82) 93 02/12/19 07:00 83 17 96 Venturi Mask 4.0 31 02/12/19 06:00 67 12 103/60 (74) 95 02/12/19 06:00 67 103/60 02/12/19 06:00 103/60 02/12/19 05:00 79 12 103/56 (72) 94 02/12/19 04:11 86 02/12/19 04:00 Venturi Mask 6.0 Venturi Mask 02/12/19 04:00 4.0 40 02/12/19 04:00 81 16 118/63 (81) 96 02/12/19 03:00 97.9 87 13 131/70 (90) 97 02/12/19 02:00 85 18 123/57 (79) 95 02/12/19 01:32 78 18 100 Nasal Cannula 4.0 36 02/12/19 01:24 76 18 96 Nasal Cannula 4.0 36 02/12/19 01:00 74 16 123/57 (79) 98 02/12/19 00:11 85 128/66 02/12/19 00:00 81 16 128/66 (86) 98 02/12/19 00:00 Nasal Cannula 6.0 Nasal Cannula 6.0 02/11/19 23:39 77 02/11/19 23:00 75 12 122/51 (74) 96 02/11/19 22:00 98.2 75 15 119/58 (78) 98 02/11/19 22:00 119/58 02/11/19 21:00 69 14 109/64 (79) 99 02/11/19 20:00 6.0 02/11/19 20:00 Nasal Cannula 6.0 Nasal Cannula 6.0 02/11/19 20:00 82 16 107/76 (86) 96 02/11/19 19:59 79 02/11/19 19:48 86 19 97 Nasal Cannula 4.0 36 02/11/19 19:40 98 Nasal Cannula 4.0 36 02/11/19 19:40 87 16 98 Nasal Cannula 4.0 36 02/11/19 19:00 79 11 102/75 (84) 96 02/11/19 18:29 80 116/67 02/11/19 18:00 81 18 111/67 (82) 98 02/11/19 17:00 98.0 80 17 105/48 (67) 96 02/11/19 16:00 78 02/11/19 16:00 Venturi Mask 6.0 Venturi Mask 02/11/19 16:00 76 15 103/60 (74) 98 02/11/19 16:00 4.0 40 02/11/19 15:00 75 11 101/46 (64) 97 02/11/19 14:41 101/57 02/11/19 14:00 76 10 101/57 (72) 86 02/11/19 13:18 96 18 95 Room Air 4.0 36 Height (Feet): 5 Height (Inches): 4.00 Weight (Pounds): 170 General Appearance: no acute distress HEENT: normocephalic, atraumatic, anicteric, mucous membranes moist Respiratory/Chest: no accessory muscle use, crackles/rales, rhonchi - bilaterally Cardiovascular: normal rate, regular rhythm, no gallop/murmur, no JVD Abdomen: normal bowel sounds, soft, non tender, no organomegaly, non distended Genitourinary: other - + salas - urine clearer Extremities: no cyanosis Skin: no rash Neurologic/Psychiatric: manager special events II-XII grossly normal, alert, responsive Lymphatic: no neck adenopathy Musculoskeletal: no effusion Objective Chest x-ray - 02/12/19 - Comparison: 02/10/2019 A single view chest radiograph was obtained. Findings: Pulmonary vascular congestion suspected. Lung volumes are low. Patient has been extubated. The left lung base is obscured. Pacemaker is noted. Bones are osteopenic. IMPRESSION: Suspected pulmonary vascular congestion Microbiology Date/Time Source Procedure Growth Status 02/10/19 09:15 Blood Blood Culture - Preliminary NO GROWTH AFTER 24 HOURS Resulted 02/10/19 09:00 Blood Blood Culture - Preliminary NO GROWTH AFTER 24 HOURS Resulted 02/10/19 10:30 Sputum Induced Gram Stain - Final Resulted 02/10/19 10:30 Sputum Induced Sputum Culture - Preliminary NORMAL UPPER RESPIRATORY ROHAN PRESENT Resulted 02/10/19 10:30 Indwelling Cath Urine Culture - Preliminary NO GROWTH AFTER 24 HOURS Resulted Laboratory Tests Test 02/12/19 03:45 02/12/19 08:10 White Blood Count 15.9 K/UL (4.8-10.8) H Red Blood Count 4.42 M/UL (4.20-5.40) Hemoglobin 12.5 G/DL (12.0-16.0) Hematocrit 39.5 % (37.0-47.0) Mean Corpuscular Volume 89 FL (80-99) Mean Corpuscular Hemoglobin 28.2 PG (27.0-31.0) Mean Corpuscular Hemoglobin Concent 31.5 G/DL (32.0-36.0) L Red Cell Distribution Width 15.7 % (11.6-14.8) H Platelet Count 536 K/UL (150-450) H Mean Platelet Volume 5.5 FL (6.5-10.1) L Neutrophils (%) (Auto) % (45.0-75.0) Lymphocytes (%) (Auto) % (20.0-45.0) Monocytes (%) (Auto) % (1.0-10.0) Eosinophils (%) (Auto) % (0.0-3.0) Basophils (%) (Auto) % (0.0-2.0) Sodium Level 144 MMOL/L (136-145) Potassium Level 3.7 MMOL/L (3.5-5.1) Chloride Level 101 MMOL/L (98-107) Carbon Dioxide Level 38 MMOL/L (21-32) H Anion Gap 5 mmol/L (5-15) Blood Urea Nitrogen 66 mg/dL (7-18) H Creatinine 1.6 MG/DL (0.55-1.30) H Estimat Glomerular Filtration Rate mL/min (>60) Glucose Level 98 MG/DL (74-106) # Calcium Level 9.0 MG/DL (8.5-10.1) Pro-B-Type Natriuretic Peptide 2401 pg/mL (0-125) H Arterial Blood pH 7.417 (7.350-7.450) Arterial Blood Partial Pressure CO2 49.9 mmHg (35.0-45.0) H Arterial Blood Partial Pressure O2 66.4 mmHg (75.0-100.0) L Arterial Blood HCO3 31.4 mmol/L (22.0-26.0) H Arterial Blood Oxygen Saturation 91.7 % (95-100) L Arterial Blood Base Excess 5.8 (-2-2) H Ector Test Positive Current Medications Medications (Trade) Dose Ordered Sig/Willy Route PRN Reason Start Time Stop Time Status Last Admin Dose Admin Acetaminophen (Tylenol) 650 mg Q6H PRN ORAL Mild Pain/Temp > 100.5 02/12/19 08:45 03/11/19 12:44 Albuterol/ Ipratropium (Albuterol/ Ipratropium) 3 ml Q6HRT HHN 02/08/19 13:00 02/13/19 08:59 02/12/19 12:49 Amlodipine Besylate (Norvasc) 5 mg DAILY ORAL 02/09/19 09:00 03/11/19 08:59 02/12/19 10:22 Apixaban (Eliquis) 5 mg BID ORAL 02/08/19 18:00 03/10/19 08:59 02/12/19 10:23 Aspirin (ASA) 81 mg DAILY ORAL 02/09/19 09:00 03/10/19 08:59 02/12/19 10:23 Atorvastatin Calcium (Lipitor) 80 mg BEDTIME ORAL 02/08/19 21:00 03/10/19 20:59 02/11/19 20:40 Ceftriaxone Sodium 1 gm/ Dextrose 50 ml @ 100 mls/hr Q24H IVPB 02/10/19 17:00 02/17/19 16:59 02/11/19 18:28 Clopidogrel Bisulfate (Plavix) 75 mg DAILY ORAL 02/09/19 09:00 03/10/19 08:59 02/12/19 10:22 Dextrose (Dextrose 50%) 25 ml Q30M PRN IV Hypoglycemia 02/12/19 07:15 03/14/19 07:14 Dextrose (Dextrose 50%) 50 ml Q30M PRN IV Hypoglycemia 02/12/19 07:15 03/14/19 07:14 Hydralazine HCl (Apresoline) 50 mg EVERY 8 HOURS ORAL 02/08/19 14:00 03/10/19 05:59 02/11/19 14:41 Insulin Aspart (NovoLOG) BEFORE MEALS AND HS SUBQ 02/12/19 11:30 03/14/19 11:29 02/12/19 10:57 Insulin Detemir (Levemir) 10 units BID SUBQ 02/12/19 09:00 03/10/19 20:59 02/12/19 10:56 Lorazepam (Ativan 2mg/ml 1ml) 1 mg Q2H PRN IV For Anxiety 02/08/19 17:15 02/15/19 17:14 02/08/19 17:42 Methylprednisolone Sodium Succinate (Solu-MEDROL) 20 mg DAILY IVP 02/12/19 09:00 03/12/19 08:59 02/12/19 10:22 Metoprolol Tartrate (Lopressor) 50 mg Q6HR ORAL 02/09/19 18:30 03/11/19 18:29 02/12/19 00:11 Pantoprazole (Protonix) 40 mg DAILY IVP 02/08/19 20:45 03/10/19 20:44 02/12/19 10:22 Jose Cutler MD Feb 12, 2019 13:21
--- NOTE | 2019-02-12 13:32 | NUR ---
*-* INSURANCE *-* ALL CLINICALS AND REVIEWS HAVE BEEN FAXED TO: [facility] P: [phone] F: [phone] (FAX CLINICALS)
--- NOTE | 2019-02-12 14:00 | NUR ---
NURSE NOTES: VS stable. Pt is resting in no apparent distress. Pt was repositioned.
[2019-02-12] MEDS ORDERED: NS 275ml ONE (14:08)
--- NOTE | 2019-02-12 16:30 | NUR ---
NURSE NOTES: Pt was cleaned, linens/gown changed, and pt repositioned. VS stable. Order in place to transfer pt to tele per MD order. Awaiting for bed availability.
[2019-02-12] MEDS: cefTRIAXone 1 GM in D5W 50 ML IVPB SCH (17:25)
[2019-02-12] MEDS ORDERED: Levemir Flexpen SUBQ SCH (18:00)
--- NOTE | 2019-02-12 18:00 | NUR ---
TRANSFER TO FLOOR: Patient transferred to Tele from ICU via hospital bed. Report given to Pollo MORALES. Pt was transferred while being monitored on tele monitor, VS stable. Pt's belonging's list was checked and signed with the receiving nurse in front of the pt. Pt's family was informed regarding the transfer. Endorsed plan of care.
--- NOTE | 2019-02-12 18:05 | NUR ---
NURSE NOTES: Received patient from ICU to TELE Rm 202-2. Received report from Suzanne MORALES. Patient denies any pain, on 2L NC and breathing is even and unlabored Patient was transferred with cooler supervisor. All patient's belonging accounted for and signed by the two nurses. Bed is on lowest level, brakes engaged for safety. Call light is within reach, fall risk precaution in place, bed alarm on. Will continue with the plan of care.
[2019-02-12] MEDS ORDERED: LORazepam Inj 2mg/ml 1ml IV PRN (19:15)
--- NOTE | 2019-02-12 19:48 | NUR ---
HAND-OFF: Report given to ANDREW John. Patient is in stable condition.
--- NOTE | 2019-02-12 20:01 | NUR ---
NURSE NOTES: Received report from ANDREW Abad. Patient is awake lying semi-neal's watching TV; resting comfortably. No signs of acute distress noted; denies pain at this time. AOx3-4; able to make needs known. Primarily Indonesian speaking. Checked IV sites; patent and flushed. No erythema, bleeding, or infiltration noted. Turner catheter draining well to gravity. Bed at lowest position, brakes on, siderails up x3. Call light within reach. Will continue to monitor.
[2019-02-12] MEDS: Atorvastatin 80mg tab ORAL SCH (21:42)
[2019-02-13] VITALS: BP 107/51
[2019-02-13] MEDS: Metoprolol Tartrate 50mg tab ORAL SCH ×4 (00:40→18:17)
[2019-02-13] MEDS: Albuterol/Ipratropium 3ml neb HHN SCH ×2 (00:54→07:16)
--- NOTE | 2019-02-13 01:45 | Progress Note ---
DATE: 02/12/2019 CARDIOLOGY PROGRESS NOTE SUBJECTIVE: The patient is extubated for over 24 hours, in no respiratory distress. OBJECTIVE: VITAL SIGNS: Blood pressure 125/61, pulse 78, respiratory rate 16. LUNGS: Few rhonchi. HEART: Regular rhythm and rate. Normal S1, S2. ABDOMEN: Soft. EXTREMITIES: No edema. DIAGNOSTIC AND LABORATORY DATA: Chest x-ray reveals pulmonary vascular congestion. White count is 15.9, hemoglobin 12.5. Sodium 144, potassium 3.7, BUN 66, creatinine 1.6. Pro-natriuretic peptide has improved to 2400. IMPRESSION: 1. Status post respiratory failure. 2. Healthcare-acquired pneumonia. 3. Acute on chronic diastolic congestive heart failure. 4. Acute on chronic renal failure. 5. Insulin-requiring diabetes mellitus. PLAN: Resume diuresis. Monitor volume status and cardiorenal parameters closely. Continue cautious titration of antihypertension and anti-failure regimen. Steroid taper per sub arc operator. Trend natriuretic peptide assay. Dominic Martínez M.D. DR: MIMA JOB#: [id number] CC:
--- NOTE | 2019-02-13 03:56 | NUR ---
NURSE NOTES: Patient is awake lying semi-neal's; resting comfortably. No signs of acute distress noted; denies pain at this time. On 2L nasal cannula.
[2019-02-13 04:00] VITALS: BP 111/58
[2019-02-13] MEDS: HydrALAZINE 50mg tab ORAL SCH ×3 (06:00→20:55)
[2019-02-13 06:08] LABS: BASOPHILS % (AUTO) 0.4 % (0.0-2.0); EOSINOPHILS % (AUTO) 0.3 % (0.0-3.0); HEMATOCRIT 35.7 % (37.0-47.0); HEMOGLOBIN 10.9 G/DL (12.0-16.0); MEAN CORPUSCULAR VOLUME 91 FL (80-99); MONOCYTES % (AUTO) 8.1 % (1.0-10.0); NEUTROPHILS % (AUTO) 81.1 % (45.0-75.0); PLATELET COUNT 480 K/UL (150-450); RED BLOOD COUNT 3.94 M/UL (4.20-5.40); RED CELL DISTRIBUTION WIDTH 15.6 % (11.6-14.8); WHITE BLOOD COUNT 10.8 K/UL (4.8-10.8)
[2019-02-13 06:25] LABS: ALANINE AMINOTRANSFERASE 14 U/L (12-78); ALBUMIN 2.5 G/DL (3.4-5.0); ALBUMIN/GLOBULIN RATIO 0.6 (1.0-2.7); ALKALINE PHOSPHATASE 121 U/L (46-116); ANION GAP 4 mmol/L (5-15); ASPARTATE AMINO TRANSFERASE 19 U/L (15-37); BILIRUBIN,TOTAL 0.3 MG/DL (0.2-1.0); BLOOD UREA NITROGEN 55 mg/dL (7-18); CALCIUM 8.5 MG/DL (8.5-10.1); CARBON DIOXIDE 37 MMOL/L (21-32); CHLORIDE 98 MMOL/L (98-107); CREATININE 1.8 MG/DL (0.55-1.30); SODIUM 139 MMOL/L (136-145)
[2019-02-13] MEDS: NovoLOG Insulin Flexpen SUBQ SCH ×4 (06:25→21:00)
--- NOTE | 2019-02-13 07:19 | General Progress Note ---
Assessment/Plan Problem List: (1) Bacteriuria ICD Codes: R82.71 - Bacteriuria SNOMED: 83596336 (2) Uncontrolled diabetes mellitus ICD Codes: E11.65 - Type 2 diabetes mellitus with hyperglycemia SNOMED: 29237096, 405098648 Qualifiers: Qualified Codes: E11.65 - Type 2 diabetes mellitus with hyperglycemia (3) Acute exacerbation of CHF (congestive heart failure) ICD Codes: I50.9 - Heart failure, unspecified SNOMED: 389173606, [id number] Qualifiers: Qualified Codes: I50.9 - Heart failure, unspecified Assessment/Plan: increase Levemir to 12 units bid add Januvia 50 mg daily add Starlix 120 mg ac tid continue to hold Metformin due to elevated Cr continue NISS ac / hs Subjective Allergies: Coded Allergies: SULFA (SULFONAMIDE ANTIBIOTICS) (Unverified Allergy, Unknown, 02/08/19) Uncoded Allergies: SULFA (Allergy, Unknown, 02/07/19) All Systems: reviewed and negative except above Subjective events noted transferred out of ICU glucose values are elevated Item Value Date Time Bedside Blood Glucose 257 mg/dl H 02/13/19 0630 Bedside Blood Glucose 313 mg/dl H 02/12/19 2141 Bedside Blood Glucose 261 mg/dl H 02/12/19 1727 Bedside Blood Glucose 116 mg/dl 02/12/19 1200 Bedside Blood Glucose 116 mg/dl 02/12/19 1057 Bedside Blood Glucose 91 mg/dl 02/12/19 0444 Objective Last 24 Hour Vital Signs Date Time Temp Pulse Resp B/P (MAP) Pulse Ox O2 Delivery O2 Flow Rate FiO2 02/13/19 06:24 92 111/58 02/13/19 06:00 111/58 02/13/19 04:00 92 02/13/19 04:00 97.4 98 18 111/58 (75) 95 02/13/19 01:01 78 16 98 Nasal Cannula 2.0 28 02/13/19 00:54 75 18 96 Nasal Cannula 4.0 36 02/13/19 00:40 83 107/51 02/13/19 00:00 83 02/13/19 00:00 98.1 88 18 107/51 (69) 96 02/12/19 21:42 113/57 02/12/19 21:00 Nasal Cannula 2.0 02/12/19 20:00 97.2 102 18 113/57 (75) 96 02/12/19 20:00 101 02/12/19 19:23 88 18 99 Nasal Cannula 2.0 28 02/12/19 19:22 96 Nasal Cannula 2.0 28 02/12/19 19:13 84 16 96 Nasal Cannula 2.0 28 02/12/19 17:00 98.4 108 14 104/59 (74) 95 02/12/19 16:00 Venturi Mask 6.0 Venturi Mask 02/12/19 16:00 113 02/12/19 16:00 108 14 104/59 (74) 94 02/12/19 16:00 4.0 40 02/12/19 15:00 111 20 117/61 (79) 94 02/12/19 14:58 140 117/69 02/12/19 14:55 117/69 02/12/19 14:00 119 21 111/58 (75) 91 02/12/19 13:00 114 19 97/68 (78) 92 02/12/19 12:50 85 12 97 Nasal Cannula 2.0 28 02/12/19 12:42 89 14 96 Nasal Cannula 2.0 28 02/12/19 12:00 4.0 40 02/12/19 12:00 85 02/12/19 12:00 Venturi Mask 6.0 Venturi Mask 02/12/19 12:00 98.0 88 14 117/69 (85) 96 02/12/19 11:00 93 12 136/66 (89) 89 02/12/19 10:22 77 125/61 02/12/19 10:00 91 11 125/59 (81) 95 02/12/19 09:00 90 13 110/68 (82) 92 02/12/19 08:00 4.0 40 02/12/19 08:00 88 02/12/19 08:00 Venturi Mask 6.0 Venturi Mask 02/12/19 08:00 98.4 90 18 125/56 (79) 93 Intake and Output 02/12/19 02/13/19 19:00 07:00 Intake Total 550 ml Output Total 420 ml Balance 130 ml Intake Oral 450 ml IV Total 100 ml Output Urine Total 420 ml Laboratory Tests 02/12/19 08:10: Arterial Blood pH 7.417, Arterial Blood Partial Pressure CO2 49.9H, Arterial Blood Partial Pressure O2 66.4L, Arterial Blood HCO3 31.4H, Arterial Blood Oxygen Saturation 91.7L, Arterial Blood Base Excess 5.8H, Ector Test Positive 02/13/19 05:27: White Blood Count 10.8, Red Blood Count 3.94L, Hemoglobin 10.9L, Hematocrit 35.7L, Mean Corpuscular Volume 91, Mean Corpuscular Hemoglobin 27.7, Mean Corpuscular Hemoglobin Concent 30.6L, Red Cell Distribution Width 15.6H, Platelet Count 480H, Mean Platelet Volume 5.7L, Neutrophils (%) (Auto) 81.1H, Lymphocytes (%) (Auto) 10.0L, Monocytes (%) (Auto) 8.1, Eosinophils (%) (Auto) 0.3, Basophils (%) (Auto) 0.4, Sodium Level 139, Potassium Level 4.0, Chloride Level 98, Carbon Dioxide Level 37H, Anion Gap 4L, Blood Urea Nitrogen 55H, Creatinine 1.8H, Estimat Glomerular Filtration Rate , Glucose Level 296#H, Calcium Level 8.5, Total Bilirubin 0.3, Aspartate Amino Transf (AST/SGOT) 19, Alanine Aminotransferase (ALT/SGPT) 14, Alkaline Phosphatase 121H, Total Protein 6.4, Albumin 2.5L, Globulin 3.9, Albumin/Globulin Ratio 0.6L Height (Feet): 5 Height (Inches): 4.00 Weight (Pounds): 177 General Appearance: no apparent distress Neck: normal alignment Cardiovascular: normal rate Respiratory/Chest: decreased breath sounds Abdomen: normal bowel sounds Pelvis: normal external exam Objective Current Medications Medications (Trade) Dose Ordered Sig/Willy Route PRN Reason Start Time Stop Time Status Last Admin Dose Admin Acetaminophen (Tylenol) 650 mg Q6H PRN ORAL Mild Pain/Temp > 100.5 02/12/19 18:15 03/11/19 18:14 Albuterol/ Ipratropium (Albuterol/ Ipratropium) 3 ml Q6HRT HHN 02/12/19 19:00 02/13/19 08:59 02/13/19 07:16 Amlodipine Besylate (Norvasc) 5 mg DAILY ORAL 02/13/19 09:00 03/11/19 08:59 Apixaban (Eliquis) 5 mg BID ORAL 02/12/19 18:00 03/10/19 08:59 Aspirin (ASA) 81 mg DAILY ORAL 02/13/19 09:00 03/10/19 08:59 Atorvastatin Calcium (Lipitor) 80 mg BEDTIME ORAL 02/12/19 21:00 03/10/19 20:59 02/12/19 21:42 Ceftriaxone Sodium 1 gm/ Dextrose 50 ml @ 100 mls/hr Q24H IVPB 02/13/19 17:00 02/17/19 16:59 Clopidogrel Bisulfate (Plavix) 75 mg DAILY ORAL 02/13/19 09:00 03/10/19 08:59 Dextrose (Dextrose 50%) 25 ml Q30M PRN IV Hypoglycemia 02/12/19 18:15 03/14/19 07:14 Dextrose (Dextrose 50%) 50 ml Q30M PRN IV Hypoglycemia 02/12/19 18:15 03/14/19 07:14 Hydralazine HCl (Apresoline) 50 mg EVERY 8 HOURS ORAL 02/12/19 22:00 03/10/19 05:59 02/12/19 21:42 Insulin Aspart (NovoLOG) BEFORE MEALS AND HS SUBQ 02/12/19 21:00 03/14/19 11:29 02/13/19 06:25 Insulin Detemir (Levemir) 10 units BID SUBQ 02/12/19 18:00 03/10/19 20:59 Lorazepam (Ativan 2mg/ml 1ml) 1 mg Q2H PRN IV For Anxiety 02/12/19 19:15 02/15/19 17:14 Methylprednisolone Sodium Succinate (Solu-MEDROL) 20 mg DAILY IVP 02/13/19 09:00 03/12/19 08:59 Metoprolol Tartrate (Lopressor) 50 mg Q6HR ORAL 02/12/19 18:00 03/11/19 18:29 02/13/19 06:24 Pantoprazole (Protonix) 40 mg DAILY IVP 02/13/19 09:00 03/10/19 20:44 Garett Shay MD Feb 13, 2019 07:19
[2019-02-13] MEDS ORDERED: sitaGLIPtin 50mg tab ORAL SCH (07:30)
--- NOTE | 2019-02-13 07:40 | NUR ---
HAND-OFF: Report given to ANDREW Gutierrez. Patient is awake lying high neal's; eating breakfast. Turner catheter draining well to gravity. In stable condition.
--- NOTE | 2019-02-13 07:41 | NUR ---
NURSE NOTES: Received pt from ANDREW John. Patient is resting in stable condition. Pt is A/Ox3, Belarusian speaking. phototypesetting equipment monitor is in placed, IV site intact, asymptomatic and patent. Bed is in the lowest position with two side rails up and locked.Urinary Catheter in place and patent. Breathing unlabored with 2 liter Nasal Cannula. Call light and bed side table within reach. No signs and symptoms of acute distress noted at this time. Will continue plan of care.
[2019-02-13 08:00] VITALS: BP 118/74
[2019-02-13] MEDS: Eliquis 5mg tablet ORAL SCH ×2 (08:12→18:17)
[2019-02-13] MEDS: Aspirin Baby 81mg ORAL SCH (08:13)
--- NOTE | 2019-02-13 08:58 | Diagnostic Imaging Report ---
APPROVED REPORT CPT Code: 70632 Present Symptoms Comments: Screening BILATERAL: Imaging reveals a patent deep venous system bilaterally. There is no evidence of thrombus within the femoral, popliteal or tibial segments. The greater saphenous veins are also within normal limits. Doppler indicates normal spontaneous flow within these segments.
[2019-02-13] MEDS ORDERED: Pantoprazole Inj IVP SCH (09:00)
[2019-02-13] MEDS ORDERED: Solu-MEDROL 40mg Inj IVP SCH (09:00)
[2019-02-13] MEDS: Levemir Flexpen SUBQ SCH ×2 (09:07→18:19)
[2019-02-13 12:00] VITALS: BP 119/59
[2019-02-13] MEDS: cefTRIAXone 1 GM in NS 55 ML IVPB SCH (12:38)
--- NOTE | 2019-02-13 12:53 | Pulmonology Progress Note ---
Assessment/Plan Assessment/Plan 1. Congestive heart failure. 2. Diabetes, out of control. 3. Altered mental status due to CO2 narcosis 4. COPD with resp failure 5. Sleep apnea. 6. Atrial fibrillation, not on anticoagulants. 7. Coronary heart disease. 8. Aortic atherosclerosis. 9. 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, resolved no distress feed PO steroid taper PO AC per cardiology PT eval snf soon Subjective Constitutional: Reports: no symptoms Allergies: Coded Allergies: SULFA (SULFONAMIDE ANTIBIOTICS) (Unverified Allergy, Unknown, 02/08/19) Uncoded Allergies: SULFA (Allergy, Unknown, 02/07/19) Objective Last 24 Hour Vital Signs Date Time Temp Pulse Resp B/P (MAP) Pulse Ox O2 Delivery O2 Flow Rate FiO2 02/13/19 12:00 97.7 93 20 119/59 (79) 95 02/13/19 11:57 97 02/13/19 11:45 104 119/59 02/13/19 09:00 Nasal Cannula 2.0 Nasal Cannula 2.0 02/13/19 08:12 86 118/74 02/13/19 08:00 97.6 86 20 118/74 (89) 96 02/13/19 07:45 94 02/13/19 07:26 73 17 98 Nasal Cannula 2.0 28 02/13/19 07:16 96 Nasal Cannula 2.0 28 02/13/19 07:16 70 18 96 Nasal Cannula 2.0 28 02/13/19 06:24 92 111/58 02/13/19 06:00 111/58 02/13/19 04:00 92 02/13/19 04:00 97.4 98 18 111/58 (75) 95 02/13/19 01:01 78 16 98 Nasal Cannula 2.0 28 02/13/19 00:54 75 18 96 Nasal Cannula 4.0 36 02/13/19 00:40 83 107/51 02/13/19 00:00 83 02/13/19 00:00 98.1 88 18 107/51 (69) 96 02/12/19 21:42 113/57 02/12/19 21:00 Nasal Cannula 2.0 02/12/19 20:00 97.2 102 18 113/57 (75) 96 02/12/19 20:00 101 02/12/19 19:23 88 18 99 Nasal Cannula 2.0 28 02/12/19 19:22 96 Nasal Cannula 2.0 28 02/12/19 19:13 84 16 96 Nasal Cannula 2.0 28 02/12/19 17:00 98.4 108 14 104/59 (74) 95 02/12/19 16:00 Venturi Mask 6.0 Venturi Mask 02/12/19 16:00 113 02/12/19 16:00 108 14 104/59 (74) 94 02/12/19 16:00 4.0 40 02/12/19 15:00 111 20 117/61 (79) 94 02/12/19 14:58 140 117/69 02/12/19 14:55 117/69 02/12/19 14:00 119 21 111/58 (75) 91 02/12/19 13:00 114 19 97/68 (78) 92 Intake and Output 02/12/19 02/13/19 19:00 07:00 Intake Total 550 ml 500 ml Output Total 420 ml 800 ml Balance 130 ml -300 ml Intake Oral 450 ml 500 ml IV Total 100 ml Output Urine Total 420 ml 800 ml General Appearance: no acute distress HEENT: atraumatic Respiratory/Chest: lungs clear Cardiovascular: normal rate Laboratory Tests 02/13/19 05:27: White Blood Count 10.8, Red Blood Count 3.94L, Hemoglobin 10.9L, Hematocrit 35.7L, Mean Corpuscular Volume 91, Mean Corpuscular Hemoglobin 27.7, Mean Corpuscular Hemoglobin Concent 30.6L, Red Cell Distribution Width 15.6H, Platelet Count 480H, Mean Platelet Volume 5.7L, Neutrophils (%) (Auto) 81.1H, Lymphocytes (%) (Auto) 10.0L, Monocytes (%) (Auto) 8.1, Eosinophils (%) (Auto) 0.3, Basophils (%) (Auto) 0.4, Sodium Level 139, Potassium Level 4.0, Chloride Level 98, Carbon Dioxide Level 37H, Anion Gap 4L, Blood Urea Nitrogen 55H, Creatinine 1.8H, Estimat Glomerular Filtration Rate , Glucose Level 296#H, Calcium Level 8.5, Total Bilirubin 0.3, Aspartate Amino Transf (AST/SGOT) 19, Alanine Aminotransferase (ALT/SGPT) 14, Alkaline Phosphatase 121H, Total Protein 6.4, Albumin 2.5L, Globulin 3.9, Albumin/Globulin Ratio 0.6L Current Medications Medications (Trade) Dose Ordered Sig/Willy Route PRN Reason Start Time Stop Time Status Last Admin Dose Admin Acetaminophen (Tylenol) 650 mg Q6H PRN ORAL Mild Pain/Temp > 100.5 02/12/19 18:15 03/11/19 18:14 Amlodipine Besylate (Norvasc) 5 mg DAILY ORAL 02/13/19 09:00 03/11/19 08:59 02/13/19 08:12 Apixaban (Eliquis) 5 mg BID ORAL 02/12/19 18:00 03/10/19 08:59 02/13/19 08:12 Aspirin (ASA) 81 mg DAILY ORAL 02/13/19 09:00 03/10/19 08:59 02/13/19 08:13 Atorvastatin Calcium (Lipitor) 80 mg BEDTIME ORAL 02/12/19 21:00 03/10/19 20:59 02/12/19 21:42 Ceftriaxone Sodium 1 gm/ Sodium Chloride 55 ml @ 110 mls/hr DAILY IVPB 02/13/19 12:00 02/17/19 23:00 02/13/19 12:38 Clopidogrel Bisulfate (Plavix) 75 mg DAILY ORAL 02/13/19 09:00 03/10/19 08:59 02/13/19 08:12 Dextrose (Dextrose 50%) 25 ml Q30M PRN IV Hypoglycemia 02/12/19 18:15 03/14/19 07:14 Dextrose (Dextrose 50%) 50 ml Q30M PRN IV Hypoglycemia 02/12/19 18:15 03/14/19 07:14 Hydralazine HCl (Apresoline) 50 mg EVERY 8 HOURS ORAL 02/12/19 22:00 03/10/19 05:59 02/12/19 21:42 Insulin Aspart (NovoLOG) BEFORE MEALS AND HS SUBQ 02/12/19 21:00 03/14/19 11:29 02/13/19 11:49 Insulin Detemir (Levemir) 12 units BID SUBQ 02/13/19 09:00 03/10/19 20:59 02/13/19 09:07 Lorazepam (Ativan 2mg/ml 1ml) 1 mg Q2H PRN IV For Anxiety 02/12/19 19:15 02/15/19 17:14 Methylprednisolone Sodium Succinate (Solu-MEDROL) 20 mg DAILY IVP 02/13/19 09:00 03/12/19 08:59 02/13/19 08:13 Metoprolol Tartrate (Lopressor) 50 mg Q6HR ORAL 02/12/19 18:00 03/11/19 18:29 02/13/19 11:45 Nateglinide (Starlix) 120 mg TIAC ORAL 02/13/19 11:30 03/15/19 11:29 02/13/19 11:45 Pantoprazole (Protonix) 40 mg DAILY IVP 02/13/19 09:00 03/10/19 20:44 02/13/19 08:12 Sitagliptin Phosphate (Januvia) 25 mg ACBREAKFAST ORAL 02/14/19 06:30 03/16/19 06:29 Blu Brink MD Feb 13, 2019 12:53
--- NOTE | 2019-02-13 14:00 | NUR ---
PT EVALUATION NOTE Patient seen for initial evaluation, see complete evaluation for details. Patient presents with generalized weakness, decreased safety awareness and impaired balance which affects patient's ability to perform mobility tasks. Patient requires min/mod assist for bed mobility and transfers, unable to ambulate due to c/o significant dizziness and weakness. Patient will benefit from skilled inpatient PT intervention to address strength, balance, safety and mobility. Recommend discharge to SNF for further rehab to improve level of function and safety once medically cleared by MD. Patient has 4 wheeled walker and shower chair at home; further DME needs to be determined based on patient's progress. Addendum: 02/13/19 at 1500 by BRISA BHAT PT Amended: Links added.
--- NOTE | 2019-02-13 14:05 | NUR ---
NURSE NOTES: Physical Therapist worked with the patient. Patient was so weak at this time and she might get more benefit if she discharge SNF vs home. Tomorrow morning she might be able to discharge home with home health if her condition progressing and based on DR. Brink decision.
[2019-02-13 16:00] VITALS: BP 118/63
--- NOTE | 2019-02-13 16:06 | NUR ---
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 97.7 HR 93 RR 20 B/P 119/89 BUN 55 CR 1.8 CO2 37 IS: CEFTRIAXONE IV PREDNISONE PO PLAVIX PO TELE STATUS
--- NOTE | 2019-02-13 16:08 | NUR ---
*-* INSURANCE *-* ALL CLINICALS AND REVIEWS HAVE BEEN FAXED TO: [facility] P: [phone] F: [phone] (FAX CLINICALS)
[2019-02-13] MEDS ORDERED: cefTRIAXone 1 GM in D5W 50 ML IVPB SCH (17:00)
--- NOTE | 2019-02-13 19:24 | NUR ---
HAND-OFF: Report given to ANDREW John.
--- NOTE | 2019-02-13 19:30 | NUR ---
NURSE NOTES: Received report from ANDREW Gutierrez. Patient is awake lying semi-neal's; resting comfortably. No signs of acute distress noted; denies pain at this time. AOx3-4; able to make needs known. Primarily Syriac speaking. Checked IV site; patent and flushed. No erythema, bleeding, or infiltration noted. Turner catheter draining well to gravity. Bed at lowest position, brakes on, siderails up x3. Call light within reach. Will continue to monitor.
[2019-02-13 20:00] VITALS: BP 111/64
[2019-02-13] MEDS: Atorvastatin 80mg tab ORAL SCH (20:54)
[2019-02-14] VITALS: BP 109/57
[2019-02-14] MEDS: Metoprolol Tartrate 50mg tab ORAL SCH ×4 (00:13→17:57)
--- NOTE | 2019-02-14 03:00 | Progress Note ---
DATE: 02/13/2019 CARDIOLOGY PROGRESS NOTE SUBJECTIVE: The patient is out of the intensive care unit. No respiratory distress. She continues on antimicrobials. She remains on full anticoagulation for cardioembolic prophylaxis. OBJECTIVE: VITAL SIGNS: Blood pressure 109/57, pulse 76, and respiratory rate 18. NECK: Jugular venous pressure is slightly elevated. LUNGS: With few rales. CARDIAC: Regular rhythm and rate. Normal S1 and S2. A 1/6 systolic murmur at apex. ABDOMEN: Soft. EXTREMITIES: Trace edema. IMPRESSION: 1. Acute on chronic diastolic congestive heart failure. 2. Status post respiratory failure. 3. Chronic obstructive pulmonary disease exacerbation. 4. Paroxysmal atrial fibrillation. 5. ____ history of CVA. PLAN: 1. Additional diuresis. 2. Maintain anticoagulation and anti-platelet therapy. 3. Insulin titration. 4. Bleeding precautions. 5. Beta-blockade. Dominic Martínez M.D. DR: ALFONSO JOB#: [id number] CC:
--- NOTE | 2019-02-14 03:45 | NUR ---
NURSE NOTES: Patient is awake sitting chairfast; resting comfortably. No signs of acute distress noted; denies pain at this time. On 2L nasal cannula. Turner catheter draining well to gravity.
[2019-02-14 04:00] VITALS: BP 144/69
[2019-02-14] MEDS: NovoLOG Insulin Flexpen SUBQ SCH ×4 (05:40→21:03)
[2019-02-14] MEDS: HydrALAZINE 50mg tab ORAL SCH ×3 (05:48→21:00)
[2019-02-14] MEDS: sitaGLIPtin 25mg tab ORAL SCH (05:53)
[2019-02-14 06:16] LABS: BASOPHILS % (AUTO) 0.5 % (0.0-2.0); EOSINOPHILS % (AUTO) 0.7 % (0.0-3.0); HEMATOCRIT 40.8 % (37.0-47.0); HEMOGLOBIN 12.6 G/DL (12.0-16.0); LYMPHOCYTES % (AUTO) 9.2 % (20.0-45.0); MEAN CORPUSCULAR VOLUME 91 FL (80-99); MONOCYTES % (AUTO) 8.5 % (1.0-10.0); NEUTROPHILS % (AUTO) 81.1 % (45.0-75.0); PLATELET COUNT 496 K/UL (150-450); RED BLOOD COUNT 4.49 M/UL (4.20-5.40); WHITE BLOOD COUNT 16.8 K/UL (4.8-10.8)
[2019-02-14 06:49] LABS: ALANINE AMINOTRANSFERASE 16 U/L (12-78); ALBUMIN 2.9 G/DL (3.4-5.0); ALBUMIN/GLOBULIN RATIO 0.8 (1.0-2.7); ALKALINE PHOSPHATASE 142 U/L (46-116); ANION GAP 2 mmol/L (5-15); ASPARTATE AMINO TRANSFERASE 17 U/L (15-37); BILIRUBIN,TOTAL 0.2 MG/DL (0.2-1.0); BLOOD UREA NITROGEN 51 mg/dL (7-18); CALCIUM 8.8 MG/DL (8.5-10.1); CARBON DIOXIDE 38 MMOL/L (21-32); CHLORIDE 103 MMOL/L (98-107); CREATININE 1.4 MG/DL (0.55-1.30); POTASSIUM 4.8 MMOL/L (3.5-5.1); SODIUM 143 MMOL/L (136-145)
--- NOTE | 2019-02-14 07:11 | General Progress Note ---
Assessment/Plan Problem List: (1) Bacteriuria ICD Codes: R82.71 - Bacteriuria SNOMED: 36940591 (2) Uncontrolled diabetes mellitus ICD Codes: E11.65 - Type 2 diabetes mellitus with hyperglycemia SNOMED: 80669284, [id number] Qualifiers: Qualified Codes: E11.65 - Type 2 diabetes mellitus with hyperglycemia (3) Acute exacerbation of CHF (congestive heart failure) ICD Codes: I50.9 - Heart failure, unspecified SNOMED: 905731498, [id number] Qualifiers: Qualified Codes: I50.9 - Heart failure, unspecified Assessment/Plan: continue Levemir 12 units bid continue Januvia 25 mg daily continue Starlix 120 mg ac tid start Metformin 500 mg bid - Cr improved continue NISS ac / hs Subjective Allergies: Coded Allergies: SULFA (SULFONAMIDE ANTIBIOTICS) (Unverified Allergy, Unknown, 02/08/19) Uncoded Allergies: SULFA (Allergy, Unknown, 02/07/19) All Systems: reviewed and negative except above Subjective events noted mealtime glucose elevated due to steroid effect IVSM changed to Prednisone Item Value Date Time Bedside Blood Glucose 150 mg/dl H 02/14/19 0630 Bedside Blood Glucose 340 mg/dl H 02/13/19 1819 Bedside Blood Glucose 387 mg/dl H 02/13/19 1149 Bedside Blood Glucose 327 mg/dl H 02/13/19 0907 Bedside Blood Glucose 257 mg/dl H 02/13/19 0630 Objective Last 24 Hour Vital Signs Date Time Temp Pulse Resp B/P (MAP) Pulse Ox O2 Delivery O2 Flow Rate FiO2 02/14/19 05:49 87 147/61 02/14/19 05:48 147/61 02/14/19 04:00 98.1 70 16 144/69 (94) 95 02/14/19 04:00 71 02/14/19 00:13 86 109/57 02/14/19 00:00 86 02/14/19 00:00 97.9 76 18 109/57 (74) 97 02/13/19 21:00 Nasal Cannula 2.0 Nasal Cannula 2.0 02/13/19 20:55 111/64 02/13/19 20:00 93 02/13/19 20:00 97.9 82 18 111/64 (80) 97 02/13/19 18:17 84 118/63 02/13/19 16:00 84 02/13/19 16:00 98.2 84 20 118/63 (81) 94 02/13/19 14:00 109/65 02/13/19 12:00 97.7 93 20 119/59 (79) 95 02/13/19 11:57 97 02/13/19 11:45 104 119/59 02/13/19 09:00 Nasal Cannula 2.0 Nasal Cannula 2.0 02/13/19 08:12 86 118/74 02/13/19 08:00 97.6 86 20 118/74 (89) 96 02/13/19 07:45 94 02/13/19 07:26 73 17 98 Nasal Cannula 2.0 28 02/13/19 07:16 96 Nasal Cannula 2.0 28 02/13/19 07:16 70 18 96 Nasal Cannula 2.0 28 Intake and Output 02/13/19 02/14/19 19:00 07:00 Intake Total 260 ml 240 ml Output Total 820 ml 1750 ml Balance -560 ml -1510 ml Intake Oral 260 ml 240 ml Output Urine Total 820 ml 1750 ml Laboratory Tests 02/14/19 05:38: White Blood Count 16.8#H, Red Blood Count 4.49, Hemoglobin 12.6, Hematocrit 40.8 , Mean Corpuscular Volume 91, Mean Corpuscular Hemoglobin 28.0, Mean Corpuscular Hemoglobin Concent 30.8L, Red Cell Distribution Width 16.0H, Platelet Count 496H, Mean Platelet Volume 5.9L, Neutrophils (%) (Auto) 81.1H, Lymphocytes (%) (Auto) 9.2L, Monocytes (%) (Auto) 8.5, Eosinophils (%) (Auto) 0.7, Basophils (%) (Auto) 0.5, Sodium Level 143, Potassium Level 4.8, Chloride Level 103, Carbon Dioxide Level 38H, Anion Gap 2L, Blood Urea Nitrogen 51H, Creatinine 1.4H, Estimat Glomerular Filtration Rate , Glucose Level 176#H, Calcium Level 8.8, Total Bilirubin 0.2, Aspartate Amino Transf (AST/SGOT) 17, Alanine Aminotransferase (ALT/SGPT) 16, Alkaline Phosphatase 142H, Total Protein 6.6, Albumin 2.9L, Globulin 3.7, Albumin/Globulin Ratio 0.8L Height (Feet): 5 Height (Inches): 4.00 Weight (Pounds): 182 General Appearance: no apparent distress Neck: normal alignment Cardiovascular: normal rate Respiratory/Chest: decreased breath sounds Abdomen: normal bowel sounds Pelvis: normal external exam Objective Current Medications Medications (Trade) Dose Ordered Sig/Willy Route PRN Reason Start Time Stop Time Status Last Admin Dose Admin Acetaminophen (Tylenol) 650 mg Q6H PRN ORAL Mild Pain/Temp > 100.5 02/12/19 18:15 03/11/19 18:14 Amlodipine Besylate (Norvasc) 5 mg DAILY ORAL 02/13/19 09:00 03/11/19 08:59 02/13/19 08:12 Apixaban (Eliquis) 5 mg BID ORAL 02/12/19 18:00 03/10/19 08:59 02/13/19 18:17 Aspirin (ASA) 81 mg DAILY ORAL 02/13/19 09:00 03/10/19 08:59 02/13/19 08:13 Atorvastatin Calcium (Lipitor) 80 mg BEDTIME ORAL 02/12/19 21:00 03/10/19 20:59 02/13/19 20:54 Ceftriaxone Sodium 1 gm/ Sodium Chloride 55 ml @ 110 mls/hr DAILY IVPB 02/13/19 12:00 02/17/19 23:00 02/13/19 12:38 Clopidogrel Bisulfate (Plavix) 75 mg DAILY ORAL 02/13/19 09:00 03/10/19 08:59 02/13/19 08:12 Dextrose (Dextrose 50%) 25 ml Q30M PRN IV Hypoglycemia 02/12/19 18:15 03/14/19 07:14 Dextrose (Dextrose 50%) 50 ml Q30M PRN IV Hypoglycemia 02/12/19 18:15 03/14/19 07:14 Hydralazine HCl (Apresoline) 50 mg EVERY 8 HOURS ORAL 02/12/19 22:00 03/10/19 05:59 02/14/19 05:48 Insulin Aspart (NovoLOG) BEFORE MEALS AND HS SUBQ 02/12/19 21:00 03/14/19 11:29 02/14/19 05:40 Insulin Detemir (Levemir) 12 units BID SUBQ 02/13/19 09:00 03/10/19 20:59 02/13/19 18:19 Metoprolol Tartrate (Lopressor) 50 mg Q6HR ORAL 02/12/19 18:00 03/11/19 18:29 02/14/19 05:49 Nateglinide (Starlix) 120 mg TIAC ORAL 02/13/19 11:30 03/15/19 11:29 02/14/19 05:49 Pantoprazole (Protonix) 40 mg ACBREAKFAST ORAL 02/14/19 06:30 03/16/19 06:29 02/14/19 05:53 Prednisone (predniSONE) 10 mg DAILY ORAL 02/14/19 09:00 03/16/19 08:59 Sitagliptin Phosphate (Januvia) 25 mg ACBREAKFAST ORAL 02/14/19 06:30 03/16/19 06:29 02/14/19 05:53 Garett Shay MD Feb 14, 2019 07:10
--- NOTE | 2019-02-14 07:53 | NUR ---
HAND-OFF: Report given to ANDREW Lauren. Patient is awake lying semi-neal's; resting comfortably. In stable condition.
[2019-02-14 08:00] VITALS: BP 134/67
--- NOTE | 2019-02-14 08:02 | NUR ---
pt. awake in bed resting calmly. Pt Aox2 . Pt on 2L oxygen on quality assurance monitor final no signs of cardiac or respiratory distress. IV site intact and patent. Bed is locked and in lowest position. Call light within reach. Will continue to follow plan of care.
[2019-02-14] MEDS: cefTRIAXone 1 GM in NS 55 ML IVPB SCH (09:21)
[2019-02-14] MEDS: Eliquis 5mg tablet ORAL SCH ×2 (09:23→17:48)
[2019-02-14] MEDS: Aspirin Baby 81mg ORAL SCH (09:23)
[2019-02-14] MEDS: metFORMIN 500mg tab ORAL SCH ×2 (09:23→17:48)
[2019-02-14] MEDS: Levemir Flexpen SUBQ SCH ×2 (10:20→18:20)
[2019-02-14] MEDS ORDERED: D5 1/2NS 1000ml IV ONE (10:45)
[2019-02-14] MEDS ORDERED: Tubing IV Secondary IV ONE (10:45)
--- NOTE | 2019-02-14 11:45 | NUR ---
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 96.1 HR 83 RR 18 B/P 147/61 WBC 16.8 CO2 38 BUN 51 CR 1.4 ALK PHOS 142 IS: CEFTRIAXONE IV PREDNISONE PO METFORMIN PO PROTONIX PO TELE STATUS
[2019-02-14 12:00] VITALS: BP 142/69
--- NOTE | 2019-02-14 12:16 | NUR ---
NURSE NOTES: Daughter called and states that her mother has fallen several times at home this past week. will notify the Md... Pt is currently week and reporting dizziness.
--- NOTE | 2019-02-14 14:54 | NUR ---
*-* INSURANCE *-* ALL CLINICALS AND REVIEWS HAVE BEEN FAXED TO: [facility] P: [phone] F: [phone] (FAX CLINICALS)
[2019-02-14 16:00] VITALS: BP 105/55
--- NOTE | 2019-02-14 16:24 | Infectious Diseases Prog Note ---
Assessment/Plan Assessment/Plan ASSESSMENT AND PLAN: 1. klebsiella uti, sepsis, chf, respiratory failure leukocytosis, fevers, recent iv steroids - rocephin - day # 5 abx - extubated - monitor labs and chest x-ray - recurrent leukocytosis likely secondary to steroids - recheck ua/culture 2. Acute renal failure. 3. Anemia. 4. CHF. 5. Respiratory failure. 6. ICU care. 7. Diabetes. 8. Possible hypertension. 9. Blood sugar treatment per Endocrinology and primary. 10. Vent care per Dr. Brink and Dr. Sandoval. 11. Falls. 12. Sick sinus syndrome, pacemaker. 13. Sleep apnea, COPD. 14. Anemia. 15. Diastolic heart disease. 16. Coronary artery disease. 17. CHF. 18. Dyslipidemia. 19. Neuropathy. 20. Obesity. 21. Vitamin D deficiency. 22. Allergies to sulfa drugs. 23. MAR is noted. 24. Case was discussed with RN. 25. Social history negative. 26. Family history noncontributory. 27. Continue treatment per primary consultants. Subjective Constitutional: Denies: fever HEENT: Reports: congestion - mild Respiratory: Reports: shortness of breath - mild Cardiovascular: Denies: chest pain Gastrointestinal/Abdominal: Denies: nausea, vomiting, diarrhea Genitourinary: Reports: other - + salas Neurologic: Denies: headache Psychiatric: Denies: depression Skin: Denies: rash Hematologic: Denies: bleeding Musculoskeletal: Denies: pain Allergies: Coded Allergies: SULFA (SULFONAMIDE ANTIBIOTICS) (Unverified Allergy, Unknown, 02/08/19) Uncoded Allergies: SULFA (Allergy, Unknown, 02/07/19) Objective Vital Signs Last 24 Hour Vital Signs Date Time Temp Pulse Resp B/P (MAP) Pulse Ox O2 Delivery O2 Flow Rate FiO2 02/14/19 15:04 124/73 02/14/19 12:43 81 142/69 02/14/19 12:00 98.6 81 18 142/69 (93) 94 02/14/19 11:50 76 02/14/19 09:22 85 134/67 02/14/19 09:00 Nasal Cannula 2.0 Nasal Cannula 2.0 Nasal Cannula 2.0 02/14/19 08:00 96.1 85 18 134/67 (89) 97 02/14/19 07:39 75 02/14/19 05:49 87 147/61 02/14/19 05:48 147/61 02/14/19 04:00 98.1 70 16 144/69 (94) 95 02/14/19 04:00 71 02/14/19 00:13 86 109/57 02/14/19 00:00 86 02/14/19 00:00 97.9 76 18 109/57 (74) 97 02/13/19 21:00 Nasal Cannula 2.0 Nasal Cannula 2.0 02/13/19 20:55 111/64 02/13/19 20:00 93 02/13/19 20:00 97.9 82 18 111/64 (80) 97 02/13/19 18:17 84 118/63 Height (Feet): 5 Height (Inches): 4.00 Weight (Pounds): 182 General Appearance: no acute distress HEENT: normocephalic, atraumatic, anicteric, mucous membranes moist Respiratory/Chest: crackles/rales, rhonchi - bilaterally Cardiovascular: normal rate, regular rhythm, no gallop/murmur, no JVD Abdomen: normal bowel sounds, soft, non tender, no organomegaly, non distended Genitourinary: other - + salas - urine slt cloudy Extremities: no cyanosis Skin: no rash Neurologic/Psychiatric: spool fixer II-XII grossly normal, alert, responsive Lymphatic: no neck adenopathy Musculoskeletal: no effusion Objective Chest x-ray - 02/12/19 - Comparison: 02/10/2019 A single view chest radiograph was obtained. Findings: Pulmonary vascular congestion suspected. Lung volumes are low. Patient has been extubated. The left lung base is obscured. Pacemaker is noted. Bones are osteopenic. IMPRESSION: Suspected pulmonary vascular congestion Microbiology Date/Time Source Procedure Growth Status 02/10/19 09:15 Blood Blood Culture - Preliminary NO GROWTH AFTER 72 HOURS Resulted 02/10/19 10:30 Sputum Induced Gram Stain - Final Complete 02/10/19 10:30 Sputum Induced Sputum Culture - Final NORMAL UPPER RESPIRATORY ROHAN PRESENT Complete 02/10/19 10:30 Indwelling Cath Urine Culture - Final NO GROWTH AFTER 48 HOURS Complete 02/08/19 04:30 Rectum - Final NO CARBAPENEM-RESISTANT ENTEROBACTERI... Complete Laboratory Tests Test 02/14/19 05:38 White Blood Count 16.8 K/UL (4.8-10.8) #H Red Blood Count 4.49 M/UL (4.20-5.40) Hemoglobin 12.6 G/DL (12.0-16.0) Hematocrit 40.8 % (37.0-47.0) Mean Corpuscular Volume 91 FL (80-99) Mean Corpuscular Hemoglobin 28.0 PG (27.0-31.0) Mean Corpuscular Hemoglobin Concent 30.8 G/DL (32.0-36.0) L Red Cell Distribution Width 16.0 % (11.6-14.8) H Platelet Count 496 K/UL (150-450) H Mean Platelet Volume 5.9 FL (6.5-10.1) L Neutrophils (%) (Auto) 81.1 % (45.0-75.0) H Lymphocytes (%) (Auto) 9.2 % (20.0-45.0) L Monocytes (%) (Auto) 8.5 % (1.0-10.0) Eosinophils (%) (Auto) 0.7 % (0.0-3.0) Basophils (%) (Auto) 0.5 % (0.0-2.0) Sodium Level 143 MMOL/L (136-145) Potassium Level 4.8 MMOL/L (3.5-5.1) Chloride Level 103 MMOL/L (98-107) Carbon Dioxide Level 38 MMOL/L (21-32) H Anion Gap 2 mmol/L (5-15) L Blood Urea Nitrogen 51 mg/dL (7-18) H Creatinine 1.4 MG/DL (0.55-1.30) H Estimat Glomerular Filtration Rate mL/min (>60) Glucose Level 176 MG/DL (74-106) #H Calcium Level 8.8 MG/DL (8.5-10.1) Total Bilirubin 0.2 MG/DL (0.2-1.0) Aspartate Amino Transf (AST/SGOT) 17 U/L (15-37) Alanine Aminotransferase (ALT/SGPT) 16 U/L (12-78) Alkaline Phosphatase 142 U/L (46-116) H Total Protein 6.6 G/DL (6.4-8.2) Albumin 2.9 G/DL (3.4-5.0) L Globulin 3.7 g/dL Albumin/Globulin Ratio 0.8 (1.0-2.7) L Current Medications Medications (Trade) Dose Ordered Sig/Willy Route PRN Reason Start Time Stop Time Status Last Admin Dose Admin Acetaminophen (Tylenol) 650 mg Q6H PRN ORAL Mild Pain/Temp > 100.5 02/12/19 18:15 03/11/19 18:14 Amlodipine Besylate (Norvasc) 5 mg DAILY ORAL 02/13/19 09:00 03/11/19 08:59 02/14/19 09:22 Apixaban (Eliquis) 5 mg BID ORAL 02/12/19 18:00 03/10/19 08:59 02/14/19 09:23 Aspirin (ASA) 81 mg DAILY ORAL 02/13/19 09:00 03/10/19 08:59 02/14/19 09:23 Atorvastatin Calcium (Lipitor) 80 mg BEDTIME ORAL 02/12/19 21:00 03/10/19 20:59 02/13/19 20:54 Ceftriaxone Sodium 1 gm/ Sodium Chloride 55 ml @ 110 mls/hr DAILY IVPB 02/13/19 12:00 02/17/19 23:00 02/14/19 09:21 Clopidogrel Bisulfate (Plavix) 75 mg DAILY ORAL 02/13/19 09:00 03/10/19 08:59 02/14/19 09:23 Dextrose (Dextrose 50%) 25 ml Q30M PRN IV Hypoglycemia 02/12/19 18:15 03/14/19 07:14 Dextrose (Dextrose 50%) 50 ml Q30M PRN IV Hypoglycemia 02/12/19 18:15 03/14/19 07:14 Furosemide (Lasix) 40 mg DAILY IV 02/14/19 13:00 03/16/19 12:59 02/14/19 13:52 Hydralazine HCl (Apresoline) 50 mg EVERY 8 HOURS ORAL 02/12/19 22:00 03/10/19 05:59 02/14/19 15:04 Insulin Aspart (NovoLOG) BEFORE MEALS AND HS SUBQ 02/12/19 21:00 03/14/19 11:29 02/14/19 12:45 Insulin Detemir (Levemir) 12 units BID SUBQ 02/13/19 09:00 03/10/19 20:59 02/14/19 10:20 Metformin HCl (Glucophage) 500 mg BID ORAL 02/14/19 09:00 03/16/19 08:59 02/14/19 09:23 Metoprolol Tartrate (Lopressor) 50 mg Q6HR ORAL 02/12/19 18:00 03/11/19 18:29 02/14/19 12:43 Nateglinide (Starlix) 120 mg TIAC ORAL 02/13/19 11:30 03/15/19 11:29 02/14/19 12:39 Pantoprazole (Protonix) 40 mg ACBREAKFAST ORAL 02/14/19 06:30 03/16/19 06:29 02/14/19 05:53 Prednisone (predniSONE) 10 mg DAILY ORAL 02/14/19 09:00 03/16/19 08:59 02/14/19 09:23 Sitagliptin Phosphate (Januvia) 25 mg ACBREAKFAST ORAL 02/14/19 06:30 03/16/19 06:29 02/14/19 05:53 Jose Cutler MD Feb 14, 2019 16:24
--- NOTE | 2019-02-14 17:34 | Pulmonology Progress Note ---
Assessment/Plan Assessment/Plan 1. Congestive heart failure. 2. Diabetes, out of control. 3. Altered mental status due to CO2 narcosis 4. COPD with resp failure 5. Sleep apnea. 6. Atrial fibrillation, not on anticoagulants. 7. Coronary heart disease. 8. Aortic atherosclerosis. 9. 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, now with asterixis check ABG steroid PO AC per cardiology disc w son Subjective ROS Limited/Unobtainable: Yes Allergies: Coded Allergies: SULFA (SULFONAMIDE ANTIBIOTICS) (Unverified Allergy, Unknown, 02/08/19) Uncoded Allergies: SULFA (Allergy, Unknown, 02/07/19) Objective Last 24 Hour Vital Signs Date Time Temp Pulse Resp B/P (MAP) Pulse Ox O2 Delivery O2 Flow Rate FiO2 02/14/19 15:04 124/73 02/14/19 12:43 81 142/69 02/14/19 12:00 98.6 81 18 142/69 (93) 94 02/14/19 11:50 76 02/14/19 09:22 85 134/67 02/14/19 09:00 Nasal Cannula 2.0 Nasal Cannula 2.0 Nasal Cannula 2.0 02/14/19 08:00 96.1 85 18 134/67 (89) 97 02/14/19 07:39 75 02/14/19 05:49 87 147/61 02/14/19 05:48 147/61 02/14/19 04:00 98.1 70 16 144/69 (94) 95 02/14/19 04:00 71 02/14/19 00:13 86 109/57 02/14/19 00:00 86 02/14/19 00:00 97.9 76 18 109/57 (74) 97 02/13/19 21:00 Nasal Cannula 2.0 Nasal Cannula 2.0 02/13/19 20:55 111/64 02/13/19 20:00 93 02/13/19 20:00 97.9 82 18 111/64 (80) 97 02/13/19 18:17 84 118/63 Intake and Output 02/13/19 02/14/19 19:00 07:00 Intake Total 260 ml 240 ml Output Total 820 ml 1750 ml Balance -560 ml -1510 ml Intake Oral 260 ml 240 ml Output Urine Total 820 ml 1750 ml General Appearance: no acute distress HEENT: atraumatic Respiratory/Chest: lungs clear, decreased breath sounds Cardiovascular: normal rate Neurologic/Psychiatric: other - asterixis Laboratory Tests 02/14/19 05:38: White Blood Count 16.8#H, Red Blood Count 4.49, Hemoglobin 12.6, Hematocrit 40.8 , Mean Corpuscular Volume 91, Mean Corpuscular Hemoglobin 28.0, Mean Corpuscular Hemoglobin Concent 30.8L, Red Cell Distribution Width 16.0H, Platelet Count 496H, Mean Platelet Volume 5.9L, Neutrophils (%) (Auto) 81.1H, Lymphocytes (%) (Auto) 9.2L, Monocytes (%) (Auto) 8.5, Eosinophils (%) (Auto) 0.7, Basophils (%) (Auto) 0.5, Sodium Level 143, Potassium Level 4.8, Chloride Level 103, Carbon Dioxide Level 38H, Anion Gap 2L, Blood Urea Nitrogen 51H, Creatinine 1.4H, Estimat Glomerular Filtration Rate , Glucose Level 176#H, Calcium Level 8.8, Total Bilirubin 0.2, Aspartate Amino Transf (AST/SGOT) 17, Alanine Aminotransferase (ALT/SGPT) 16, Alkaline Phosphatase 142H, Total Protein 6.6, Albumin 2.9L, Globulin 3.7, Albumin/Globulin Ratio 0.8L Current Medications Medications (Trade) Dose Ordered Sig/Willy Route PRN Reason Start Time Stop Time Status Last Admin Dose Admin Acetaminophen (Tylenol) 650 mg Q6H PRN ORAL Mild Pain/Temp > 100.5 02/12/19 18:15 03/11/19 18:14 Amlodipine Besylate (Norvasc) 5 mg DAILY ORAL 02/13/19 09:00 03/11/19 08:59 02/14/19 09:22 Apixaban (Eliquis) 5 mg BID ORAL 02/12/19 18:00 03/10/19 08:59 02/14/19 09:23 Aspirin (ASA) 81 mg DAILY ORAL 02/13/19 09:00 03/10/19 08:59 02/14/19 09:23 Atorvastatin Calcium (Lipitor) 80 mg BEDTIME ORAL 02/12/19 21:00 03/10/19 20:59 02/13/19 20:54 Ceftriaxone Sodium 1 gm/ Sodium Chloride 55 ml @ 110 mls/hr DAILY IVPB 02/13/19 12:00 02/17/19 23:00 02/14/19 09:21 Clopidogrel Bisulfate (Plavix) 75 mg DAILY ORAL 02/13/19 09:00 03/10/19 08:59 02/14/19 09:23 Dextrose (Dextrose 50%) 25 ml Q30M PRN IV Hypoglycemia 02/12/19 18:15 03/14/19 07:14 Dextrose (Dextrose 50%) 50 ml Q30M PRN IV Hypoglycemia 02/12/19 18:15 03/14/19 07:14 Furosemide (Lasix) 40 mg DAILY IV 02/14/19 13:00 03/16/19 12:59 02/14/19 13:52 Hydralazine HCl (Apresoline) 50 mg EVERY 8 HOURS ORAL 02/12/19 22:00 03/10/19 05:59 02/14/19 15:04 Insulin Aspart (NovoLOG) BEFORE MEALS AND HS SUBQ 02/12/19 21:00 03/14/19 11:29 02/14/19 12:45 Insulin Detemir (Levemir) 12 units BID SUBQ 02/13/19 09:00 03/10/19 20:59 02/14/19 10:20 Metformin HCl (Glucophage) 500 mg BID ORAL 02/14/19 09:00 03/16/19 08:59 02/14/19 09:23 Metoprolol Tartrate (Lopressor) 50 mg Q6HR ORAL 02/12/19 18:00 03/11/19 18:29 02/14/19 12:43 Nateglinide (Starlix) 120 mg TIAC ORAL 02/13/19 11:30 03/15/19 11:29 02/14/19 12:39 Pantoprazole (Protonix) 40 mg ACBREAKFAST ORAL 02/14/19 06:30 03/16/19 06:29 02/14/19 05:53 Prednisone (predniSONE) 10 mg DAILY ORAL 02/14/19 09:00 03/16/19 08:59 02/14/19 09:23 Sitagliptin Phosphate (Januvia) 25 mg ACBREAKFAST ORAL 02/14/19 06:30 03/16/19 06:29 02/14/19 05:53 Blu Brink MD Feb 14, 2019 17:34
[2019-02-14] MEDS: Acetaminophen 650mg/20.3ml ORAL PRN (18:24)
[2019-02-14 18:39] LABS: APPEARANCE,URINE SLIGHTLY CLOUDY; BILIRUBIN, URINE NEGATIVE (NEGATIVE); COLOR,URINE PALE YELLOW; GLUCOSE, URINE (UA) 2+ (NEGATIVE); KETONES,URINE NEGATIVE (NEGATIVE); LEUKOCYTE ESTERASE ,URINE NEGATIVE (NEGATIVE); NITRITE,URINE NEGATIVE (NEGATIVE); PH,URINE 5 (4.5-8.0); PROTEIN,URINE NEGATIVE (NEGATIVE); UROBILINOGEN,URINE NORMAL MG/DL (0.0-1.0)
--- NOTE | 2019-02-14 18:44 | NUR ---
NURSE NOTES: Reported most recent blood gases to doctor. per T/O from Doctor Keena pt to be on Bipap @ night 06/20. Dr is also aware of increase of (16.8 on WBC).
--- NOTE | 2019-02-14 18:53 | NUR ---
NURSE NOTES: Called information services tech to let them know to bring BIPap for pain she needs to use it prn and at night.
--- NOTE | 2019-02-14 19:30 | NUR ---
NURSE NOTES: Received patient from Xin MORALES. Patient in bed, on 2L NC, oriented x2. Patient appears restless. Does not know where she is or why. Patient unable to describe or locate pain, but c/o pain 04/25. Turner catheter intact. PIV on left wrist intact, patent, saline locked.
--- NOTE | 2019-02-14 19:51 | NUR ---
HAND-OFF: Report given to Vance/ANDREW. Pt complaining off an on from generalized pain. Bipap ordered and will be brought to pt. lakhwinder.
[2019-02-14 20:00] VITALS: BP 133/68
[2019-02-14] MEDS ORDERED: Milk of Magnesia 30ml Ud ORAL SCH (20:30)
--- NOTE | 2019-02-14 20:30 | NUR ---
NURSE NOTES: Notified Dr. Brink of patient's complaints of pain, no BM since 02/10. Received orders for MOM and Colace for constipation, and tramadol for pain.
[2019-02-14] MEDS: Atorvastatin 80mg tab ORAL SCH (21:00)
--- NOTE | 2019-02-14 21:00 | NUR ---
NURSE NOTES: Patient on bipap, 06/20 28%, patient denies pain, will hold tramadol.
[2019-02-15] VITALS (8 sets, daily range): BP systolic 114–142; BP diastolic 52–75
[2019-02-15] MEDS: Metoprolol Tartrate 50mg tab ORAL SCH ×5 (00:02→23:39)
--- NOTE | 2019-02-15 00:30 | NUR ---
NURSE NOTES: Patient pulled her IV out. Instructed patient to stop pulling on tubings and IV.
--- NOTE | 2019-02-15 04:15 | Progress Note ---
DATE: 02/14/2019 CARDIOLOGY PROGRESS NOTE SUBJECTIVE: The patient has no respiratory distress, however, today she has displayed signs of CO2 narcosis. She remains on steroids and inhaled bronchodilators. She continues with anticoagulation for cardioembolic prophylaxis. OBJECTIVE: VITAL SIGNS: Blood pressure 124/73, heart rate 81, respiratory rate 18, and afebrile. LUNGS: Diminished breath sounds. No wheezing. CARDIAC: Regular rhythm and rate. Normal S1 and S2. ABDOMEN: Soft. No edema. LABORATORY DATA: White count 16.8 and hemoglobin 12.6. Urinalysis today with 10 to 15 red cells. Sodium 143, potassium 4.8, bicarbonate 38, BUN 51, and creatinine 1.4. Albumin 2.9. ABG - pH 7.32, pCO2 64, and pO2 106. IMPRESSION: 1. Acute on chronic respiratory acidosis. 2. Episodic asterixis. 3. Metabolic encephalopathy. 4. Paroxysmal atrial fibrillation. 5. 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 6. Chronic obstructive pulmonary disease, status post respiratory failure. PLAN: 1. BiPAP support. 2. Monitor blood gases and clinical parameters. 3. Continue cardioembolic prophylaxis. 4. Consider acetazolamide to stimulate respiratory drive. 5. ____ diuretic dosing. Dominic Martínez M.D. DR: RAFAL JOB#: [id number] CC:
--- NOTE | 2019-02-15 05:44 | General Progress Note ---
Assessment/Plan Problem List: (1) Bacteriuria ICD Codes: R82.71 - Bacteriuria SNOMED: 66197144 (2) Uncontrolled diabetes mellitus ICD Codes: E11.65 - Type 2 diabetes mellitus with hyperglycemia SNOMED: 92813300, [id number] Qualifiers: Qualified Codes: E11.65 - Type 2 diabetes mellitus with hyperglycemia (3) Acute exacerbation of CHF (congestive heart failure) ICD Codes: I50.9 - Heart failure, unspecified SNOMED: 168766475, [id number] Qualifiers: Qualified Codes: I50.9 - Heart failure, unspecified Assessment/Plan: continue Levemir 12 units bid continue Januvia 25 mg daily continue Starlix 120 mg ac tid continue Metformin 500 mg bid continue NISS ac / hs Subjective Allergies: Coded Allergies: SULFA (SULFONAMIDE ANTIBIOTICS) (Unverified Allergy, Unknown, 02/08/19) Uncoded Allergies: SULFA (Allergy, Unknown, 02/07/19) All Systems: reviewed and negative except above Subjective events noted glucose values improving Item Value Date Time Bedside Blood Glucose 280 mg/dl H 02/14/19 2103 Bedside Blood Glucose 317 mg/dl H 02/14/19 1820 Bedside Blood Glucose 144 mg/dl H 02/14/19 1245 Bedside Blood Glucose 155 mg/dl H 02/14/19 1020 Bedside Blood Glucose 150 mg/dl H 02/14/19 0630 Objective Last 24 Hour Vital Signs Date Time Temp Pulse Resp B/P (MAP) Pulse Ox O2 Delivery O2 Flow Rate FiO2 02/15/19 05:04 84 14 99 Facial 28 02/15/19 04:00 98.2 84 18 121/52 (75) 98 02/15/19 03:15 78 24 100 Facial 28 02/15/19 01:51 84 24 99 Facial 28 02/15/19 00:02 75 134/64 02/15/19 00:00 97.7 75 16 134/64 (87) 96 02/14/19 23:14 89 19 99 Facial 28 02/14/19 21:00 Nasal Cannula 2.0 Nasal Cannula 2.0 Nasal Cannula 2.0 02/14/19 21:00 133/68 02/14/19 20:28 93 19 97 Facial 28 02/14/19 20:00 97.7 84 19 133/68 (89) 96 02/14/19 19:00 94 Nasal Cannula 2.0 28 02/14/19 17:57 77 105/55 02/14/19 16:00 78 02/14/19 16:00 98.6 77 16 105/55 (72) 97 02/14/19 15:04 124/73 02/14/19 12:43 81 142/69 02/14/19 12:00 98.6 81 18 142/69 (93) 94 02/14/19 11:50 76 02/14/19 09:22 85 134/67 02/14/19 09:00 Nasal Cannula 2.0 Nasal Cannula 2.0 Nasal Cannula 2.0 02/14/19 08:00 96.1 85 18 134/67 (89) 97 02/14/19 07:39 75 02/14/19 05:49 87 147/61 02/14/19 05:48 147/61 Intake and Output 02/14/19 02/15/19 18:59 06:59 Intake Total 500 ml Output Total 1450 ml Balance -950 ml Intake Oral 500 ml Output Urine Total 1450 ml Laboratory Tests 02/14/19 17:50: Arterial Blood pH 7.322L, Arterial Blood Partial Pressure CO2 64.7*H, Arterial Blood Partial Pressure O2 106.3H, Arterial Blood HCO3 32.7H, Arterial Blood Oxygen Saturation 97.5, Arterial Blood Base Excess 4.9H, Ector Test Positive 02/14/19 18:00: Urine Color Pale yellow, Urine Appearance Slightly cloudy, Urine pH 5, Urine Specific [place] 1.010, Urine Protein Negative, Urine Glucose (UA) 2+H, Urine Ketones Negative, Urine Blood 3+H, Urine Nitrite Negative, Urine Bilirubin Negative, Urine Urobilinogen Normal, Urine Leukocyte Esterase Negative, Urine RBC 10-15H, Urine WBC 0-2, Urine Squamous Epithelial Cells ManyH, Urine Bacteria None Height (Feet): 5 Height (Inches): 4.00 Weight (Pounds): 182 General Appearance: no apparent distress Neck: normal alignment Cardiovascular: normal rate Respiratory/Chest: decreased breath sounds Abdomen: normal bowel sounds Pelvis: normal external exam Objective Current Medications Medications (Trade) Dose Ordered Sig/Willy Route PRN Reason Start Time Stop Time Status Last Admin Dose Admin Acetaminophen (Tylenol) 650 mg Q6H PRN ORAL Mild Pain/Temp > 100.5 02/12/19 18:15 03/11/19 18:14 02/14/19 18:24 Acetazolamide (Diamox) 250 mg TWICE A DAY ORAL 02/15/19 09:00 03/17/19 08:59 Amlodipine Besylate (Norvasc) 5 mg DAILY ORAL 02/13/19 09:00 03/11/19 08:59 02/14/19 09:22 Apixaban (Eliquis) 5 mg BID ORAL 02/12/19 18:00 03/10/19 08:59 02/14/19 17:48 Aspirin (ASA) 81 mg DAILY ORAL 02/13/19 09:00 03/10/19 08:59 02/14/19 09:23 Atorvastatin Calcium (Lipitor) 80 mg BEDTIME ORAL 02/12/19 21:00 03/10/19 20:59 02/14/19 21:00 Ceftriaxone Sodium 1 gm/ Sodium Chloride 55 ml @ 110 mls/hr DAILY IVPB 02/13/19 12:00 02/17/19 23:00 02/14/19 09:21 Clopidogrel Bisulfate (Plavix) 75 mg DAILY ORAL 02/13/19 09:00 03/10/19 08:59 02/14/19 09:23 Dextrose (Dextrose 50%) 25 ml Q30M PRN IV Hypoglycemia 02/12/19 18:15 03/14/19 07:14 Dextrose (Dextrose 50%) 50 ml Q30M PRN IV Hypoglycemia 02/12/19 18:15 03/14/19 07:14 Docusate Sodium (Colace) 100 mg TWICE A DAY ORAL 02/15/19 09:00 03/17/19 08:59 Hydralazine HCl (Apresoline) 50 mg EVERY 8 HOURS ORAL 02/12/19 22:00 03/10/19 05:59 02/14/19 21:00 Insulin Aspart (NovoLOG) BEFORE MEALS AND HS SUBQ 02/12/19 21:00 03/14/19 11:29 02/14/19 21:03 Insulin Detemir (Levemir) 12 units BID SUBQ 02/13/19 09:00 03/10/19 20:59 02/14/19 18:20 Metformin HCl (Glucophage) 500 mg BID ORAL 02/14/19 09:00 03/16/19 08:59 02/14/19 17:48 Metoprolol Tartrate (Lopressor) 50 mg Q6HR ORAL 02/12/19 18:00 03/11/19 18:29 02/15/19 00:02 Nateglinide (Starlix) 120 mg TIAC ORAL 02/13/19 11:30 03/15/19 11:29 02/14/19 17:48 Pantoprazole (Protonix) 40 mg ACBREAKFAST ORAL 02/14/19 06:30 03/16/19 06:29 02/14/19 05:53 Prednisone (predniSONE) 10 mg DAILY ORAL 02/14/19 09:00 03/16/19 08:59 02/14/19 09:23 Sitagliptin Phosphate (Januvia) 25 mg ACBREAKFAST ORAL 02/14/19 06:30 03/16/19 06:29 02/14/19 05:53 Tramadol HCl (Ultram) 50 mg Q6H PRN ORAL Severe Pain (Pain Scale 7-10) 02/14/19 20:30 02/21/19 20:29 Garett Shay MD Feb 15, 2019 05:44
--- NOTE | 2019-02-15 06:00 | NUR ---
NURSE NOTES: Blood sugar 73, gave 8oz orange juice.
[2019-02-15] MEDS: HydrALAZINE 50mg tab ORAL SCH ×3 (06:04→21:22)
[2019-02-15] MEDS: sitaGLIPtin 25mg tab ORAL SCH (06:12)
[2019-02-15] MEDS: NovoLOG Insulin Flexpen SUBQ SCH ×4 (06:30→21:31)
--- NOTE | 2019-02-15 07:20 | NUR ---
NURSE NOTES: Pt Aox3 and restless. pt. in bed and asked to take bipap and was taken off however, started complaining about having a hard time breathing so scrub technician put her back on Bipap. Pt. on hall monitor no signs of cardiac distress. Pt pulled out IV last night and nurses have tried multiple times to put it on but have not been able to. Will continue to try to put an new IV access. Bed in lowest position and locked. Call light with in reach. Will continue to follow plan of care. Plan to DC pt to snf facility continues.
--- NOTE | 2019-02-15 08:30 | NUR ---
NURSE NOTES: pr doctor mac no new ABG's are needed, bipap to be use at night only. T/o for lower venous duplex due to left leg pain.
--- NOTE | 2019-02-15 08:34 | NUR ---
RADIOLOGY DEPT., CHEST X-RAY DONE.-P.DYE
--- NOTE | 2019-02-15 09:04 | Diagnostic Imaging Report ---
Indication: Dyspnea Technique: One view of the chest Comparison: 02/12/2019 Findings: There is a left chest bifocal pacemaker again demonstrated. There is decreased retrocardiac consolidation. There is persistent mild interstitial congestion. The heart is enlarged Impression: Persistent mild interstitial congestion, over 3 days Improved retrocardiac consolidation and possibly decreased left pleural fluid
--- NOTE | 2019-02-15 09:39 | NUR ---
NURSE NOTES: pt will need to person assist to stand up and to put into bed. pt dizzy and weak. B/P 135/65 hr 91 O2 95-97 on 2L Oxygen.
[2019-02-15 09:44] LABS: ANION GAP 1 mmol/L (5-15); BLOOD UREA NITROGEN 42 mg/dL (7-18); CALCIUM 8.7 MG/DL (8.5-10.1); CARBON DIOXIDE 35 MMOL/L (21-32); CHLORIDE 104 MMOL/L (98-107); CREATININE 1.3 MG/DL (0.55-1.30); POTASSIUM 4.6 MMOL/L (3.5-5.1); SODIUM 140 MMOL/L (136-145)
[2019-02-15 09:49] LABS: ALANINE AMINOTRANSFERASE 13 U/L (12-78); ALBUMIN 2.5 G/DL (3.4-5.0); ALBUMIN/GLOBULIN RATIO 0.6 (1.0-2.7); ALKALINE PHOSPHATASE 109 U/L (46-116); ASPARTATE AMINO TRANSFERASE 15 U/L (15-37); BASOPHILS % (AUTO) 0.6 % (0.0-2.0); BILIRUBIN,TOTAL 0.3 MG/DL (0.2-1.0); HEMATOCRIT 37.6 % (37.0-47.0); HEMOGLOBIN 11.4 G/DL (12.0-16.0); LYMPHOCYTES % (AUTO) 9.2 % (20.0-45.0); MEAN CORPUSCULAR VOLUME 91 FL (80-99); MONOCYTES % (AUTO) 8.4 % (1.0-10.0); NEUTROPHILS % (AUTO) 80.8 % (45.0-75.0); PLATELET COUNT 472 K/UL (150-450); RED BLOOD COUNT 4.13 M/UL (4.20-5.40); RED CELL DISTRIBUTION WIDTH 16.6 % (11.6-14.8); WHITE BLOOD COUNT 15.4 K/UL (4.8-10.8)
[2019-02-15] MEDS: traMADol 50mg tab ORAL PRN ×2 (10:32→17:28)
[2019-02-15] MEDS: Docusate 100mg cap ORAL SCH ×2 (10:32→18:34)
[2019-02-15] MEDS: metFORMIN 500mg tab ORAL SCH ×2 (10:32→18:33)
[2019-02-15] MEDS: Eliquis 5mg tablet ORAL SCH ×2 (10:32→18:34)
[2019-02-15] MEDS: Aspirin Baby 81mg ORAL SCH (10:33)
[2019-02-15] MEDS: Levemir Flexpen SUBQ SCH ×2 (10:34→18:36)
--- NOTE | 2019-02-15 10:51 | NUR ---
NURSE NOTES: notified Dr. Brink of latest labs and pt complaints of dizziness. As well as if he wants to repeat venous duplex.
--- NOTE | 2019-02-15 11:11 | Pulmonology Progress Note ---
Assessment/Plan Assessment/Plan 1. Congestive heart failure. 2. Diabetes, out of control. 3. Altered mental status due to CO2 narcosis 4. COPD with resp failure 5. Sleep apnea. 6. Atrial fibrillation, not on anticoagulants. 7. Coronary heart disease. 8. Aortic atherosclerosis. 9. 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, mild hypercarbia NO diamox; it will make her more acidotic steroid PO; this is causing high WBC DC plan to snf if duplex ok disc w dtr, RN Subjective ROS Limited/Unobtainable: Yes Allergies: Coded Allergies: SULFA (SULFONAMIDE ANTIBIOTICS) (Unverified Allergy, Unknown, 02/08/19) Uncoded Allergies: SULFA (Allergy, Unknown, 02/07/19) Objective Last 24 Hour Vital Signs Date Time Temp Pulse Resp B/P (MAP) Pulse Ox O2 Delivery O2 Flow Rate FiO2 02/15/19 10:33 90 135/65 02/15/19 08:42 Bi-pap 28.0 Nasal Cannula 2.0 Nasal Cannula 2.0 02/15/19 08:00 97.5 72 18 114/74 (87) 98 02/15/19 07:44 99 Bi-Pap 28 02/15/19 07:44 84 16 99 Facial 28 02/15/19 06:04 134/71 02/15/19 06:03 81 134/71 (92) 02/15/19 06:03 81 134/71 02/15/19 05:04 84 14 99 Facial 28 02/15/19 04:00 74 02/15/19 04:00 98.2 84 18 121/52 (75) 98 02/15/19 03:15 78 24 100 Facial 28 02/15/19 01:51 84 24 99 Facial 28 02/15/19 00:02 75 134/64 02/15/19 00:00 97.7 75 16 134/64 (87) 96 02/14/19 23:14 89 19 99 Facial 28 02/14/19 21:00 Nasal Cannula 2.0 Nasal Cannula 2.0 Nasal Cannula 2.0 02/14/19 21:00 133/68 02/14/19 20:28 93 19 97 Facial 28 02/14/19 20:00 97.7 84 19 133/68 (89) 96 02/14/19 19:00 94 Nasal Cannula 2.0 28 02/14/19 17:57 77 105/55 02/14/19 16:00 78 02/14/19 16:00 98.6 77 16 105/55 (72) 97 02/14/19 15:04 124/73 02/14/19 12:43 81 142/69 02/14/19 12:00 98.6 81 18 142/69 (93) 94 02/14/19 11:50 76 Intake and Output 02/14/19 02/15/19 19:00 07:00 Intake Total 500 ml Output Total 1450 ml Balance -950 ml Intake Oral 500 ml Output Urine Total 1450 ml # Voids 2 General Appearance: no acute distress HEENT: normocephalic Respiratory/Chest: lungs clear, decreased breath sounds Cardiovascular: normal rate Extremities: other - L leg tender Microbiology Date/Time Source Procedure Growth Status 02/14/19 18:00 External Cath Urine Culture - Preliminary NO GROWTH Resulted Laboratory Tests 02/14/19 17:50: Arterial Blood pH 7.322L, Arterial Blood Partial Pressure CO2 64.7*H, Arterial Blood Partial Pressure O2 106.3H, Arterial Blood HCO3 32.7H, Arterial Blood Oxygen Saturation 97.5, Arterial Blood Base Excess 4.9H, Ector Test Positive 02/14/19 18:00: Urine Color Pale yellow, Urine Appearance Slightly cloudy, Urine pH 5, Urine Specific [place] 1.010, Urine Protein Negative, Urine Glucose (UA) 2+H, Urine Ketones Negative, Urine Blood 3+H, Urine Nitrite Negative, Urine Bilirubin Negative, Urine Urobilinogen Normal, Urine Leukocyte Esterase Negative, Urine RBC 10-15H, Urine WBC 0-2, Urine Squamous Epithelial Cells ManyH, Urine Bacteria None 02/15/19 09:15: White Blood Count 15.4H, Red Blood Count 4.13L, Hemoglobin 11.4L, Hematocrit 37.6, Mean Corpuscular Volume 91, Mean Corpuscular Hemoglobin 27.6, Mean Corpuscular Hemoglobin Concent 30.3L, Red Cell Distribution Width 16.6H, Platelet Count 472H, Mean Platelet Volume 5.8L, Neutrophils (%) (Auto) 80.8H, Lymphocytes (%) (Auto) 9.2L, Monocytes (%) (Auto) 8.4, Eosinophils (%) (Auto) 1.0, Basophils (%) (Auto) 0.6, Sodium Level 140, Potassium Level 4.6, Chloride Level 104, Carbon Dioxide Level 35H, Anion Gap 1L, Blood Urea Nitrogen 42H, Creatinine 1.3, Estimat Glomerular Filtration Rate , Glucose Level 143H, Calcium Level 8.7, Total Bilirubin 0.3, Aspartate Amino Transf (AST/SGOT) 15, Alanine Aminotransferase (ALT/SGPT) 13, Alkaline Phosphatase 109, Total Protein 6.4, Albumin 2.5L, Globulin 3.9, Albumin/Globulin Ratio 0.6L Current Medications Medications (Trade) Dose Ordered Sig/Willy Route PRN Reason Start Time Stop Time Status Last Admin Dose Admin Acetaminophen (Tylenol) 650 mg Q6H PRN ORAL Mild Pain/Temp > 100.5 02/12/19 18:15 03/11/19 18:14 02/14/19 18:24 Amlodipine Besylate (Norvasc) 5 mg DAILY ORAL 02/13/19 09:00 03/11/19 08:59 02/15/19 10:33 Apixaban (Eliquis) 5 mg BID ORAL 02/12/19 18:00 03/10/19 08:59 02/15/19 10:32 Aspirin (ASA) 81 mg DAILY ORAL 02/13/19 09:00 03/10/19 08:59 02/15/19 10:33 Atorvastatin Calcium (Lipitor) 80 mg BEDTIME ORAL 02/12/19 21:00 03/10/19 20:59 02/14/19 21:00 Clopidogrel Bisulfate (Plavix) 75 mg DAILY ORAL 02/13/19 09:00 03/10/19 08:59 02/15/19 10:33 Dextrose (Dextrose 50%) 25 ml Q30M PRN IV Hypoglycemia 02/12/19 18:15 03/14/19 07:14 Dextrose (Dextrose 50%) 50 ml Q30M PRN IV Hypoglycemia 02/12/19 18:15 03/14/19 07:14 Docusate Sodium (Colace) 100 mg TWICE A DAY ORAL 02/15/19 09:00 03/17/19 08:59 02/15/19 10:32 Hydralazine HCl (Apresoline) 50 mg EVERY 8 HOURS ORAL 02/12/19 22:00 03/10/19 05:59 02/15/19 06:04 Insulin Aspart (NovoLOG) BEFORE MEALS AND HS SUBQ 7/30/19 21:00 03/14/19 11:29 02/14/19 21:03 Insulin Detemir (Levemir) 12 units BID SUBQ 02/13/19 09:00 03/10/19 20:59 02/15/19 10:34 Metformin HCl (Glucophage) 500 mg BID ORAL 02/14/19 09:00 03/16/19 08:59 02/15/19 10:32 Metoprolol Tartrate (Lopressor) 50 mg Q6HR ORAL 02/12/19 18:00 03/11/19 18:29 02/15/19 06:03 Nateglinide (Starlix) 120 mg TIAC ORAL 02/13/19 11:30 03/15/19 11:29 02/15/19 06:12 Pantoprazole (Protonix) 40 mg ACBREAKFAST ORAL 02/14/19 06:30 03/16/19 06:29 02/15/19 06:03 Prednisone (predniSONE) 10 mg DAILY ORAL 02/14/19 09:00 03/16/19 08:59 02/15/19 10:32 Sitagliptin Phosphate (Januvia) 25 mg ACBREAKFAST ORAL 02/14/19 06:30 03/16/19 06:29 02/15/19 06:12 Tramadol HCl (Ultram) 50 mg Q6H PRN ORAL Severe Pain (Pain Scale 7-10) 02/14/19 20:30 02/21/19 20:29 02/15/19 10:32 Blu Brink MD Feb 15, 2019 11:11
--- NOTE | 2019-02-15 14:09 | NUR ---
*-* INSURANCE *-* ALL CLINICALS AND REVIEWS HAVE BEEN FAXED TO: [facility] P: [phone] F: [phone] (FAX CLINICALS)
--- NOTE | 2019-02-15 15:18 | NUR ---
NURSE NOTES: pt venous duplex scan only for L leg, called vascular lab.
[2019-02-15] MEDS: Wixela 250/50 Inhaler - 60 dose INH SCH (19:03)
--- NOTE | 2019-02-15 19:41 | NUR ---
NURSE NOTES: Received patient from Xin MORALES. Patient in bed, on 2L NC, no s/s respiratory distress. 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 Dr. Keena menjivar, was contacted earlier in the morning, waldemar SAUCEDO dc'd. Patient in bed, refused SCDs, no c/o pain, alert and oriented x 2 to self, and year. Does not know why and what city she is in. Bed in low position, locked, bed alarm on, call light within reach.
--- NOTE | 2019-02-15 19:41 | NUR ---
HAND-OFF: Report given to Vance/rn. Endorsed to RN to contact [facility] in regards to DC order and to inform if pt needs Bipap at SNF because they are doing the SNF arrangements. [facility] works weekends and is waiting for a call back to finalize arrangements.
[2019-02-15] MEDS: Atorvastatin 80mg tab ORAL SCH (21:22)
[2019-02-16] VITALS (7 sets, daily range): BP systolic 102–132; BP diastolic 55–74
[2019-02-16] MEDS: HydrALAZINE 50mg tab ORAL SCH ×3 (06:56→21:24)
[2019-02-16] MEDS: sitaGLIPtin 25mg tab ORAL SCH (06:56)
[2019-02-16] MEDS: Metoprolol Tartrate 50mg tab ORAL SCH ×3 (06:56→18:00)
[2019-02-16] MEDS: NovoLOG Insulin Flexpen SUBQ SCH ×4 (07:03→21:24)
--- NOTE | 2019-02-16 07:15 | NUR ---
NURSE NOTES: Received patient from ANDREW Woodard. Patient in bed, on Bipap 06/20, no s/s respiratory distress. No IV access, multiple attempts by day shift and retail shift supervisor. Dr. Brink aware. Patient in bed, refused SCDs, no c/o pain, alert and oriented x 2 to self, and year. Bed in low position, locked, bed alarm on, call light within reach.
--- NOTE | 2019-02-16 07:30 | NUR ---
HAND-OFF: Report given to Christopher MORALES.
[2019-02-16 07:41] LABS: BASOPHILS % (AUTO) 0.9 % (0.0-2.0); EOSINOPHILS % (AUTO) 1.4 % (0.0-3.0); HEMATOCRIT 38.8 % (37.0-47.0); MEAN CORPUSCULAR VOLUME 91 FL (80-99); MONOCYTES % (AUTO) 9.5 % (1.0-10.0); NEUTROPHILS % (AUTO) 75.3 % (45.0-75.0); PLATELET COUNT 452 K/UL (150-450); RED BLOOD COUNT 4.24 M/UL (4.20-5.40); RED CELL DISTRIBUTION WIDTH 16.2 % (11.6-14.8); WHITE BLOOD COUNT 11.7 K/UL (4.8-10.8)
[2019-02-16 08:13] LABS: ALANINE AMINOTRANSFERASE 12 U/L (12-78); ALBUMIN 2.6 G/DL (3.4-5.0); ALBUMIN/GLOBULIN RATIO 0.6 (1.0-2.7); ALKALINE PHOSPHATASE 116 U/L (46-116); ANION GAP 3 mmol/L (5-15); ASPARTATE AMINO TRANSFERASE 17 U/L (15-37); BILIRUBIN,TOTAL 0.3 MG/DL (0.2-1.0); BLOOD UREA NITROGEN 47 mg/dL (7-18); CALCIUM 9.4 MG/DL (8.5-10.1); CARBON DIOXIDE 35 MMOL/L (21-32); CHLORIDE 99 MMOL/L (98-107); CREATININE 1.4 MG/DL (0.55-1.30); POTASSIUM 5.1 MMOL/L (3.5-5.1); SODIUM 137 MMOL/L (136-145)
[2019-02-16] MEDS: Wixela 250/50 Inhaler - 60 dose INH SCH ×2 (08:33→18:39)
--- NOTE | 2019-02-16 08:41 | Pulmonology Progress Note ---
Assessment/Plan Assessment/Plan 1. Congestive heart failure. 2. Diabetes, out of control. 3. Altered mental status due to CO2 narcosis 4. COPD with resp failure 5. Sleep apnea. 6. Atrial fibrillation, not on anticoagulants. 7. Coronary heart disease. 8. Aortic atherosclerosis. 9. 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, mild hypercarbia NO diamox; it will make her more acidotic steroid PO; this is causing high WBC DC plan to snf if duplex ok, stillpending disc w dtr, RN Subjective ROS Limited/Unobtainable: Yes Allergies: Coded Allergies: SULFA (SULFONAMIDE ANTIBIOTICS) (Unverified Allergy, Unknown, 02/08/19) Uncoded Allergies: SULFA (Allergy, Unknown, 02/07/19) Subjective lethargic not on bipap no distress no po not getting oob on o2 no fever Objective Last 24 Hour Vital Signs Date Time Temp Pulse Resp B/P (MAP) Pulse Ox O2 Delivery O2 Flow Rate FiO2 02/16/19 08:00 97.2 75 18 121/57 (78) 98 02/16/19 06:56 82 123/55 02/16/19 06:56 123/55 02/16/19 06:52 82 123/55 (77) 02/16/19 06:34 97 Bi-Pap 28 02/16/19 06:31 78 16 97 Facial 28 02/16/19 04:56 86 17 96 Facial 28 02/16/19 04:00 98.0 89 18 119/74 (89) 98 02/16/19 03:41 75 02/16/19 03:20 70 15 97 Facial 28 02/16/19 01:00 64 14 96 Facial 2.0 28 02/16/19 00:00 98.0 82 121/59 (79) 02/15/19 23:43 84 02/15/19 23:39 82 121/59 02/15/19 22:30 67 16 97 Facial 2.0 28 02/15/19 21:22 114/70 02/15/19 21:19 88 114/70 (85) 02/15/19 21:00 Nasal Cannula 2.0 Nasal Cannula 2.0 Nasal Cannula 2.0 02/15/19 20:18 95 02/15/19 20:00 98.5 86 18 118/75 (89) 97 02/15/19 19:05 70 18 96 Nasal Cannula 2.0 28 02/15/19 19:03 70 18 96 Nasal Cannula 2.0 28 02/15/19 19:03 96 Nasal Cannula 2.0 28 02/15/19 18:33 86 122/64 02/15/19 17:58 97.2 02/15/19 16:00 97.2 86 18 122/64 (83) 98 02/15/19 16:00 83 02/15/19 13:20 86 142/57 02/15/19 12:00 81 02/15/19 12:00 97.2 86 20 142/57 (85) 99 02/15/19 10:33 90 135/65 02/15/19 08:42 Bi-pap 28.0 Nasal Cannula 2.0 Nasal Cannula 2.0 Intake and Output 02/15/19 02/16/19 18:59 06:59 Intake Total 460 ml Output Total 1200 ml 700 ml Balance -740 ml -700 ml Intake Oral 460 ml Output Urine Total 1200 ml 700 ml General Appearance: WD/WN Respiratory/Chest: crackles/rales, rhonchi Cardiovascular: normal rate, regular rhythm Abdomen: soft, non tender, no organomegaly Neurologic/Psychiatric: disoriented Microbiology Date/Time Source Procedure Growth Status 02/14/19 18:00 External Cath Urine Culture - Preliminary Yeast Species Resulted Laboratory Tests 02/15/19 09:15: White Blood Count 15.4H, Red Blood Count 4.13L, Hemoglobin 11.4L, Hematocrit 37.6, Mean Corpuscular Volume 91, Mean Corpuscular Hemoglobin 27.6, Mean Corpuscular Hemoglobin Concent 30.3L, Red Cell Distribution Width 16.6H, Platelet Count 472H, Mean Platelet Volume 5.8L, Neutrophils (%) (Auto) 80.8H, Lymphocytes (%) (Auto) 9.2L, Monocytes (%) (Auto) 8.4, Eosinophils (%) (Auto) 1.0, Basophils (%) (Auto) 0.6, Sodium Level 140, Potassium Level 4.6, Chloride Level 104, Carbon Dioxide Level 35H, Anion Gap 1L, Blood Urea Nitrogen 42H, Creatinine 1.3, Estimat Glomerular Filtration Rate , Glucose Level 143H, Calcium Level 8.7, Total Bilirubin 0.3, Aspartate Amino Transf (AST/SGOT) 15, Alanine Aminotransferase (ALT/SGPT) 13, Alkaline Phosphatase 109, Total Protein 6.4, Albumin 2.5L, Globulin 3.9, Albumin/Globulin Ratio 0.6L 02/16/19 06:47: White Blood Count 11.7H, Red Blood Count 4.24, Hemoglobin 12.0, Hematocrit 38.8 , Mean Corpuscular Volume 91, Mean Corpuscular Hemoglobin 28.2, Mean Corpuscular Hemoglobin Concent 30.8L, Red Cell Distribution Width 16.2H, Platelet Count 452H, Mean Platelet Volume 6.0L, Neutrophils (%) (Auto) 75.3H, Lymphocytes (%) (Auto) 13.0L, Monocytes (%) (Auto) 9.5, Eosinophils (%) (Auto) 1.4, Basophils (%) (Auto) 0.9, Sodium Level 137, Potassium Level 5.1, Chloride Level 99, Carbon Dioxide Level 35H, Anion Gap 3L, Blood Urea Nitrogen 47H, Creatinine 1.4H, Estimat Glomerular Filtration Rate , Glucose Level 174H, Calcium Level 9.4, Total Bilirubin 0.3, Aspartate Amino Transf (AST/SGOT) 17, Alanine Aminotransferase (ALT/SGPT) 12, Alkaline Phosphatase 116, Total Protein 6.8, Albumin 2.6L, Globulin 4.2, Albumin/Globulin Ratio 0.6L, Thyroid Stimulating Hormone (TSH) 3.193 Current Medications Medications (Trade) Dose Ordered Sig/Willy Route PRN Reason Start Time Stop Time Status Last Admin Dose Admin Acetaminophen (Tylenol) 650 mg Q6H PRN ORAL Mild Pain/Temp > 100.5 02/12/19 18:15 03/11/19 18:14 02/14/19 18:24 Amlodipine Besylate (Norvasc) 5 mg DAILY ORAL 02/13/19 09:00 03/11/19 08:59 02/15/19 10:33 Apixaban (Eliquis) 5 mg BID ORAL 02/12/19 18:00 03/10/19 08:59 02/15/19 18:34 Aspirin (ASA) 81 mg DAILY ORAL 02/13/19 09:00 03/10/19 08:59 02/15/19 10:33 Atorvastatin Calcium (Lipitor) 80 mg BEDTIME ORAL 02/12/19 21:00 03/10/19 20:59 02/15/19 21:22 Clopidogrel Bisulfate (Plavix) 75 mg DAILY ORAL 02/13/19 09:00 03/10/19 08:59 02/15/19 10:33 Dextrose (Dextrose 50%) 25 ml Q30M PRN IV Hypoglycemia 02/12/19 18:15 03/14/19 07:14 Dextrose (Dextrose 50%) 50 ml Q30M PRN IV Hypoglycemia 02/12/19 18:15 03/14/19 07:14 Docusate Sodium (Colace) 100 mg TWICE A DAY ORAL 02/15/19 09:00 03/17/19 08:59 02/15/19 18:34 Hydralazine HCl (Apresoline) 50 mg EVERY 8 HOURS ORAL 02/12/19 22:00 03/10/19 05:59 02/16/19 06:56 Insulin Aspart (NovoLOG) BEFORE MEALS AND HS SUBQ 02/12/19 21:00 03/14/19 11:29 02/16/19 07:03 Insulin Detemir (Levemir) 12 units BID SUBQ 02/13/19 09:00 03/10/19 20:59 02/15/19 18:36 Metformin HCl (Glucophage) 500 mg BID ORAL 02/14/19 09:00 03/16/19 08:59 02/15/19 18:33 Metoprolol Tartrate (Lopressor) 50 mg Q6HR ORAL 02/12/19 18:00 03/11/19 18:29 02/16/19 06:56 Nateglinide (Starlix) 120 mg TIAC ORAL 02/13/19 11:30 03/15/19 11:29 02/16/19 06:57 Pantoprazole (Protonix) 40 mg ACBREAKFAST ORAL 02/14/19 06:30 03/16/19 06:29 02/16/19 06:56 Prednisone (predniSONE) 10 mg DAILY ORAL 02/14/19 09:00 03/16/19 08:59 02/15/19 10:32 Salmeterol Xinafoate/ Fluticasone (Advair 250/50 Diskus) 1 puffs BID INH 02/15/19 18:00 03/17/19 17:59 02/16/19 08:33 Sitagliptin Phosphate (Januvia) 25 mg ACBREAKFAST ORAL 02/14/19 06:30 03/16/19 06:29 02/16/19 06:56 Tramadol HCl (Ultram) 50 mg Q6H PRN ORAL Severe Pain (Pain Scale 7-10) 02/14/19 20:30 02/21/19 20:29 02/15/19 17:28 Citlaly Sandoval DO Feb 16, 2019 08:41
[2019-02-16] MEDS: Eliquis 5mg tablet ORAL SCH ×2 (09:05→18:00)
[2019-02-16] MEDS: Aspirin Baby 81mg ORAL SCH (09:06)
[2019-02-16] MEDS: Docusate 100mg cap ORAL SCH ×2 (09:06→17:32)
[2019-02-16] MEDS: metFORMIN 500mg tab ORAL SCH ×2 (09:06→17:33)
[2019-02-16] MEDS: Levemir Flexpen SUBQ SCH ×2 (09:18→17:45)
--- NOTE | 2019-02-16 15:38 | Cardiology Report ---
APPROVED REPORT EKG Measurement Heart [id number] Atrial fibrillation with occasional and with premature ventricular or aberrantly conducted complexes Right bundle branch block Left posterior fascicular block Bifascicular block Abnormal ECG
--- NOTE | 2019-02-16 16:05 | NUR ---
CASE MANAGEMENT: REVIEW SI: CHF . BACTERIURIA T 97.2 HR 103 RR 16 BP 121/57 SAT 100% NC/2L WBC 11.7 BUN 47 CR 1.4 GLUCOSE 174 IS: PROTONIX PO QD STARLIX PO QD PLAVIX PO QD LEVEMIR SUBQ BID ADVAIR INH BID ELIQUIS PO BID TELEMETRY UNIT STATUS DCP: PATIENT IS FROM HOME
--- NOTE | 2019-02-16 16:52 | Infectious Diseases Prog Note ---
Assessment/Plan Assessment/Plan ASSESSMENT AND PLAN: 1. klebsiella uti, sepsis, chf vs cap/aspiration pna/hcap, respiratory failure leukocytosis, fevers, recent iv steroids - change to vancomycin and zosyn - patient more sob today - monitor labs and chest x-ray, check sputum culture - leukocytosis better, chest x-ray with improved consolidation - f/u urine culture with yeast - likely colonizer and would not treat 2. Acute renal failure. 3. Anemia. 4. CHF. 5. Respiratory failure. 6. ICU care. 7. Diabetes. 8. Possible hypertension. 9. Blood sugar treatment per Endocrinology and primary. 10. Vent care per Dr. Brink and Dr. Sandoval. 11. Falls. 12. Sick sinus syndrome, pacemaker. 13. Sleep apnea, COPD. 14. Anemia. 15. Diastolic heart disease. 16. Coronary artery disease. 17. CHF. 18. Dyslipidemia. 19. Neuropathy. 20. Obesity. 21. Vitamin D deficiency. 22. Allergies to sulfa drugs. 23. MAR is noted. 24. Case was discussed with RN. 25. Social history negative. 26. Family history noncontributory. 27. Continue treatment per primary consultants. Subjective Constitutional: Reports: fatigue; Denies: fever HEENT: Reports: congestion - mild Respiratory: Reports: shortness of breath - mild Cardiovascular: Denies: chest pain Gastrointestinal/Abdominal: Denies: nausea, vomiting, diarrhea Genitourinary: Reports: other - + salas Neurologic: Denies: headache Psychiatric: Denies: depression Skin: Denies: rash Hematologic: Denies: bleeding Musculoskeletal: Denies: pain Allergies: Coded Allergies: SULFA (SULFONAMIDE ANTIBIOTICS) (Unverified Allergy, Unknown, 02/08/19) Uncoded Allergies: SULFA (Allergy, Unknown, 02/07/19) Objective Vital Signs Last 24 Hour Vital Signs Date Time Temp Pulse Resp B/P (MAP) Pulse Ox O2 Delivery O2 Flow Rate FiO2 02/16/19 16:00 98.2 82 16 132/61 (84) 93 02/16/19 14:12 110/65 02/16/19 12:00 97.2 84 16 128/57 (80) 100 02/16/19 11:56 82 02/16/19 11:32 103 127/57 02/16/19 09:06 62 121/57 02/16/19 09:00 Nasal Cannula 2.0 Nasal Cannula 2.0 Nasal Cannula 2.0 02/16/19 08:34 62 16 96 Nasal Cannula 2.0 28 02/16/19 08:34 62 16 96 Nasal Cannula 2.0 28 02/16/19 08:00 97.2 75 18 121/57 (78) 98 02/16/19 07:55 76 02/16/19 06:56 82 123/55 02/16/19 06:56 123/55 02/16/19 06:52 82 123/55 (77) 02/16/19 06:34 97 Bi-Pap 28 02/16/19 06:31 78 16 97 Facial 28 02/16/19 04:56 86 17 96 Facial 28 02/16/19 04:00 98.0 89 18 119/74 (89) 98 02/16/19 03:41 75 02/16/19 03:20 70 15 97 Facial 28 02/16/19 01:00 64 14 96 Facial 2.0 28 02/16/19 00:00 98.0 82 121/59 (79) 02/15/19 23:43 84 02/15/19 23:39 82 121/59 02/15/19 22:30 67 16 97 Facial 2.0 28 02/15/19 21:22 114/70 02/15/19 21:19 88 114/70 (85) 02/15/19 21:00 Nasal Cannula 2.0 Nasal Cannula 2.0 Nasal Cannula 2.0 02/15/19 20:18 95 02/15/19 20:00 98.5 86 18 118/75 (89) 97 02/15/19 19:05 70 18 96 Nasal Cannula 2.0 28 02/15/19 19:03 70 18 96 Nasal Cannula 2.0 28 02/15/19 19:03 96 Nasal Cannula 2.0 28 02/15/19 18:33 86 122/64 02/15/19 17:58 97.2 Height (Feet): 5 Height (Inches): 4.00 Weight (Pounds): 187 General Appearance: no acute distress HEENT: normocephalic, atraumatic, anicteric, mucous membranes moist Respiratory/Chest: no respiratory distress, no accessory muscle use, decreased breath sounds, crackles/rales, rhonchi - bilaterally Cardiovascular: normal rate, regular rhythm, no gallop/murmur, no JVD Abdomen: normal bowel sounds, soft, non tender, no organomegaly, non distended Genitourinary: other - + salas - urine slt cloudy Extremities: no cyanosis Skin: no rash Neurologic/Psychiatric: cell technician II-XII grossly normal, alert, responsive Lymphatic: no neck adenopathy Musculoskeletal: no effusion Objective Chest x-ray - 02/12/19 - Comparison: 02/10/2019 A single view chest radiograph was obtained. Findings: Pulmonary vascular congestion suspected. Lung volumes are low. Patient has been extubated. The left lung base is obscured. Pacemaker is noted. Bones are osteopenic. IMPRESSION: Suspected pulmonary vascular congestion Chest x-ray - 02/15/19 - Procedure: XRAY Chest 1v Indication: Dyspnea Technique: One view of the chest Comparison: 02/12/2019 Findings: There is a left chest bifocal pacemaker again demonstrated. There is decreased retrocardiac consolidation. There is persistent mild interstitial congestion. The heart is enlarged Impression: Persistent mild interstitial congestion, over 3 days Improved retrocardiac consolidation and possibly decreased left pleural fluid Microbiology Date/Time Source Procedure Growth Status 02/10/19 09:15 Blood Blood Culture - Final NO GROWTH AFTER 5 DAYS Complete 02/10/19 10:30 Sputum Induced Gram Stain - Final Complete 02/10/19 10:30 Sputum Induced Sputum Culture - Final NORMAL UPPER RESPIRATORY ROHAN PRESENT Complete 02/14/19 18:00 External Cath Urine Culture - Preliminary Yeast Species Resulted 02/08/19 04:30 Rectum - Final NO CARBAPENEM-RESISTANT ENTEROBACTERI... Complete Microbiology Date/Time Source Procedure Growth Status 02/14/19 18:00 External Cath Urine Culture - Preliminary Yeast Species Resulted Laboratory Tests Test 02/16/19 06:47 White Blood Count 11.7 K/UL (4.8-10.8) H Red Blood Count 4.24 M/UL (4.20-5.40) Hemoglobin 12.0 G/DL (12.0-16.0) Hematocrit 38.8 % (37.0-47.0) Mean Corpuscular Volume 91 FL (80-99) Mean Corpuscular Hemoglobin 28.2 PG (27.0-31.0) Mean Corpuscular Hemoglobin Concent 30.8 G/DL (32.0-36.0) L Red Cell Distribution Width 16.2 % (11.6-14.8) H Platelet Count 452 K/UL (150-450) H Mean Platelet Volume 6.0 FL (6.5-10.1) L Neutrophils (%) (Auto) 75.3 % (45.0-75.0) H Lymphocytes (%) (Auto) 13.0 % (20.0-45.0) L Monocytes (%) (Auto) 9.5 % (1.0-10.0) Eosinophils (%) (Auto) 1.4 % (0.0-3.0) Basophils (%) (Auto) 0.9 % (0.0-2.0) Sodium Level 137 MMOL/L (136-145) Potassium Level 5.1 MMOL/L (3.5-5.1) Chloride Level 99 MMOL/L (98-107) Carbon Dioxide Level 35 MMOL/L (21-32) H Anion Gap 3 mmol/L (5-15) L Blood Urea Nitrogen 47 mg/dL (7-18) H Creatinine 1.4 MG/DL (0.55-1.30) H Estimat Glomerular Filtration Rate mL/min (>60) Glucose Level 174 MG/DL (74-106) H Calcium Level 9.4 MG/DL (8.5-10.1) Total Bilirubin 0.3 MG/DL (0.2-1.0) Aspartate Amino Transf (AST/SGOT) 17 U/L (15-37) Alanine Aminotransferase (ALT/SGPT) 12 U/L (12-78) Alkaline Phosphatase 116 U/L (46-116) Total Protein 6.8 G/DL (6.4-8.2) Albumin 2.6 G/DL (3.4-5.0) L Globulin 4.2 g/dL Albumin/Globulin Ratio 0.6 (1.0-2.7) L Thyroid Stimulating Hormone (TSH) 3.193 uiU/mL (0.358-3.740) Current Medications Medications (Trade) Dose Ordered Sig/Willy Route PRN Reason Start Time Stop Time Status Last Admin Dose Admin Acetaminophen (Tylenol) 650 mg Q6H PRN ORAL Mild Pain/Temp > 100.5 02/12/19 18:15 03/11/19 18:14 02/14/19 18:24 Amlodipine Besylate (Norvasc) 5 mg DAILY ORAL 02/13/19 09:00 03/11/19 08:59 02/16/19 09:06 Apixaban (Eliquis) 5 mg BID ORAL 02/12/19 18:00 03/10/19 08:59 02/16/19 09:05 Aspirin (ASA) 81 mg DAILY ORAL 02/13/19 09:00 03/10/19 08:59 02/16/19 09:06 Atorvastatin Calcium (Lipitor) 80 mg BEDTIME ORAL 02/12/19 21:00 03/10/19 20:59 02/15/19 21:22 Clopidogrel Bisulfate (Plavix) 75 mg DAILY ORAL 02/13/19 09:00 03/10/19 08:59 02/16/19 09:06 Dextrose (Dextrose 50%) 25 ml Q30M PRN IV Hypoglycemia 02/12/19 18:15 03/14/19 07:14 Dextrose (Dextrose 50%) 50 ml Q30M PRN IV Hypoglycemia 02/12/19 18:15 03/14/19 07:14 Docusate Sodium (Colace) 100 mg TWICE A DAY ORAL 02/15/19 09:00 03/17/19 08:59 02/16/19 09:06 Hydralazine HCl (Apresoline) 50 mg EVERY 8 HOURS ORAL 02/12/19 22:00 03/10/19 05:59 02/16/19 14:12 Insulin Aspart (NovoLOG) BEFORE MEALS AND HS SUBQ 02/12/19 21:00 03/14/19 11:29 02/16/19 11:31 Insulin Detemir (Levemir) 12 units BID SUBQ 02/13/19 09:00 03/10/19 20:59 02/16/19 09:18 Metformin HCl (Glucophage) 500 mg BID ORAL 02/14/19 09:00 03/16/19 08:59 02/16/19 09:06 Metoprolol Tartrate (Lopressor) 50 mg Q6HR ORAL 02/12/19 18:00 03/11/19 18:29 02/16/19 11:32 Nateglinide (Starlix) 120 mg TIAC ORAL 02/13/19 11:30 03/15/19 11:29 02/16/19 11:31 Pantoprazole (Protonix) 40 mg ACBREAKFAST ORAL 02/14/19 06:30 03/16/19 06:29 02/16/19 06:56 Prednisone (predniSONE) 10 mg DAILY ORAL 02/14/19 09:00 03/16/19 08:59 02/16/19 09:06 Salmeterol Xinafoate/ Fluticasone (Advair 250/50 Diskus) 1 puffs BID INH 02/15/19 18:00 03/17/19 17:59 02/16/19 08:33 Sitagliptin Phosphate (Januvia) 25 mg ACBREAKFAST ORAL 02/14/19 06:30 03/16/19 06:29 02/16/19 06:56 Tramadol HCl (Ultram) 50 mg Q6H PRN ORAL Severe Pain (Pain Scale 7-10) 02/14/19 20:30 02/21/19 20:29 02/15/19 17:28 Jose Cutler MD Feb 16, 2019 16:52
[2019-02-16] MEDS ORDERED: Vancomycin 1.5gm Premix IVPB ONE (18:00)
--- NOTE | 2019-02-16 18:51 | NUR ---
To CASE MANGER: DEANNE NOTE: Elsy Gómez (Daughter) wish to speak to case management coordinator in regards to their mother discharge planning to SNF. Joni Gómez (son) .
--- NOTE | 2019-02-16 19:44 | NUR ---
HAND-OFF: Report given to ANDREW Cook. patient is resting in bed. patient states she has no more nausea. Patient request to be off the bipap to eat dinner.
--- NOTE | 2019-02-16 20:11 | NUR ---
NURSE NOTES: Received report from ANDREW Cook. Patient is asleep lying semi-neal's; resting comfortably. Arousable to shaking. No signs of acute distress noted; denies pain at this time. On BiPAP. AOx3-4; able to make needs known. Primarily Croatian speaking. Checked IV site; patent and flushed. No erythema, bleeding, or infiltration noted. Turner catheter draining well to gravity. Bed at lowest position, brakes on, siderails up x3. Call light within reach. Will continue to monitor.
--- NOTE | 2019-02-16 21:06 | NUR ---
NURSE NOTES: Received new orders from Dr. Ortiz including increasing Januvia dose from 25mg to 50mg PO. Noted and carried out.
[2019-02-16] MEDS: Atorvastatin 80mg tab ORAL SCH (21:19)
--- NOTE | 2019-02-16 21:45 | NUR ---
HAND-OFF: Report given to ANDREW Mendez. Patient is asleep lying semi-neal's; resting comfortably. On BiPAP. In stable condition.
--- NOTE | 2019-02-16 22:00 | NUR ---
NURSE NOTES: Pt is resting in bed in supine position, on bipap. Pt is alert and oriented x4. Has L chest pacemaker, AV paced. In no acute distress, breathing regular, even and unlabored. Has salas catheter in place. Was told to endorse to nurse that when pt will be discharged, discharging RN will need to contact [employer] insurance to inform them to arrange Bipap if needed. Britely works weekends and is waiting for a call back to finalize arrangements.
[2019-02-17] VITALS: BP 109/77
--- NOTE | 2019-02-17 00:30 | Progress Note ---
DATE: 02/15/2019 This is a late entry. SUBJECTIVE: The case was discussed with the manager pathology. Diamox was discontinued to avoid acidosis. The patient remains intermittently on BiPAP support. OBJECTIVE: VITAL SIGNS: Blood pressure 114/74, pulse 72, and respirations 18. Afebrile. LUNGS: Diminished breath sounds. CARDIAC: Regular rhythm and rate. Normal S1, S2 with a 1/6 systolic murmur at apex. ABDOMEN: Soft. EXTREMITIES: Trace dependent edema noted. DIAGNOSTIC DATA: Venous duplex scan pending. IMPRESSION: 1. Chronic obstructive pulmonary disease exacerbation. 2. Status post respiratory failure. 3. Acute on chronic diastolic congestive heart failure. 4. Degenerative valve disease. 5. Paroxysmal atrial fibrillation. 6. Cerebrovascular disease. PLAN: 1. Continue apixaban for cardioembolic prophylaxis. 2. Maintain current cardiovascular regimen. 3. If blood pressure parameters continue to decrease, doses of the antihypertensive will have to be decreased as well. 4. Await venous duplex scan. Dominic Martínez M.D. DR: DOROTHY JOB#: [id number] CC:
--- NOTE | 2019-02-17 00:45 | Progress Note ---
DATE: 02/16/2019 CARDIOLOGY PROGRESS NOTE SUBJECTIVE: The patient is withdrawn. Occasionally lethargic. No shortness of breath. Not on BiPAP presently. OBJECTIVE: VITAL SIGNS: Blood pressure 121/57, pulse 75, and respiratory rate 18. LUNGS: Diminished breath sounds. No wheezes. CARDIAC: Regular rhythm and rate. Normal S1 and S2 with a 1/6 systolic apical murmur. ABDOMEN: Soft. EXTREMITIES: Trace edema. LABORATORY DATA: White count 11.7 and hemoglobin 12. Sodium 137, potassium 5.1, BUN 47, and creatinine 1.4. IMPRESSION: 1. Respiratory failure. 2. Healthcare-acquired pneumonia. 3. Paroxysmal atrial fibrillation, on apixaban. 4. Acute on chronic diastolic congestive heart failure. PLAN: 1. Decrease the dose of amlodipine in view of low range blood pressure. 2. Diuresis to be determined based on clinical parameters. 3. Continue full anticoagulation. 4. Steroid taper. 5. Await the venous duplex study. Dominic Martínez M.D. DR: CLIFF JOB#: [id number] CC:
[2019-02-17] MEDS: Metoprolol Tartrate 50mg tab ORAL SCH ×5 (01:18→23:30)
--- NOTE | 2019-02-17 02:15 | Geriatric Medicine Prog Note ---
DATE: 02/16/2019 SUBJECTIVE: The patient is currently improved, with diabetes better control. OBJECTIVE: VITAL SIGNS: Blood pressure 126/76, pulse 96, and respiratory rate 18 RESP:Cler,[facility]_. LABORATORY: Glucose _170_. ASSESSMENT: Diabetes Mellitus Stable_. PLAN: sliding scdale Lispro QID ac an dHYS.. Hemoglobin A1 ordered in a.m. Blu Ortiz M.D. DR: MARIA INES JOB#: [id number] CC: TRENT
[2019-02-17 04:00] VITALS: BP 126/66
[2019-02-17] MEDS: HydrALAZINE 50mg tab ORAL SCH ×3 (05:37→22:00)
[2019-02-17] MEDS: sitaGLIPtin 50mg tab ORAL SCH (05:37)
[2019-02-17] MEDS: NovoLOG Insulin Flexpen SUBQ SCH ×4 (06:36→20:37)
--- NOTE | 2019-02-17 07:16 | NUR ---
HAND-OFF: Report given to ANDREW Keenan.
--- NOTE | 2019-02-17 07:30 | NUR ---
NURSE NOTES: Received report from Taya Mendez. Pt is sitting in bed. Pt is AAOX 2. Bed is in lowest position, side rails up X2, and call light is within reach. Will continue to monitor.
[2019-02-17 08:00] VITALS: BP 127/57
--- NOTE | 2019-02-17 08:13 | Pulmonology Progress Note ---
Assessment/Plan Assessment/Plan 1. Congestive heart failure. 2. Diabetes, out of control. 3. Altered mental status due to CO2 narcosis 4. COPD with resp failure 5. Sleep apnea. 6. Atrial fibrillation, not on anticoagulants. 7. Coronary heart disease. 8. Aortic atherosclerosis. 9. 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, mild hypercarbia NO diamox; it will make her more acidotic steroid PO; this is causing high WBC DC plan to snf if duplex ok, not ordered so it was placed today disc w dtr, RN Subjective Neurologic: Reports: headache Allergies: Coded Allergies: SULFA (SULFONAMIDE ANTIBIOTICS) (Unverified Allergy, Unknown, 02/08/19) Uncoded Allergies: SULFA (Allergy, Unknown, 02/07/19) Subjective lethargic but awake complains of FOOTE today, had some Nausea yesterday not on bipap no distress tolerating po not getting oob on o2 no fever Objective Last 24 Hour Vital Signs Date Time Temp Pulse Resp B/P (MAP) Pulse Ox O2 Delivery O2 Flow Rate FiO2 02/17/19 07:41 96 Nasal Cannula 2.0 28 02/17/19 05:37 126/66 02/17/19 05:36 82 126/66 02/17/19 04:00 82 02/17/19 04:00 98.9 68 17 126/66 (86) 95 02/17/19 01:18 77 110/70 02/17/19 00:00 85 02/17/19 00:00 98.6 79 18 109/77 (88) 99 02/16/19 23:05 77 15 96 Facial 28 02/16/19 22:00 Nasal Cannula 2.0 Nasal Cannula 2.0 Nasal Cannula 2.0 02/16/19 21:24 102/65 02/16/19 21:08 72 14 97 Facial 28 02/16/19 20:00 95 02/16/19 20:00 98.3 76 16 102/65 (77) 98 02/16/19 18:44 94 Bi-Pap 28 02/16/19 18:43 74 16 95 Bi-Pap 28 02/16/19 18:43 74 13 94 Facial 28 02/16/19 18:39 79 13 94 Bi-Pap 28 02/16/19 16:53 101 13 97 Facial 28 02/16/19 16:00 98.2 82 16 132/61 (84) 93 8/3/19 15:48 87 02/16/19 14:12 110/65 02/16/19 12:00 97.2 84 16 128/57 (80) 100 02/16/19 11:56 82 02/16/19 11:32 103 127/57 02/16/19 09:06 62 121/57 02/16/19 09:00 Nasal Cannula 2.0 Nasal Cannula 2.0 Nasal Cannula 2.0 02/16/19 08:34 62 16 96 Nasal Cannula 2.0 28 02/16/19 08:34 62 16 96 Nasal Cannula 2.0 28 Intake and Output 02/16/19 02/17/19 18:59 06:59 Intake Total 440 ml Output Total 600 ml 625 ml Balance -160 ml -625 ml Intake Oral 440 ml Output Urine Total 600 ml 625 ml General Appearance: WD/WN Respiratory/Chest: rhonchi Cardiovascular: normal rate, regular rhythm Neurologic/Psychiatric: responsive, disoriented Microbiology Date/Time Source Procedure Growth Status 02/14/19 18:00 External Cath Urine Culture - Final Sienna Albicans Complete Laboratory Tests 02/17/19 06:36: White Blood Count [Pending], Red Blood Count [Pending], Hemoglobin [Pending], Hematocrit [Pending], Mean Corpuscular Volume [Pending], Mean Corpuscular Hemoglobin [Pending], Mean Corpuscular Hemoglobin Concent [Pending], Red Cell Distribution Width [Pending], Platelet Count [Pending], Mean Platelet Volume [ Pending], Neutrophils (%) (Auto) [Pending], Lymphocytes (%) (Auto) [Pending], Monocytes (%) (Auto) [Pending], Eosinophils (%) (Auto) [Pending], Basophils (%) (Auto) [Pending], Sodium Level [Pending], Potassium Level [Pending], Chloride Level [Pending], Carbon Dioxide Level [Pending], Blood Urea Nitrogen [Pending], Creatinine [Pending], Estimat Glomerular Filtration Rate [Pending], Glucose Level [Pending], Hemoglobin A1c [Pending], Calcium Level [Pending], Total Bilirubin [Pending], Aspartate Amino Transf (AST/SGOT) [Pending], Alanine Aminotransferase (ALT/SGPT) [Pending], Alkaline Phosphatase [Pending], Total Protein [Pending], Albumin [Pending], Globulin [Pending] Current Medications Medications (Trade) Dose Ordered Sig/Willy Route PRN Reason Start Time Stop Time Status Last Admin Dose Admin Acetaminophen (Tylenol) 650 mg Q6H PRN ORAL Mild Pain/Temp > 100.5 02/12/19 18:15 03/11/19 18:14 02/14/19 18:24 Amlodipine Besylate (Norvasc) 5 mg DAILY ORAL 02/13/19 09:00 03/11/19 08:59 02/16/19 09:06 Apixaban (Eliquis) 5 mg BID ORAL 02/12/19 18:00 03/10/19 08:59 02/16/19 09:05 Aspirin (ASA) 81 mg DAILY ORAL 02/13/19 09:00 03/10/19 08:59 02/16/19 09:06 Atorvastatin Calcium (Lipitor) 80 mg BEDTIME ORAL 02/12/19 21:00 03/10/19 20:59 02/16/19 21:19 Clopidogrel Bisulfate (Plavix) 75 mg DAILY ORAL 02/13/19 09:00 03/10/19 08:59 02/16/19 09:06 Dextrose (Dextrose 50%) 25 ml Q30M PRN IV Hypoglycemia 02/12/19 18:15 03/14/19 07:14 Dextrose (Dextrose 50%) 50 ml Q30M PRN IV Hypoglycemia 02/12/19 18:15 03/14/19 07:14 Docusate Sodium (Colace) 100 mg TWICE A DAY ORAL 02/15/19 09:00 03/17/19 08:59 02/16/19 09:06 Hydralazine HCl (Apresoline) 50 mg EVERY 8 HOURS ORAL 02/12/19 22:00 03/10/19 05:59 02/17/19 05:37 Insulin Aspart (NovoLOG) BEFORE MEALS AND HS SUBQ 02/12/19 21:00 03/14/19 11:29 02/17/19 06:36 Insulin Detemir (Levemir) 12 units BID SUBQ 02/13/19 09:00 03/10/19 20:59 02/16/19 17:45 Metformin HCl (Glucophage) 500 mg BID ORAL 02/14/19 09:00 03/16/19 08:59 02/16/19 09:06 Metoprolol Tartrate (Lopressor) 50 mg Q6HR ORAL 02/12/19 18:00 03/11/19 18:29 02/17/19 05:36 Nateglinide (Starlix) 120 mg TIAC ORAL 02/13/19 11:30 03/15/19 11:29 02/17/19 05:37 Ondansetron HCl (Zofran) 4 mg Q4H PRN IVP Nausea & Vomiting 02/16/19 17:15 03/18/19 17:14 02/16/19 17:38 Pantoprazole (Protonix) 40 mg ACBREAKFAST ORAL 02/14/19 06:30 03/16/19 06:29 02/17/19 05:37 Piperacillin Sod/ Tazobactam Sod 3.375 gm/Dextrose 100 ml @ 25 mls/hr EVERY 8 HOURS IVPB 02/16/19 20:00 02/21/19 19:59 02/17/19 05:35 Prednisone (predniSONE) 10 mg DAILY ORAL 02/14/19 09:00 03/16/19 08:59 02/16/19 09:06 Salmeterol Xinafoate/ Fluticasone (Advair 250/50 Diskus) 1 puffs BID INH 02/15/19 18:00 03/17/19 17:59 02/16/19 18:39 Sitagliptin Phosphate (Januvia) 50 mg ACBREAKFAST ORAL 02/17/19 06:30 03/19/19 06:29 02/17/19 05:37 Tramadol HCl (Ultram) 50 mg Q6H PRN ORAL Severe Pain (Pain Scale 7-10) 02/14/19 20:30 02/21/19 20:29 02/15/19 17:28 Vancomycin HCl (Vanco rx to dose) 1 ea DAILY PRN MISC Per rx protocol 02/16/19 17:00 03/18/19 16:59 Vancomycin HCl 500 mg/Dextrose 110 ml @ 110 mls/hr Q24H IVPB 02/17/19 18:00 02/22/19 17:59 Citlaly Sandoval DO Feb 17, 2019 08:13
[2019-02-17 08:17] LABS: BASOPHILS % (AUTO) 0.4 % (0.0-2.0); EOSINOPHILS % (AUTO) 0.6 % (0.0-3.0); HEMATOCRIT 34.6 % (37.0-47.0); HEMOGLOBIN 10.6 G/DL (12.0-16.0); LYMPHOCYTES % (AUTO) 5.9 % (20.0-45.0); MEAN CORPUSCULAR VOLUME 91 FL (80-99); MONOCYTES % (AUTO) 8.3 % (1.0-10.0); NEUTROPHILS % (AUTO) 84.7 % (45.0-75.0); PLATELET COUNT 406 K/UL (150-450); RED BLOOD COUNT 3.79 M/UL (4.20-5.40); RED CELL DISTRIBUTION WIDTH 15.8 % (11.6-14.8); WHITE BLOOD COUNT 15.2 K/UL (4.8-10.8)
[2019-02-17] MEDS: metFORMIN 500mg tab ORAL SCH ×2 (08:32→17:26)
[2019-02-17] MEDS: Docusate 100mg cap ORAL SCH ×2 (08:32→17:26)
[2019-02-17] MEDS: Aspirin Baby 81mg ORAL SCH (08:32)
[2019-02-17] MEDS: Eliquis 5mg tablet ORAL SCH ×2 (08:33→17:26)
[2019-02-17] MEDS: Acetaminophen 650mg/20.3ml ORAL PRN (08:33)
--- NOTE | 2019-02-17 08:57 | Diagnostic Imaging Report ---
EXAM: XR Chest, 1 View CLINICAL HISTORY: INFECT TECHNIQUE: Frontal view of the chest. COMPARISON: Chest x-ray, 02/15/19 754 FINDINGS: Lungs: Hypoventilatory lungs. Interval worsening mild interstitial and vascular congestion. Pleural space: Unremarkable. No pneumothorax. Heart: Cardiomegaly. Mediastinum: Unremarkable. Bones/joints: Unremarkable. Tubes, lines and devices: Cardiac pacemaker. IMPRESSION: Hypoventilatory lungs. Interval worsening mild interstitial and vascular congestion.
[2019-02-17] MEDS: Levemir Flexpen SUBQ SCH ×2 (09:09→17:28)
[2019-02-17] MEDS: Wixela 250/50 Inhaler - 60 dose INH SCH ×2 (09:18→19:40)
[2019-02-17 10:59] LABS: ALANINE AMINOTRANSFERASE 14 U/L (12-78); ALBUMIN 2.3 G/DL (3.4-5.0); ALBUMIN/GLOBULIN RATIO 0.6 (1.0-2.7); ALKALINE PHOSPHATASE 103 U/L (46-116); ANION GAP 4 mmol/L (5-15); ASPARTATE AMINO TRANSFERASE 15 U/L (15-37); BILIRUBIN,TOTAL 0.5 MG/DL (0.2-1.0); BLOOD UREA NITROGEN 37 mg/dL (7-18); CARBON DIOXIDE 34 MMOL/L (21-32); CHLORIDE 99 MMOL/L (98-107); CREATININE 1.3 MG/DL (0.55-1.30); POTASSIUM 5.6 MMOL/L (3.5-5.1); SODIUM 137 MMOL/L (136-145)
--- NOTE | 2019-02-17 11:48 | NUR ---
NURSE NOTES: Pts potassium is 5.6. Called Dr. Sandoval and informed her. Orders given and carried out. Will continue to monitor.
[2019-02-17 12:00] VITALS: BP 100/69
[2019-02-17] MEDS ORDERED: Sodium Polystyrene Sulfonate 15gm Powder ORAL SCH (12:00)
[2019-02-17] MEDS ORDERED: NS 275ml ONE (15:35)
[2019-02-17] MEDS ORDERED: Tubing IV Secondary IV ONE (15:35)
[2019-02-17 16:00] VITALS: BP 125/70
--- NOTE | 2019-02-17 16:34 | NUR ---
CASE MANAGEMENT: REVIEW SI: CHF . BACTERIURIA T 97.1 HR 62 RR 18 BP 125/70 SAT 96% NC/2L WBC 15.2 H/H 10.6/34.6 K 5.6 GLUCOSE 200 IS: PROTONIX PO QD STARLIX PO QD PLAVIX PO QD LEVEMIR SUBQ BID ADVAIR INH BID ELIQUIS PO BID TELEMETRY UNIT STATUS DCP: PATIENT IS FROM HOME
[2019-02-17] MEDS ORDERED: Vancomycin 500mg/D5W 110ml IVPB SCH ×2 (18:00)
--- NOTE | 2019-02-17 19:39 | NUR ---
HAND-OFF: Report given to ANDREW Trejo. Plan of care endorsed
--- NOTE | 2019-02-17 19:48 | NUR ---
NURSE NOTES: RECEIVED PATIENT RESTING IN BED, NO COMPLAINTS OF PAIN AT THIS TIME. FALL PRECAUTIONS IN PLACE: CALL LIGHT AND BEDSIDE TABLE WITHIN REACH, BED IN LOW POSITION AND BED ALARM ON. FAMILY AT BEDSIDE. PLAN OF CARE REVIEWED.
[2019-02-17 20:00] VITALS: BP 101/57
[2019-02-17] MEDS: Atorvastatin 80mg tab ORAL SCH (20:35)
--- NOTE | 2019-02-17 22:15 | NUR ---
NURSE NOTES: PATIENT KEPT CLEAN AND DRY, PERINEAL CARE GIVEN, LINEN CHANGED. PATIENT TURNED AND REPOSITIONED.
--- NOTE | 2019-02-17 23:10 | NUR ---
RESPIRATORY NOTE: Placed pt on bipap on settings of 12/5 FIO2 28%. Foam tape around pt's facial mask to prevent redness/breakdown. Bipap is plugged into red outlet. Will continue to monitor pt's progress.
[2019-02-17] MEDS ORDERED: Fluconazole 100mg tab ORAL SCH (23:30)
[2019-02-18] VITALS: BP_SYST 118; BP_SYST 188; BP_DIAS 77
--- NOTE | 2019-02-18 00:15 | Progress Note ---
DATE: 02/17/2019 Cardiology Progress Note SUBJECTIVE: The patient has a headache. She has not been out of bed much. She is in no respiratory distress. She has not been on BiPAP. She is at times withdrawn and lethargic. PHYSICAL EXAMINATION: VITAL SIGNS: Blood pressure 126/66, pulse 82, respiratory rate 17. Afebrile. Saturation on 2 L nasal cannula 96%. LUNGS: Diminished breath sounds. No wheezes. HEART: Regular rhythm rate. Normal S1, S2 with a fourth heart sound. ABDOMEN: Soft. No edema. LABORATORY AND DIAGNOSTIC DATA: Urine culture has Sienna. White count 15, potassium 5.6, BUN 37, creatinine 1.3. Albumin 2.3. IMPRESSION: 1. Fungal cystitis. 2. Status post respiratory failure. 3. Acute on chronic respiratory acidosis. 4. Conduction system disease of the heart. 5. Paroxysmal atrial fibrillation. 6. Hypertensive heart disease. 7. Chronic diastolic congestive heart failure. PLAN: 1. Continue apixaban for cardioembolic prophylaxis. 2. Remove Turner catheter. 3. Start Diflucan. 4. Respiratory therapy per window systems administrator. 5. Awaiting venous duplex scan. 6. Titrate diabetic regimen. 7. Discontinue Plavix to decrease bleeding risk in this clinical setting. Dominic Martínez M.D. DR: MARIA ELENA JOB#: [id number] CC:
[2019-02-18 04:00] VITALS: BP 144/76
[2019-02-18] MEDS: Metoprolol Tartrate 50mg tab ORAL SCH ×3 (05:36→18:03)
[2019-02-18] MEDS: HydrALAZINE 50mg tab ORAL SCH ×3 (05:36→22:11)
[2019-02-18] MEDS: sitaGLIPtin 50mg tab ORAL SCH (06:02)
[2019-02-18] MEDS: NovoLOG Insulin Flexpen SUBQ SCH ×4 (06:04→22:13)
--- NOTE | 2019-02-18 06:52 | NUR ---
NURSE NOTES: F/C DISCONTINUED AT 0345 ORDERED. PATIENT TOLERATED PROCEDURE WELL.
--- NOTE | 2019-02-18 07:10 | NUR ---
HAND-OFF: Report given to Ebenezer SCHOFIELD RN. PATIENT HAVING BREAKFAST, NO SIGNS OF DISTRESS NOTED.
--- NOTE | 2019-02-18 07:29 | NUR ---
NURSE NOTES: Received report from ANDREW Trejo. Pt is sitting up in bed. Pt appears confused. She states that she wants to be in a room in the front not in the back and that she has been waiting over 3 hours. When asked to elaborate, she says the same thing. Bed is in lowest position, side rails up X2, and call light is within reach. WIll continue to monitor.
[2019-02-18 07:44] LABS: BASOPHILS % (AUTO) 0.6 % (0.0-2.0); EOSINOPHILS % (AUTO) 2.1 % (0.0-3.0); HEMATOCRIT 32.1 % (37.0-47.0); HEMOGLOBIN 9.9 G/DL (12.0-16.0); MEAN CORPUSCULAR VOLUME 91 FL (80-99); NEUTROPHILS % (AUTO) 71.4 % (45.0-75.0); PLATELET COUNT 408 K/UL (150-450); RED BLOOD COUNT 3.54 M/UL (4.20-5.40); RED CELL DISTRIBUTION WIDTH 15.5 % (11.6-14.8); WHITE BLOOD COUNT 10.9 K/UL (4.8-10.8)
[2019-02-18 08:00] VITALS: BP 143/100
[2019-02-18 08:31] LABS: ALANINE AMINOTRANSFERASE 13 U/L (12-78); ALBUMIN 2.4 G/DL (3.4-5.0); ALBUMIN/GLOBULIN RATIO 0.6 (1.0-2.7); ALKALINE PHOSPHATASE 103 U/L (46-116); ANION GAP 3 mmol/L (5-15); ASPARTATE AMINO TRANSFERASE 14 U/L (15-37); BILIRUBIN,TOTAL 0.4 MG/DL (0.2-1.0); BLOOD UREA NITROGEN 35 mg/dL (7-18); CALCIUM 8.8 MG/DL (8.5-10.1); CARBON DIOXIDE 36 MMOL/L (21-32); CHLORIDE 99 MMOL/L (98-107); CREATININE 1.4 MG/DL (0.55-1.30); POTASSIUM 3.9 MMOL/L (3.5-5.1); SODIUM 138 MMOL/L (136-145)
[2019-02-18] MEDS: Wixela 250/50 Inhaler - 60 dose INH SCH ×2 (08:39→19:43)
[2019-02-18] MEDS: metFORMIN 500mg tab ORAL SCH ×2 (08:48→18:03)
[2019-02-18] MEDS: Fluconazole 100mg tab ORAL SCH (08:48)
[2019-02-18] MEDS: Aspirin Baby 81mg ORAL SCH (08:49)
[2019-02-18] MEDS: Eliquis 5mg tablet ORAL SCH ×2 (08:49→18:04)
[2019-02-18] MEDS: Docusate 100mg cap ORAL SCH ×2 (08:49→18:04)
[2019-02-18] MEDS: Levemir Flexpen SUBQ SCH ×2 (08:51→18:05)
--- NOTE | 2019-02-18 09:00 | NUR ---
NURSE NOTES: Per Dr. Brink, ok to DC IV antibiotics. Also, He stated that he "will DC the patient to a rehab. He will not DC her home. If family does not want to send her to rehab, pt can leave AMA" Left message for Karen in case mgnt. WIll await call back.
--- NOTE | 2019-02-18 10:53 | NUR ---
NURSE NOTES: Spoke to kathy in case mgnt. She stated that she will call the daughter and talk with her.
[2019-02-18 12:00] VITALS: BP 103/51
--- NOTE | 2019-02-18 12:21 | NUR ---
RD ASSESSMENT & RECOMMENDATIONS SEE CARE ACTIVITY FOR COMPLETE ASSESSMENT DAILY ESTIMATED NEEDS: Needs based on Pulmonary, DM 58.9kg adj 25-30 kcals/kg 2098-5499 total kcals 1-1.5 g protein/kg 59-88 g total protein Fluid per MD NUTRITION DIAGNOSIS: 1) Swallowing difficulty r/t respiratory distress as evidenced by s/p intubation, now on NGT feeds.(INACTIVE) 2) Altered nutrition related lab values r/t clinical status as evidenced by elev WBC (21.9-> 15.9), elev pH (7.686-> now wnl), elev BUN (66), elev Creat (2.8-> 1.6), elev BG on adm now improved (424->151), A1C 10.0, elev BNP (4464). (UPDATED) CURRENT DIET:[facility] MED PO DIET RECOMMENDATIONS: CCHO LOW / texture per CHEST PAIN COORDINATOR ADDITIONAL RECOMMENDATIONS: 1) Monitor tolerance to oral diet , % po intake-> add Glucerna daily 2) Monitor lytes, BG daily 3) On lasix, daily calibrated bed scale wts for accuracy 4) CHEST PAIN COORDINATOR eval upon extubation for appropriate texture Per RN pt swallows pills without difficulty
--- NOTE | 2019-02-18 13:41 | Infectious Diseases Prog Note ---
Assessment/Plan Assessment/Plan ASSESSMENT AND PLAN: 1. klebsiella uti, sepsis, chf > cap/aspiration pna/hcap, respiratory failure leukocytosis, fevers, recent iv steroids - vancomycin and zosyn discontinued - s/p full tx for uti - continue tx for chf - monitor labs and chest x-ray - chest x-ray with pvc - f/u urine culture with yeast - likely colonizer and would not treat 2. Acute renal failure. 3. Anemia. 4. CHF. 5. Respiratory failure. 6. ICU care. 7. Diabetes. 8. Possible hypertension. 9. Blood sugar treatment per Endocrinology and primary. 10. Vent care per Dr. Brink and Dr. Sandoval. 11. Falls. 12. Sick sinus syndrome, pacemaker. 13. Sleep apnea, COPD. 14. Anemia. 15. Diastolic heart disease. 16. Coronary artery disease. 17. CHF. 18. Dyslipidemia. 19. Neuropathy. 20. Obesity. 21. Vitamin D deficiency. 22. Allergies to sulfa drugs. 23. MAR is noted. 24. Case was discussed with RN. 25. Social history negative. 26. Family history noncontributory. 27. Continue treatment per primary consultants. Subjective Constitutional: Reports: other - + breathing mask; Denies: fever HEENT: Reports: congestion Respiratory: Reports: shortness of breath Cardiovascular: Denies: chest pain Gastrointestinal/Abdominal: Denies: nausea, vomiting, diarrhea Genitourinary: Reports: other - no salas Neurologic: Denies: headache Psychiatric: Denies: depression Skin: Denies: rash Hematologic: Denies: bleeding Musculoskeletal: Denies: pain Allergies: Coded Allergies: SULFA (SULFONAMIDE ANTIBIOTICS) (Unverified Allergy, Unknown, 02/08/19) Uncoded Allergies: SULFA (Allergy, Unknown, 02/07/19) Objective Vital Signs Last 24 Hour Vital Signs Date Time Temp Pulse Resp B/P (MAP) Pulse Ox O2 Delivery O2 Flow Rate FiO2 02/18/19 12:46 59 143/62 02/18/19 12:00 98.2 90 16 103/51 (68) 97 02/18/19 12:00 86 02/18/19 09:00 Nasal Cannula 2.0 Simple Mask 2.0 Nasal Cannula 2.0 02/18/19 08:49 73 143/100 02/18/19 08:39 94 18 97 Nasal Cannula 2.0 28 02/18/19 08:39 94 18 97 Nasal Cannula 2.0 28 02/18/19 08:00 98.6 73 16 143/100 (114) 98 02/18/19 08:00 91 02/18/19 07:00 97 Nasal Cannula 2.0 02/18/19 05:36 78 144/76 02/18/19 05:36 144/76 02/18/19 05:23 78 17 98 Facial 28 02/18/19 04:00 98.2 81 17 144/76 (98) 100 02/18/19 04:00 88 02/18/19 02:31 81 18 99 Facial 28 02/18/19 00:32 84 16 98 Facial 28 02/18/19 00:00 98.1 82 19 118/77 (91) 98 02/18/19 00:00 99 02/17/19 23:30 82 118/77 02/17/19 23:08 85 17 97 Facial 28 02/17/19 22:00 101/57 02/17/19 21:00 Nasal Cannula 2.0 Nasal Cannula 2.0 Nasal Cannula 2.0 02/17/19 20:00 83 02/17/19 20:00 98.0 87 17 101/57 (72) 92 02/17/19 19:42 88 18 96 Nasal Cannula 2.0 02/17/19 19:42 96 Nasal Cannula 2.0 02/17/19 19:40 88 18 96 Nasal Cannula 2.0 02/17/19 17:27 82 125/70 02/17/19 16:00 82 02/17/19 16:00 97.1 62 18 125/70 (88) 97 02/17/19 14:31 100/69 Height (Feet): 5 Height (Inches): 4.00 Weight (Pounds): 191 General Appearance: no acute distress HEENT: normocephalic, atraumatic, anicteric Respiratory/Chest: crackles/rales, rhonchi - bilaterally Cardiovascular: normal rate, no gallop/murmur, no JVD Abdomen: normal bowel sounds, soft, non tender, no organomegaly, non distended Genitourinary: other - no salas Extremities: no cyanosis Skin: no rash Neurologic/Psychiatric: commodity analyst II-XII grossly normal, alert, responsive Lymphatic: no neck adenopathy Musculoskeletal: no effusion Objective Chest x-ray - 02/12/19 - Comparison: 02/10/2019 A single view chest radiograph was obtained. Findings: Pulmonary vascular congestion suspected. Lung volumes are low. Patient has been extubated. The left lung base is obscured. Pacemaker is noted. Bones are osteopenic. IMPRESSION: Suspected pulmonary vascular congestion Chest x-ray - 02/15/19 - Procedure: XRAY Chest 1v Indication: Dyspnea Technique: One view of the chest Comparison: 02/12/2019 Findings: There is a left chest bifocal pacemaker again demonstrated. There is decreased retrocardiac consolidation. There is persistent mild interstitial congestion. The heart is enlarged Impression: Persistent mild interstitial congestion, over 3 days Improved retrocardiac consolidation and possibly decreased left pleural fluid Chest x-ray - 02/17/19 - Frontal view of the chest. COMPARISON: Chest x-ray, 02/15/19 754 FINDINGS: Lungs: Hypoventilatory lungs. Interval worsening mild interstitial and vascular congestion. Pleural space: Unremarkable. No pneumothorax. Heart: Cardiomegaly. Mediastinum: Unremarkable. Bones/joints: Unremarkable. Tubes, lines and devices: Cardiac pacemaker. IMPRESSION: Hypoventilatory lungs. Interval worsening mild interstitial and vascular congestion. Microbiology Date/Time Source Procedure Growth Status 02/10/19 09:15 Blood Blood Culture - Final NO GROWTH AFTER 5 DAYS Complete 02/10/19 10:30 Sputum Induced Gram Stain - Final Complete 02/10/19 10:30 Sputum Induced Sputum Culture - Final NORMAL UPPER RESPIRATORY ROHAN PRESENT Complete 02/14/19 18:00 External Cath Urine Culture - Final Sienna Albicans Complete 02/08/19 04:30 Rectum - Final NO CARBAPENEM-RESISTANT ENTEROBACTERI... Complete Laboratory Tests Test 02/18/19 06:06 White Blood Count 10.9 K/UL (4.8-10.8) H Red Blood Count 3.54 M/UL (4.20-5.40) L Hemoglobin 9.9 G/DL (12.0-16.0) L Hematocrit 32.1 % (37.0-47.0) L Mean Corpuscular Volume 91 FL (80-99) Mean Corpuscular Hemoglobin 28.0 PG (27.0-31.0) Mean Corpuscular Hemoglobin Concent 30.9 G/DL (32.0-36.0) L Red Cell Distribution Width 15.5 % (11.6-14.8) H Platelet Count 408 K/UL (150-450) Mean Platelet Volume 6.0 FL (6.5-10.1) L Neutrophils (%) (Auto) 71.4 % (45.0-75.0) Lymphocytes (%) (Auto) 15.0 % (20.0-45.0) L Monocytes (%) (Auto) 11.0 % (1.0-10.0) H Eosinophils (%) (Auto) 2.1 % (0.0-3.0) Basophils (%) (Auto) 0.6 % (0.0-2.0) Sodium Level 138 MMOL/L (136-145) Potassium Level 3.9 MMOL/L (3.5-5.1) Chloride Level 99 MMOL/L (98-107) Carbon Dioxide Level 36 MMOL/L (21-32) H Anion Gap 3 mmol/L (5-15) L Blood Urea Nitrogen 35 mg/dL (7-18) H Creatinine 1.4 MG/DL (0.55-1.30) H Estimat Glomerular Filtration Rate mL/min (>60) Glucose Level 165 MG/DL (74-106) H Calcium Level 8.8 MG/DL (8.5-10.1) Total Bilirubin 0.4 MG/DL (0.2-1.0) Aspartate Amino Transf (AST/SGOT) 14 U/L (15-37) L Alanine Aminotransferase (ALT/SGPT) 13 U/L (12-78) Alkaline Phosphatase 103 U/L (46-116) Pro-B-Type Natriuretic Peptide 4464 pg/mL (0-125) H Total Protein 6.3 G/DL (6.4-8.2) L Albumin 2.4 G/DL (3.4-5.0) L Globulin 3.9 g/dL Albumin/Globulin Ratio 0.6 (1.0-2.7) L Current Medications Medications (Trade) Dose Ordered Sig/Willy Route PRN Reason Start Time Stop Time Status Last Admin Dose Admin Acetaminophen (Tylenol) 650 mg Q6H PRN ORAL Mild Pain/Temp > 100.5 02/12/19 18:15 03/11/19 18:14 02/17/19 08:33 Amlodipine Besylate (Norvasc) 5 mg DAILY ORAL 02/13/19 09:00 03/11/19 08:59 02/18/19 08:49 Apixaban (Eliquis) 5 mg BID ORAL 02/12/19 18:00 03/10/19 08:59 02/18/19 08:49 Aspirin (ASA) 81 mg DAILY ORAL 02/13/19 09:00 03/10/19 08:59 02/18/19 08:49 Atorvastatin Calcium (Lipitor) 80 mg BEDTIME ORAL 02/12/19 21:00 03/10/19 20:59 02/17/19 20:35 Dextrose (Dextrose 50%) 25 ml Q30M PRN IV Hypoglycemia 02/12/19 18:15 03/14/19 07:14 Dextrose (Dextrose 50%) 50 ml Q30M PRN IV Hypoglycemia 02/12/19 18:15 03/14/19 07:14 Docusate Sodium (Colace) 100 mg TWICE A DAY ORAL 02/15/19 09:00 03/17/19 08:59 02/18/19 08:49 Fluconazole (Diflucan) 100 mg DAILY ORAL 02/18/19 09:00 02/25/19 08:59 02/18/19 08:48 Hydralazine HCl (Apresoline) 50 mg EVERY 8 HOURS ORAL 02/12/19 22:00 03/10/19 05:59 02/18/19 05:36 Insulin Aspart (NovoLOG) BEFORE MEALS AND HS SUBQ 02/12/19 21:00 03/14/19 11:29 02/18/19 12:49 Insulin Detemir (Levemir) 12 units BID SUBQ 02/13/19 09:00 03/10/19 20:59 02/18/19 08:51 Metformin HCl (Glucophage) 500 mg BID ORAL 02/14/19 09:00 03/16/19 08:59 02/18/19 08:48 Metoprolol Tartrate (Lopressor) 50 mg Q6HR ORAL 02/12/19 18:00 03/11/19 18:29 02/18/19 12:46 Nateglinide (Starlix) 120 mg TIAC ORAL 02/13/19 11:30 03/15/19 11:29 02/18/19 12:46 Ondansetron HCl (Zofran) 4 mg Q4H PRN IVP Nausea & Vomiting 02/16/19 17:15 03/18/19 17:14 02/16/19 17:38 Pantoprazole (Protonix) 40 mg ACBREAKFAST ORAL 02/14/19 06:30 03/16/19 06:29 02/18/19 06:02 Prednisone (predniSONE) 10 mg DAILY ORAL 02/14/19 09:00 03/16/19 08:59 02/18/19 08:48 Salmeterol Xinafoate/ Fluticasone (Advair 250/50 Diskus) 1 puffs BID INH 02/15/19 18:00 03/17/19 17:59 02/18/19 08:39 Sitagliptin Phosphate (Januvia) 50 mg ACBREAKFAST ORAL 02/17/19 06:30 03/19/19 06:29 02/18/19 06:02 Tramadol HCl (Ultram) 50 mg Q6H PRN ORAL Severe Pain (Pain Scale 7-10) 02/14/19 20:30 02/21/19 20:29 02/15/19 17:28 Jose Cutler MD Feb 18, 2019 13:41
[2019-02-18] MEDS ORDERED: ELIQUIS5 MG ORAL (15:13)
[2019-02-18] MEDS ORDERED: LEVEMIR FL100 UNIT/1 SUBQ (15:13)
[2019-02-18] MEDS ORDERED: STARLIX120 MG ORAL (15:13)
[2019-02-18] MEDS ORDERED: NOVOLOG100 UNITS1 SUBQ (15:13)
[2019-02-18] MEDS ORDERED: NORVASC5 MG ORAL (15:13)
[2019-02-18] MEDS ORDERED: JANUVIA50 MG ORAL (15:13)
[2019-02-18] MEDS ORDERED: GLUCOPHAGE500 MG ORAL (15:13)
[2019-02-18] MEDS ORDERED: PREDNISONE10 MG ORAL (15:13)
--- NOTE | 2019-02-18 15:15 | Pulmonology Progress Note ---
Assessment/Plan Assessment/Plan 1. Congestive heart failure. 2. Diabetes, out of control. 3. Altered mental status due to CO2 narcosis 4. COPD with resp failure 5. Sleep apnea. 6. Atrial fibrillation, not on anticoagulants. 7. Coronary heart disease. 8. Aortic atherosclerosis. 9. 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, mild hypercarbia, stable steroid PO DC plan to snf w BiPAP disc w RN Subjective ROS Limited/Unobtainable: Yes Allergies: Coded Allergies: SULFA (SULFONAMIDE ANTIBIOTICS) (Unverified Allergy, Unknown, 02/08/19) Uncoded Allergies: SULFA (Allergy, Unknown, 02/07/19) Objective Last 24 Hour Vital Signs Date Time Temp Pulse Resp B/P (MAP) Pulse Ox O2 Delivery O2 Flow Rate FiO2 02/18/19 12:46 59 143/62 02/18/19 12:00 98.2 90 16 103/51 (68) 97 02/18/19 12:00 86 02/18/19 09:00 Nasal Cannula 2.0 Simple Mask 2.0 Nasal Cannula 2.0 02/18/19 08:49 73 143/100 02/18/19 08:39 94 18 97 Nasal Cannula 2.0 28 02/18/19 08:39 94 18 97 Nasal Cannula 2.0 28 02/18/19 08:00 98.6 73 16 143/100 (114) 98 02/18/19 08:00 91 02/18/19 07:00 97 Nasal Cannula 2.0 28 02/18/19 05:36 78 144/76 02/18/19 05:36 144/76 02/18/19 05:23 78 17 98 Facial 28 02/18/19 04:00 98.2 81 17 144/76 (98) 100 02/18/19 04:00 88 02/18/19 02:31 81 18 99 Facial 28 02/18/19 00:32 84 16 98 Facial 28 02/18/19 00:00 98.1 82 19 118/77 (91) 98 02/18/19 00:00 99 02/17/19 23:30 82 118/77 02/17/19 23:08 85 17 97 Facial 28 02/17/19 22:00 101/57 02/17/19 21:00 Nasal Cannula 2.0 Nasal Cannula 2.0 Nasal Cannula 2.0 02/17/19 20:00 83 02/17/19 20:00 98.0 87 17 101/57 (72) 92 02/17/19 19:42 88 18 96 Nasal Cannula 2.0 28 02/17/19 19:42 96 Nasal Cannula 2.0 28 02/17/19 19:40 88 18 96 Nasal Cannula 2.0 28 02/17/19 17:27 82 125/70 02/17/19 16:00 82 02/17/19 16:00 97.1 62 18 125/70 (88) 97 Intake and Output 02/17/19 02/18/19 18:59 06:59 Intake Total 480 ml 485 ml Output Total 450 ml 600 ml Balance 30 ml -115 ml Intake Oral 480 ml 360 ml IV Total 125 ml Output Urine Total 450 ml 600 ml # Voids 1 General Appearance: no acute distress Respiratory/Chest: lungs clear Cardiovascular: normal rate Microbiology Date/Time Source Procedure Growth Status 02/17/19 07:30 Sputum Induced Gram Stain - Final Resulted 02/17/19 07:30 Sputum Induced Sputum Culture Pending Resulted Laboratory Tests 02/18/19 06:06: White Blood Count 10.9H, Red Blood Count 3.54L, Hemoglobin 9.9L, Hematocrit 32.1L, Mean Corpuscular Volume 91, Mean Corpuscular Hemoglobin 28.0, Mean Corpuscular Hemoglobin Concent 30.9L, Red Cell Distribution Width 15.5H, Platelet Count 408, Mean Platelet Volume 6.0L, Neutrophils (%) (Auto) 71.4, Lymphocytes (%) (Auto) 15.0L, Monocytes (%) (Auto) 11.0H, Eosinophils (%) (Auto ) 2.1, Basophils (%) (Auto) 0.6, Sodium Level 138, Potassium Level 3.9, Chloride Level 99, Carbon Dioxide Level 36H, Anion Gap 3L, Blood Urea Nitrogen 35H, Creatinine 1.4H, Estimat Glomerular Filtration Rate , Glucose Level 165H, Calcium Level 8.8, Total Bilirubin 0.4, Aspartate Amino Transf (AST/SGOT) 14L, Alanine Aminotransferase (ALT/SGPT) 13, Alkaline Phosphatase 103, Pro-B-Type Natriuretic Peptide 4464H, Total Protein 6.3L, Albumin 2.4L, Globulin 3.9, Albumin/Globulin Ratio 0.6L Current Medications Medications (Trade) Dose Ordered Sig/Willy Route PRN Reason Start Time Stop Time Status Last Admin Dose Admin Acetaminophen (Tylenol) 650 mg Q6H PRN ORAL Mild Pain/Temp > 100.5 02/12/19 18:15 03/11/19 18:14 02/17/19 08:33 Amlodipine Besylate (Norvasc) 5 mg DAILY ORAL 02/13/19 09:00 03/11/19 08:59 02/18/19 08:49 Apixaban (Eliquis) 5 mg BID ORAL 02/12/19 18:00 03/10/19 08:59 02/18/19 08:49 Aspirin (ASA) 81 mg DAILY ORAL 02/13/19 09:00 03/10/19 08:59 02/18/19 08:49 Atorvastatin Calcium (Lipitor) 80 mg BEDTIME ORAL 02/12/19 21:00 03/10/19 20:59 02/17/19 20:35 Dextrose (Dextrose 50%) 25 ml Q30M PRN IV Hypoglycemia 02/12/19 18:15 03/14/19 07:14 Dextrose (Dextrose 50%) 50 ml Q30M PRN IV Hypoglycemia 02/12/19 18:15 03/14/19 07:14 Docusate Sodium (Colace) 100 mg TWICE A DAY ORAL 02/15/19 09:00 03/17/19 08:59 02/18/19 08:49 Fluconazole (Diflucan) 100 mg DAILY ORAL 02/18/19 09:00 02/25/19 08:59 02/18/19 08:48 Hydralazine HCl (Apresoline) 50 mg EVERY 8 HOURS ORAL 02/12/19 22:00 03/10/19 05:59 02/18/19 05:36 Insulin Aspart (NovoLOG) BEFORE MEALS AND HS SUBQ 02/12/19 21:00 03/14/19 11:29 02/18/19 12:49 Insulin Detemir (Levemir) 12 units BID SUBQ 02/13/19 09:00 03/10/19 20:59 02/18/19 08:51 Metformin HCl (Glucophage) 500 mg BID ORAL 02/14/19 09:00 03/16/19 08:59 02/18/19 08:48 Metoprolol Tartrate (Lopressor) 50 mg Q6HR ORAL 02/12/19 18:00 03/11/19 18:29 02/18/19 12:46 Nateglinide (Starlix) 120 mg TIAC ORAL 02/13/19 11:30 03/15/19 11:29 02/18/19 12:46 Ondansetron HCl (Zofran) 4 mg Q4H PRN IVP Nausea & Vomiting 02/16/19 17:15 03/18/19 17:14 02/16/19 17:38 Pantoprazole (Protonix) 40 mg ACBREAKFAST ORAL 02/14/19 06:30 03/16/19 06:29 02/18/19 06:02 Prednisone (predniSONE) 10 mg DAILY ORAL 02/14/19 09:00 03/16/19 08:59 02/18/19 08:48 Salmeterol Xinafoate/ Fluticasone (Advair 250/50 Diskus) 1 puffs BID INH 02/15/19 18:00 03/17/19 17:59 02/18/19 08:39 Sitagliptin Phosphate (Januvia) 50 mg ACBREAKFAST ORAL 02/17/19 06:30 03/19/19 06:29 02/18/19 06:02 Tramadol HCl (Ultram) 50 mg Q6H PRN ORAL Severe Pain (Pain Scale 7-10) 02/14/19 20:30 02/21/19 20:29 02/15/19 17:28 Blu Brink MD Feb 18, 2019 15:15
[2019-02-18 16:00] VITALS: BP 151/71
--- NOTE | 2019-02-18 16:47 | NUR ---
*-* INSURANCE *-* ALL CLINICALS AND REVIEWS HAVE BEEN FAXED TO: [facility] P: [phone] F: [phone] (FAX CLINICALS)
--- NOTE | 2019-02-18 19:59 | NUR ---
HAND-OFF: Report given to ANDREW Askew. Plan of care endorsed.
[2019-02-18 20:00] VITALS: BP 132/77
--- NOTE | 2019-02-18 20:06 | NUR ---
NURSE NOTES: Received report from Ebenezer Pelletier RN. Patient in bed AAO X2 with family at bedside, Serbian speaking with some Belarusian. No complaints of acute pain or distress at this time. Placed on continuous cardiac monitoring per protocol. On Bipap HS and PRN, tolerates well. Safety precaution in place; siderails X3 up, call light within reach, bed in lowest position, brakes and alarm on at all times. DC order active per MD.
--- NOTE | 2019-02-18 21:00 | NUR ---
NURSE NOTES: Spoke with Fe from [facility] regarding patients BiPAP order to be transferred to [place] re[facility] upon DC. Explained that CM deals with insurance details and placement, will endorse in the morning to follow up.
[2019-02-18] MEDS: Atorvastatin 80mg tab ORAL SCH (22:09)
--- NOTE | 2019-02-18 22:27 | NUR ---
RESPIRATORY NOTE: Alert/awake pt on 28% Venturi Mask now placed on BiPAP for nightly use. Pt on BiPAP /, back up rate 12, 28%. Pt is on a Facial Mask, skin intact, no redness/breakdowns noted. Foam tape applied on pt's nosebridge/cheeks/chin to prevent any mask irritations. B/S sarthak. diminished, nonproductive cough. BiPAP plugged into red outlet, alarms on & audible. Pt in no apparent distress at this time. Will continue plan of care.
--- NOTE | 2019-02-18 22:41 | NUR ---
NURSE NOTES: Spoke with Jovanni Brink MD. New orders received and carried out. Will continue plan of care.
[2019-02-18] MEDS ORDERED: Fleet's Enema 133ml RECTAL SCH (23:00)
[2019-02-18] MEDS ORDERED: Milk of Magnesia 30ml Ud ORAL SCH (23:00)
[2019-02-19] VITALS: BP 158/70
[2019-02-19] MEDS: Metoprolol Tartrate 50mg tab ORAL SCH ×4 (01:08→17:18)
--- NOTE | 2019-02-19 03:15 | Progress Note ---
DATE: 02/18/2019 CARDIOLOGY PROGRESS NOTE SUBJECTIVE: The patient continues to require episodic BiPAP support due to respiratory acidosis. Her blood pressure parameters are labile, but overall range is adequate. Heart rate is in the range of 73 to 94 with sinus rhythm and rare ectopics. She remains afebrile. PHYSICAL EXAMINATION: LUNGS: Diminished breath sounds. No wheezing. HEART: Regular rhythm and rate. Normal S1, S2 with no new murmur. ABDOMEN: Soft. EXTREMITIES: There is no edema. LABORATORY DATA: White count 10.9, hemoglobin 9.9. BUN 35, creatinine 1.4, bicarb 36, sodium 138, potassium 3.9. Albumin 2.4. Pro-natriuretic peptide 4450. IMPRESSION: 1. Respiratory failure. 2. Acute on chronic respiratory acidosis. 3. Acute on chronic diastolic congestive heart failure. 4. Paroxysmal atrial fibrillation. 5. COPD. 6. Coronary atherosclerosis with stable angina. 7. Cerebrovascular disease with history of CVA. PLAN: 1. Anticoagulation with apixaban for cardioembolic prophylaxis. 2. BiPAP support as needed. 3. Respiratory hygiene and bronchodilators. 4. Steroid taper per financial sales associate. 5. Continue current antihypertensives with titration and hold parameters. 6. Cautious use of beta-blockers in this clinical setting. 7. Observe for secondary bronchospasm. Dominic Martínez M.D. DR: JOSE DANIEL JOB#: [id number] CC:
[2019-02-19 04:00] VITALS: BP 148/77
--- NOTE | 2019-02-19 04:00 | NUR ---
NURSE NOTES: Patient with episode of confusion; pulling out IV lines, taking off BiPAP mask and trying to eat the foam inside of it. Asked what she was doing. answered "Comida". Explained to her that that is not edible but unable to comprehend. notified Soffer. ALCALA regarding patients LOLI. New order for bilateral tied Mittens (non-behavioral restraint) received and carried out. Restraint protocol followed and observed per protocol. Will continue to monitor.
[2019-02-19] MEDS: HydrALAZINE 50mg tab ORAL SCH ×2 (05:38→13:59)
[2019-02-19] MEDS: sitaGLIPtin 50mg tab ORAL SCH (05:38)
[2019-02-19] MEDS: NovoLOG Insulin Flexpen SUBQ SCH ×3 (05:39→16:47)
[2019-02-19] MEDS: Wixela 250/50 Inhaler - 60 dose INH SCH ×2 (07:14→19:13)
--- NOTE | 2019-02-19 07:59 | NUR ---
HAND-OFF: Report given to Julia Reyes RN. Patient in bed in stable condition. Endorsed plan of care.
[2019-02-19 08:00] VITALS: BP 125/63
--- NOTE | 2019-02-19 08:00 | NUR ---
NURSE NOTES: Received report from ANDREW Askew. in bed AAO X2 eating breakfast. Danish speaking with some Arabic. No complaints of acute pain or distress at this time. Placed on continuous cardiac monitoring per protocol. On Bipap HS and PRN, tolerates well. Safety precaution in place; siderails X3 up, call light within reach, bed in lowest position, brakes and alarm on at all times. Will continue with the plan of care.
[2019-02-19] MEDS: Docusate 100mg cap ORAL SCH ×3 (08:56→17:18)
[2019-02-19] MEDS: metFORMIN 500mg tab ORAL SCH ×2 (08:56→17:17)
[2019-02-19] MEDS: Fluconazole 100mg tab ORAL SCH (08:56)
[2019-02-19] MEDS: Aspirin Baby 81mg ORAL SCH (08:56)
[2019-02-19] MEDS: Eliquis 5mg tablet ORAL SCH ×2 (08:57→17:20)
[2019-02-19] MEDS: Levemir Flexpen SUBQ SCH ×2 (09:00→17:24)
--- NOTE | 2019-02-19 09:50 | Pulmonology Progress Note ---
Assessment/Plan Assessment/Plan 1. Congestive heart failure, controlled 2. Diabetes, out of control, now controlled 3. Altered mental status due to CO2 narcosis, stable 4. COPD with resp failure, stable 5. Sleep apnea. 6. Atrial fibrillation, not on anticoagulants. 7. Coronary heart disease. 8. Aortic atherosclerosis. 9. 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, mild hypercarbia, stable steroid PO DC plan to snf w BiPAP - awaiting bed availability disc w RN, embedded case manager Subjective ROS Limited/Unobtainable: Yes Allergies: Coded Allergies: SULFA (SULFONAMIDE ANTIBIOTICS) (Unverified Allergy, Unknown, 02/08/19) Uncoded Allergies: SULFA (Allergy, Unknown, 02/07/19) Objective Last 24 Hour Vital Signs Date Time Temp Pulse Resp B/P (MAP) Pulse Ox O2 Delivery O2 Flow Rate FiO2 02/19/19 08:58 84 125/63 02/19/19 07:13 73 20 96 Venturi Mask 4.0 28 02/19/19 07:12 73 20 96 Venturi Mask 3.0 28 02/19/19 07:06 96 Venturi Mask 3.0 28 02/19/19 05:38 91 148/77 02/19/19 05:38 148/77 02/19/19 05:27 88 22 98 Facial 28 02/19/19 04:00 81 02/19/19 04:00 98.7 91 18 148/77 (100) 97 02/19/19 03:06 89 19 98 Facial 28 02/19/19 01:11 83 22 97 Facial 28 02/19/19 01:08 70 158/70 02/19/19 00:00 98.6 86 18 158/70 (99) 95 02/19/19 00:00 97 02/18/19 22:26 80 14 95 Facial 28 02/18/19 22:11 132/77 02/18/19 21:00 Nasal Cannula 2.0 Simple Mask 2.0 Nasal Cannula 2.0 02/18/19 20:00 98.7 79 18 132/77 (95) 94 02/18/19 20:00 91 02/18/19 19:43 75 18 96 Venturi Mask 4.0 28 02/18/19 19:43 75 18 96 Venturi Mask 4.0 28 02/18/19 19:43 96 Venturi Mask 4.0 28 02/18/19 18:03 75 112/61 02/18/19 16:00 90 02/18/19 16:00 98.2 75 22 151/71 (97) 91 02/18/19 12:46 59 143/62 02/18/19 12:00 98.2 90 16 103/51 (68) 97 02/18/19 12:00 86 Intake and Output 02/18/19 02/19/19 19:00 07:00 Intake Total 120 ml Balance 120 ml Intake Oral 120 ml # Voids 3 General Appearance: no acute distress HEENT: atraumatic Respiratory/Chest: lungs clear Cardiovascular: normal rate Neurologic/Psychiatric: disoriented - confused Musculoskeletal: normal muscle bulk Microbiology Date/Time Source Procedure Growth Status 02/17/19 07:30 Sputum Induced Gram Stain - Final Resulted 02/17/19 07:30 Sputum Culture - Preliminary Usual Upper Respiratory Dyan Resulted Current Medications Medications (Trade) Dose Ordered Sig/Willy Route PRN Reason Start Time Stop Time Status Last Admin Dose Admin Acetaminophen (Tylenol) 650 mg Q6H PRN ORAL Mild Pain/Temp > 100.5 02/12/19 18:15 03/11/19 18:14 02/17/19 08:33 Amlodipine Besylate (Norvasc) 5 mg DAILY ORAL 02/13/19 09:00 03/11/19 08:59 02/19/19 08:58 Apixaban (Eliquis) 5 mg BID ORAL 02/12/19 18:00 03/10/19 08:59 02/19/19 08:57 Aspirin (ASA) 81 mg DAILY ORAL 02/13/19 09:00 03/10/19 08:59 02/19/19 08:56 Atorvastatin Calcium (Lipitor) 80 mg BEDTIME ORAL 02/12/19 21:00 03/10/19 20:59 02/18/19 22:09 Dextrose (Dextrose 50%) 25 ml Q30M PRN IV Hypoglycemia 02/12/19 18:15 03/14/19 07:14 Dextrose (Dextrose 50%) 50 ml Q30M PRN IV Hypoglycemia 02/12/19 18:15 03/14/19 07:14 Docusate Sodium (Colace) 100 mg TWICE A DAY ORAL 02/15/19 09:00 03/17/19 08:59 02/19/19 08:56 Docusate Sodium (Colace) 100 mg TWICE A DAY ORAL 02/19/19 09:00 03/21/19 08:59 Fluconazole (Diflucan) 100 mg DAILY ORAL 02/18/19 09:00 02/25/19 08:59 02/19/19 08:56 Hydralazine HCl (Apresoline) 50 mg EVERY 8 HOURS ORAL 02/12/19 22:00 03/10/19 05:59 02/19/19 05:38 Insulin Aspart (NovoLOG) BEFORE MEALS AND HS SUBQ 02/12/19 21:00 03/14/19 11:29 02/18/19 22:13 Insulin Detemir (Levemir) 12 units BID SUBQ 02/13/19 09:00 03/10/19 20:59 02/19/19 09:00 Metformin HCl (Glucophage) 500 mg BID ORAL 02/14/19 09:00 03/16/19 08:59 02/19/19 08:56 Metoprolol Tartrate (Lopressor) 50 mg Q6HR ORAL 02/12/19 18:00 03/11/19 18:29 02/19/19 05:38 Nateglinide (Starlix) 120 mg TIAC ORAL 02/13/19 11:30 03/15/19 11:29 02/19/19 05:37 Ondansetron HCl (Zofran) 4 mg Q4H PRN IVP Nausea & Vomiting 02/16/19 17:15 03/18/19 17:14 02/16/19 17:38 Pantoprazole (Protonix) 40 mg ACBREAKFAST ORAL 02/14/19 06:30 03/16/19 06:29 02/19/19 05:38 Prednisone (predniSONE) 10 mg DAILY ORAL 02/14/19 09:00 03/16/19 08:59 02/19/19 08:56 Salmeterol Xinafoate/ Fluticasone (Advair 250/50 Diskus) 1 puffs BID INH 02/15/19 18:00 03/17/19 17:59 02/19/19 07:14 Sitagliptin Phosphate (Januvia) 50 mg ACBREAKFAST ORAL 02/17/19 06:30 03/19/19 06:29 02/19/19 05:38 Tramadol HCl (Ultram) 50 mg Q6H PRN ORAL Severe Pain (Pain Scale 7-10) 02/14/19 20:30 02/21/19 20:29 02/15/19 17:28 Blu Brink MD Feb 19, 2019 09:50
--- NOTE | 2019-02-19 10:11 | NUR ---
NURSE NOTES: patient calm, hand mittens was off and removed by pt. Dr Brink was notified.
[2019-02-19 12:00] VITALS: BP 122/61
--- NOTE | 2019-02-19 13:38 | NUR ---
PROTOTYPE CARPENTER NOTES SPOKE WITH NATHANIEL FROM [facility]. BIPAP TO BE DELIVERED TO [facility] BETWEEN 3-6. TRANSPORTATION TO BE ARRANGED BY [facility] NO DEFINITIVE TIME CONFIRMED @ THIS TIME. PT WILL DC TO [facility] ROOM 211 BED A. NURSE TO CALL REPORT [phone]. FAMILY MADE AWARE.
--- NOTE | 2019-02-19 15:22 | NUR ---
*-* INSURANCE *-* ALL CLINICALS AND REVIEWS HAVE BEEN FAXED TO: [facility] P: [phone] F: [phone] (FAX CLINICALS)
[2019-02-19 16:00] VITALS: BP 145/66
[2019-02-19 17:18] VITALS: BP 165/69
--- NOTE | 2019-02-19 19:27 | NUR ---
HAND-OFF: Report given to ANDREW Askew. Endorsed plan of care.
--- NOTE | 2019-02-19 19:30 | NUR ---
NURSE NOTES: Received report from Julia Reyes RN. Patient in bed AAO X2-3, [place] speaking with some Azeri. No complaints of acute pain or distress at this time. Placed on continuous cardiac monitoring per protocol. On Bipap HS and PRN, tolerates well. Safety precaution in place; siderails X3 up, call light within reach, bed in lowest position, brakes and alarm on at all times.
--- NOTE | 2019-02-19 19:45 | NUR ---
HAND-OFF: Patient transferred out the unit to [facility] via [facility] transport. Endorsed plan of care.
--- NOTE | 2019-02-20 03:30 | Progress Note ---
DATE: 02/19/2019 CARDIOLOGY PROGRESS NOTE SUBJECTIVE: The patient is comfortable with no shortness of breath. She is on low-dose steroid. She remains on full anticoagulation for cardioembolic prophylaxis. OBJECTIVE: VITAL SIGNS: Blood pressure 148/77, pulse 91, and respirations 22. LUNGS: Good breath sounds. HEART: Regular rhythm and rate. Normal S1 and S2. ABDOMEN: Soft. No edema. IMPRESSION: 1. Acute on chronic diastolic congestive heart failure, now compensated. 2. Paroxysmal atrial fibrillation, stable. 3. Coronary artery disease with stable angina. 4. Atherosclerosis, on anticoagulation and anti-lipid drugs. 5. Status post respiratory failure due to chronic obstructive pulmonary disease. 6. Acute on chronic respiratory acidosis, on intermittent BiPAP. PLAN: Discharge medication list reviewed in anticipation of discharge to subacute facility today. Dominic Martínez M.D. DR: GARRY JOB#: [id number] CC:
--- NOTE | 2019-02-20 08:52 | Discharge Summary ---
Bijal Giordano BROOK 02/20/19 0852: Discharge Summary Discharge Summary _ DATE OF ADMISSION: 02/08/2019 DATE OF DISCHARGE: 02/19/2019 DISCHARGED BY: Dr Brink REASON FOR ADMISSION: 73 years old female with past medical history of congestive heart failure, type 2 diabetes mellitus, sick sinus syndrome, status post pacemaker implantation, COPD, sleep apnea, anemia, aortic atherosclerosis, coronary heart disease, chronic back pain, chronic diastolic heart failure, chronic kidney disease, hyperlipidemia, degenerative disc disease, peripheral neuropathy, morbid obesity , frequent falls, oxygen dependent at home, status post coronary stents, diabetic retinopathy, vitamin D deficiency, presented with shortness of breath and blood sugar out of control. Patient was recently hospitalized at another facility /[place] for acute CHF exacerbation and subsequently was discharged home. She became weak at home after several days, and family brought her to urgent care, where she was evaluated and found to have heart failure , elevated blood sugar 437 and hypoxia( 80% on room air). Patient was placed on 4 L of oxygen via basal cannula , pulse oximetry went up to 98%. Patient received Lasix and insulin and subsequently [facility]. However when she presented to the jail facility, due to her condition nursing staff refused admission , and paramedics brought her to the emergency room for further evaluation and management. Patient presented with generalized weakness and altered mental status. No reported fever and chills. No reported nausea and vomiting. CT of the head revealed old right frontal deep white matter lacunar infarct. Negative for acute intracranial bleeding or mass effect. Chest x-ray demonstrated cardiomegaly and pulmonary congestion. Laboratory work-up revealed no leukocytosis, hemoglobin 11.7, hematocrit 37.9, platelets 586. Potassium 6.6, BUN 26, creatinine 1.1. Glucose 424. Anion gap 3. Stable LFT. Initial troponin negative. Pro BNP 4070. EKG revealed sinus tachycardia with bifascicular block. Patient subsequently was admitted for congestive heart failure, diabetes mellitus [id number] and altered mental status. CONSULTANTS: char house supervisor ID specialist Founder Ceo & President Dr. Shay [facility] COURSE: Patient admitted to telemetry floor. Patient started on diuresis with close monitoring of volumes and cardiorenal parameters. Lockstitch Coat Joiner followed. Blood sugar was managed with insulin. Endocrinology consult was requested. Supplemental oxygen titrated to keep pulse oximetry above 90%. Pulmonary toilet with bronchodilator provided. Patient was on the BiPAP. The next day ER physician was called for evaluation to the ICU , since patient was becoming unstable on BiPAP and PCO2 was getting worse. Patient appeared to be lethargic . Patient subsequently was orally intubated and transferred to ICU. Patient was transferred to ICU. Ventilator support and pulmonary toilet provided. Echocardiogram revealed ejection fraction of 40 to 45% with global left ventricular hypokinesis. Mild left ventricular hypertrophy. No evidence of pericardial effusion. Right ventricular systolic pressure of 31. Telemetry showed atrial fibrillation. Venous duplex bilateral lower extremity revealed no evidence of acute DVT. Patient was continued on intravenous diuresis. Anti-failure and antihypertensive medications titrated as per char house supervisor. Patient started on full anticoagulation with apixaban for cardioembolic prophylaxis. Patient started on empiric antibiotics. ID specialist followed. Urine culture revealed Klebsiella. Sputum culture was negative. Blood cultures were negative. Repeated urine , blood and sputum culture were negative. Last urine culture revealed Sienna, colonizer as per ID specialist, and not required treatment. Antibiotic regimen was further optimized as per ID specialist recommendations. Leukocytosis , which started on the second day of the admission , resolved. No fevers. Patient completed antibiotics while in the hospital. ID specialist recommended to monitor patient off antibiotic and observe closely. Founder Ceo & President followed. Hemoglobin A1c 10, clearly not at goal. Anti-glycemic regimen was optimized as per national sales executive recommendation. Patient was on long-acting Levemir twice a day along with Januvia, Starlix, metformin, and sliding scale of insulin. Blood sugar improved. Patient was followed-up with ABG and chest x-ray. Ventilator settings adjusted as needed. Patient was able to be weaned from ventilator. Patient was placed on the BiPAP initially. Supplemental oxygen titrated as needed to keep pulse oximetry above 92%. Laboratory work-up revealed acute renal failure post diuresis . Diuresis subsequently was stopped. Initially started steroids for COPD exacerbation , were tapered. Renal parameters and electrolytes were closely monitored. Electrolytes/ potassium and magnesium corrected as needed. Creatinine down to 1.4 prior to discharge. Avoid nephrotoxic if possible in future Troponin levels were trending. First two troponin were negative , and then the last four revealed mild elevation. Per char house supervisor, patient had acute myocardial ischemia, possible non-STEMI. Antiplatelet therapy with aspirin provided. Beta-shai therapy started for rate control , and the dose was advanced. Blood pressure was managed with current regimen, and doses were optimized based on blood pressure readings , as per char house supervisor. Statin continued. Patient spontaneously converted to sinus return. Antiembolic prophylaxis with apixaban continued. Bleeding precaution maintained. No evidence of bleeding. GI prophylaxis provided. Hemoglobin and hematocrit remained stable. Discharge hemoglobin 9.9, hematocrit 32.1. Placement was found and secured at the jail facility. BiPAP was arranged to be delivered to the facility by [facility]. Patient was stable for discharge to jail facility for continuation of care. 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 DISCHARGE INSTRUCTIONS: Patient was discharged to the jail facility. Follow up with medical doctor at the facility. 73 years old female I have been assigned to dictate discharge summary for this account. I was not involved in the patient's management. Blu Brink MD 02/20/19 0952: Discharge Summary Discharge Summary _ On admission found to have respiratory failure with hypercapnea and required intubation and mechanical ventilation Bijal Giordano NP Feb 20, 2019 08:52 Blu Brink MD Feb 20, 2019 09:52
--- NOTE | 2019-02-20 13:43 | Diagnostic Imaging Report ---
APPROVED REPORT CPT Code: 39613 Present Symptoms Comments: LEFT LEG PAIN. LEFT LEG: Venous imaging reveals a patent deep venous system. There is no evidence of thrombus within the femoral, popliteal or tibial segments. The greater saphenous vein is also within normal limits. Doppler indicates normal spontaneous flow within these segments.
== END 2019-02-19 19:43 | DRG 280 ==
LOC: EDBD 22:51 → EMR 23:26 → 2E 02-08 03:10 → EDBEDREQ 02-08 03:49 → ICU 02-08 04:31 → 2E 02-12 18:00
DX: I13.0 Hypertensive heart and chronic kidney disease with heart failure and stage 1 through stage 4 chronic kidney disease, or unspecified chronic kidney disease (principal); A41.9 Sepsis, unspecified organism; I21.4 Non-ST elevation (NSTEMI) myocardial infarction; J96.02 Acute respiratory failure with hypercapnia; G93.41 Metabolic encephalopathy; J18.9 Pneumonia, unspecified organism; I50.43 Acute on chronic combined systolic (congestive) and diastolic (congestive) heart failure; I48.92 Unspecified atrial flutter; E87.2 Acidosis; E44.0 Moderate protein-calorie malnutrition; J44.0 Chronic obstructive pulmonary disease with (acute) lower respiratory infection; J44.1 Chronic obstructive pulmonary disease with (acute) exacerbation; N17.9 Acute kidney failure, unspecified; N39.0 Urinary tract infection, site not specified; E11.65 Type 2 diabetes mellitus with hyperglycemia; Z68.29 Body mass index [BMI] 29.0-29.9, adult; I25.5 Ischemic cardiomyopathy; G47.33 Obstructive sleep apnea (adult) (pediatric); Z95.0 Presence of cardiac pacemaker; I49.5 Sick sinus syndrome; E11.42 Type 2 diabetes mellitus with diabetic polyneuropathy; E11.319 Type 2 diabetes mellitus with unspecified diabetic retinopathy without macular edema; E78.5 Hyperlipidemia, unspecified; Z99.81 Dependence on supplemental oxygen; E55.9 Vitamin D deficiency, unspecified; I48.0 Paroxysmal atrial fibrillation; B96.1 Klebsiella pneumoniae [K. pneumoniae] as the cause of diseases classified elsewhere; I25.10 Atherosclerotic heart disease of native coronary artery without angina pectoris; Z95.5 Presence of coronary angioplasty implant and graft; E83.42 Hypomagnesemia; N18.9 Chronic kidney disease, unspecified; E11.22 Type 2 diabetes mellitus with diabetic chronic kidney disease; Z86.73 Personal history of transient ischemic attack (TIA), and cerebral infarction without residual deficits
CPT/HCPCS: 36415; 36600; 70450; 71045; 74018; 80048; 80053; 80061; 81003; 82550; 82553; 82803; 82962; 83036; 83735; 83880; 84132; 84443; 84484; 85007; 85025; 87040; 87070; 87081; 87086; 87181; 87205; 93005; 93306; 93970; 94002; 94003; 94640; 94660; 94664; 96365; 96375; 99285; J1815; J2405; J7620; J8499; S5561